=== PATIENT | male | born 1950 | race Caucasian/White ===

== ENCOUNTER → 2018-04-25 11:06 | Outpatient (CLI) | payer MEDICARE, SELFPAY ==
--- NOTE | 2018-04-25 11:06 | DT_ITS ---
This patient was seen during an EMR downtime April 18, 2018 - April 25, 2018. This patient may have a combination of paper and electronic documentation or all paper documentation. All documentation is viewable within the e-chart portion of [email or web address] for each patient visit.
[2018-04-25 12:22] LABS: PSA,Total- Diagnostic 2.23 ng/mL (0.0-4.0)
== END ==
PROVIDERS: Visit Provider Nurse Practitioner Adult Health
DX: R97.20 Elevated prostate specific antigen [PSA] (principal)
CPT/HCPCS: 36415; 84153

== ENCOUNTER → 2018-11-11 08:35 | Outpatient (CLI) | payer MEDICARE, SELFPAY ==
[2018-11-11 07:59] VITALS: BMI 35.6
[2018-11-11 09:50] LABS: Hemoglobin A1c 7.3 % (4.2-6.3)
[2018-11-11 10:11] LABS: Cholesterol 141 mg/dL (200); High Density Lipoprotein 60 mg/dL; Microalbumin:Creatinine Ratio 14.9 mg/g CRE (<30 mg/g CRE); PSA,Total- Diagnostic 0.71 ng/mL (0.0-4.0); Triglycerides 58 mg/dL; Very Low Density Lipoprotein 12 mg/dL (5-40)
== END ==
PROVIDERS: Family Provider Internal Medicine; PCP Internal Medicine; Referring Provider Nurse Practitioner Adult Health; Visit Provider Nurse Practitioner Adult Health
DX: E11.9 Type 2 diabetes mellitus without complications (principal); R97.20 Elevated prostate specific antigen [PSA]
CPT/HCPCS: 80061; 82043; 82570; 83036; 84153

== ENCOUNTER → 2019-03-02 09:29 | Outpatient (CLI) | payer MEDICARE, SELFPAY ==
[2019-03-02 09:01] VITALS: BMI 35.6
[2019-03-02 12:30] LABS: Hemoglobin A1c 6.8 % (4.2-6.3)
== END ==
PROVIDERS: Family Provider Internal Medicine; PCP Internal Medicine; Visit Provider Nurse Practitioner Family
DX: E11.9 Type 2 diabetes mellitus without complications (principal)
CPT/HCPCS: 36415; 83036

== ENCOUNTER → 2019-06-01 09:58 | Outpatient (CLI) | payer MEDICARE, SELFPAY ==
[2019-06-01 09:20] VITALS: BMI 35.6
--- NOTE | 2019-06-01 10:01 | EKG12_ITS ---
Test Reason : PALPITATIONS Blood Pressure : / mmHG Vent. Rate : 075 BPM Atrial Rate : 075 BPM P-R Int : 196 ms QRS Dur : 156 ms QT Int : 414 ms P-R-T Axes : -09 -52 005 degrees QTc Int : 462 ms Sinus rhythm with occasional Premature ventricular complexes Right bundle branch block Left anterior fascicular block Bifascicular block Abnormal ECG Confirmed by BOBBI SAUL, GERMAINE ([id number]), industrial editor MADYSON SANDS ([id number]) on 06/02/2019 1:39:48 PM Referred By: Junior Dominguez Confirmed By:JONNATHAN MARTINES MD
== END ==
PROVIDERS: Family Provider Internal Medicine; PCP Internal Medicine; Referring Provider Nurse Practitioner Family; Visit Provider Nurse Practitioner Family
DX: I49.9 Cardiac arrhythmia, unspecified (principal)
CPT/HCPCS: 93005

== ENCOUNTER → 2019-11-29 08:34 | Outpatient (CLI) | payer MEDICARE, SELFPAY ==
[2019-11-29 08:12] VITALS: BMI 37.3
[2019-11-29 12:16] LABS: Hematocrit 38.6 % (40-54); Hemoglobin 13.3 g/dL (13.0-16.5); Mean Corp Hgb Conc 34.5 g/dL (32-36); Mean Corpuscular Hgb 30.6 pg (27.0-32.0); Mean Corpuscular Volume 88.9 fL (80-94); Mean Platelet Vol. 9.3 fl (6.2-12.0); Platelet Count 233 K/mm3 (150-450); RBC Distribution Width CV 12.7 % (11.6-14.6); RBC Distribution Width SD 41.4 fl (35.1-43.9); Red Blood Count 4.34 M/mm3 (4.6-6.2); White Blood Count 6.7 K/mm3 (4.4-11.0)
[2019-11-29 12:36] LABS: ALB/GLOB Ratio 0.9 RATIO (0.9-2.4); AST(SGOT) 49 U/L (15-37); Alanine Aminotransfer ALT/SGPT 54 U/L (16-61); Albumin, Serum 3.6 g/dL (3.2-5.0); Alkaline Phosphatase 79 U/L (45-117); Anion Gap 7 (5-15); BUN 17 mg/dL (7-18); BUN/Creat Ratio 13.4 RATIO (10-20); Calcium,Total 9.4 mg/dL (8.5-10.1); Chloride 102 mmol/L (98-107); Cholesterol 177 mg/dL (200); Creatinine, Serum 1.27 mg/dL (0.70-1.30); EST Glomerular Filtration Rate 60 mL/min (>60); Est Glom Filt Rate - Afr Amer 72 mL/min (>60); Globulin 3.8 g/dL (2.2-4.2); Glucose 164 mg/dL (74-106); High Density Lipoprotein 51 mg/dL; PSA,Total - Annual Screen 0.34 ng/mL (0.00-4.00); Potassium 3.8 mmol/L (3.5-5.1); Protein, Total 7.4 g/dL (6.4-8.2); Sodium Level 136 mmol/L (136-145); Thyroid Stim Hormone (TSH) 4.29 uIU/mL (0.358-3.74); Triglycerides 106 mg/dL; Very Low Density Lipoprotein 21 mg/dL (5-40)
[2019-11-29 13:18] LABS: Microalbumin,Random Urine 6.5 mg/L (NO RANGE EST.)
[2019-11-29 16:42] LABS: T4 Free Direct 1.01 ng/dL (0.76-1.46)
== END ==
PROVIDERS: Family Provider Internal Medicine; PCP Internal Medicine; Visit Provider Nurse Practitioner Family
DX: E11.9 Type 2 diabetes mellitus without complications (principal); I10 Essential (primary) hypertension; Z12.5 Encounter for screening for malignant neoplasm of prostate; R79.89 Other specified abnormal findings of blood chemistry
CPT/HCPCS: 36415; 80053; 80061; 82043; 82570; 84153; 84439; 84443; 85027; G0103

== ENCOUNTER → 2020-06-06 09:23 | Outpatient (CLI) | payer MEDICARE, SELFPAY ==
[2020-06-06 08:48] VITALS: BMI 35.5
[2020-06-06 13:11] LABS: T4 Free Direct 1.04 ng/dL (0.76-1.46); Thyroid Stim Hormone (TSH) 3.64 uIU/mL (0.358-3.74)
[2020-06-06 14:36] LABS: Absolute Neutrophil Count 4.9 X10^3/uL (2.0-7.7); Basophil# 0.02 X10^3/uL; Basophil% 0.3 % (0-1); Eosinophil# 0.09 X10^3/uL; Eosinophils% 1.3 % (0-5); Hematocrit 38.7 % (40-54); Hemoglobin 13.1 g/dL (13.0-16.5); Lymphocyte % 21.2 % (19-41); Mean Corp Hgb Conc 33.9 g/dL (32-36); Mean Corpuscular Hgb 31.8 pg (27.0-32.0); Mean Corpuscular Volume 93.9 fL (80-94); Mean Platelet Vol. 9.4 fl (6.2-12.0); Monocyte# 0.51 X10^3/uL; Monocyte% 7.2 % (0-10); NRBC Flagged by Analyzer 0 % (0-5); Neutrophil % 69.3 % (47-70); Platelet Count 246 K/mm3 (150-450); RBC Distribution Width CV 12.8 % (11.6-14.6); RBC Distribution Width SD 43.9 fl (35.1-43.9); Red Blood Count 4.12 M/mm3 (4.6-6.2); White Blood Count 7.1 K/mm3 (4.4-11.0)
== END ==
PROVIDERS: Internal Medicine Hematology & Oncology; PCP Internal Medicine; Referring Provider Nurse Practitioner Family; Visit Provider Nurse Practitioner Family
DX: E03.9 Hypothyroidism, unspecified (principal); C83.07 Small cell B-cell lymphoma, spleen; E11.9 Type 2 diabetes mellitus without complications
CPT/HCPCS: 36415; 84439; 84443; 85025

== ENCOUNTER → 2020-10-03 07:05 | Outpatient (CLI) | payer MEDICARE, SELFPAY ==
[2020-10-03 07:23] LABS: Basophil# 0.05 X10^3/uL; Basophil% 0.7 % (0-1); Eosinophil# 0.18 X10^3/uL; Eosinophils% 2.6 % (0-5); Hematocrit 37.3 % (40-54); Hemoglobin 12.3 g/dL (13.0-16.5); Lymphocyte % 28.8 % (19-41); Mean Platelet Vol. 8.8 fl (6.2-12.0); Monocyte# 0.68 X10^3/uL; Monocyte% 9.8 % (0-10); NRBC Flagged by Analyzer 0 % (0-5); Neutrophil % 57.7 % (47-70); Platelet Count 321 K/mm3 (150-450); RBC Distribution Width CV 13.2 % (11.6-14.6); RBC Distribution Width SD 44.2 fl (35.1-43.9); Red Blood Count 3.97 M/mm3 (4.6-6.2); White Blood Count 6.9 K/mm3 (4.4-11.0)
[2020-10-03 07:50] LABS: ALB/GLOB Ratio 0.7 RATIO (0.9-2.4); AST(SGOT) 26 U/L (15-37); Alanine Aminotransfer ALT/SGPT 29 U/L (16-61); Albumin, Serum 3.2 g/dL (3.2-5.0); Alkaline Phosphatase 101 U/L (45-117); Anion Gap 4 (5-15); BUN 16 mg/dL (7-18); BUN/Creat Ratio 13.9 RATIO (10-20); Calcium,Total 9.3 mg/dL (8.5-10.1); Chloride 107 mmol/L (98-107); Cholesterol 130 mg/dL (200); Creatinine, Serum 1.15 mg/dL (0.70-1.30); EST Glomerular Filtration Rate 67 mL/min (>60); Est Glom Filt Rate - Afr Amer 81 mL/min (>60); Globulin 4.4 g/dL (2.2-4.2); Glucose 112 mg/dL (74-106); High Density Lipoprotein 45 mg/dL; Potassium 3.8 mmol/L (3.5-5.1); Protein, Total 7.6 g/dL (6.4-8.2); Sodium Level 140 mmol/L (136-145); Triglycerides 135 mg/dL; Very Low Density Lipoprotein 27 mg/dL (5-40)
[2020-10-03 07:53] LABS: Microalbumin,Random Urine 7.9 mg/L (NO RANGE EST.); Microalbumin:Creatinine Ratio 5.1 mg/g CRE (<30 mg/g CRE)
[2020-10-03 07:57] LABS: Hemoglobin A1c 7.1 % (3.8-5.6)
== END ==
PROVIDERS: PCP Internal Medicine; Referring Provider Nurse Practitioner Family; Visit Provider Nurse Practitioner Family
DX: E11.9 Type 2 diabetes mellitus without complications (principal); I10 Essential (primary) hypertension; J18.9 Pneumonia, unspecified organism
CPT/HCPCS: 36415; 80053; 80061; 82043; 82570; 83036; 85025

== ENCOUNTER → 2020-12-05 10:26 | Outpatient (CLI) | payer MEDICARE, SELFPAY ==
[2020-12-05 09:19] VITALS: BMI 34.9
[2020-12-05 12:30] LABS: Absolute Lymphocyte Count 2.27 X10^3/uL (0.83-4.51); Absolute Neutrophil Count 5.5 X10^3/uL (2.0-7.7); Basophil# 0.04 X10^3/uL; Basophil% 0.5 % (0-1); Eosinophil# 0.21 X10^3/uL; Eosinophils% 2.4 % (0-5); Hematocrit 40.4 % (40-54); Hemoglobin 13.8 g/dL (13.0-16.5); Lymphocyte # 2.27 X10^3/ul (4.0); Lymphocyte % 25.9 % (19-41); Mean Corp Hgb Conc 34.2 g/dL (32-36); Mean Corpuscular Hgb 30.5 pg (27.0-32.0); Mean Corpuscular Volume 89.2 fL (80-94); Mean Platelet Vol. 9.3 fl (6.2-12.0); NRBC Flagged by Analyzer 0 % (0-5); Neutrophil % 62.9 % (47-70); Platelet Count 254 K/mm3 (150-450); RBC Distribution Width CV 12.4 % (11.6-14.6); RBC Distribution Width SD 40.7 fl (35.1-43.9); Red Blood Count 4.53 M/mm3 (4.6-6.2); White Blood Count 8.8 K/mm3 (4.4-11.0)
[2020-12-05 12:50] LABS: ALB/GLOB Ratio 0.9 RATIO (0.9-2.4); AST(SGOT) 30 U/L (15-37); Alanine Aminotransfer ALT/SGPT 38 U/L (16-61); Albumin, Serum 3.7 g/dL (3.2-5.0); Alkaline Phosphatase 80 U/L (45-117); Anion Gap 8 (5-15); BUN 12 mg/dL (7-18); BUN/Creat Ratio 10.2 RATIO (10-20); Calcium,Total 9.3 mg/dL (8.5-10.1); Chloride 102 mmol/L (98-107); Creatinine, Serum 1.18 mg/dL (0.70-1.30); EST Glomerular Filtration Rate 65 mL/min (>60); Est Glom Filt Rate - Afr Amer 78 mL/min (>60); Globulin 3.9 g/dL (2.2-4.2); Glucose 116 mg/dL (74-106); Potassium 3.3 mmol/L (3.5-5.1); Protein, Total 7.6 g/dL (6.4-8.2); Sodium Level 138 mmol/L (136-145)
== END ==
PROVIDERS: PCP Internal Medicine; Referring Provider Nurse Practitioner Family; Visit Provider Nurse Practitioner Family
DX: L03.90 Cellulitis, unspecified (principal); E11.9 Type 2 diabetes mellitus without complications
CPT/HCPCS: 36415; 80053; 85025

== ENCOUNTER → 2020-12-27 06:38 | Outpatient (CLI) | payer MEDICARE, SELFPAY ==
[2020-12-05 09:19] VITALS: BMI 34.9
--- NOTE | 2020-12-27 13:54 | STRESSREP_ITS ---
Stress Test Report Date: 12/27/2020 Procedure: Pharmacologic stress nuclear imaging study Indications: Abnormal EKG, tachycardia Consent: Per the patient Procedure: The patient underwent pharmacologic (Regadenoson) evaluation with a peak heart rate of 89 beats per minute (59%predicted maximal heart rate) and a peak blood pressure of 130/82 mmHg. The baseline ECG demonstrated normal sinus rhythm, right bundle branch block. EKG during lexiscan infusion revealed no significant ischemic changes. EKG post infusion revealed no significant ischemic changes [There were no cardiac dysrhythmias pretest, during pharmacologic infusion, or recovery]. [There was no complaint of chest discomfort during pharmacologic infusion or recovery]. The examination was discontinued secondary to completion of protocol. Impression: 1. Lexiscan stress test test is negative for Lexiscan infusion induced EKG changes of ischemia. 2. Lexiscan stress test test is negative for Lexiscan infusion induced chest pain. 3. Results of the nuclear portion of the test is as below Myocardial perfusion imaging study: Technique: The patient was injected with 13.9 millicuries of technetium 99m Cardiolite and subsequently rest SPECT Cardiolite nuclear imaging was obtained in the horizontal long, vertical long, and short axis views. The patient underwent pharmacologic evaluation. Please see above for details. The patient was injected with 44.1 millicuries of technetium 99m Cardiolite and subsequently stress SPECT Cardiolite nuclear imaging was obtained in the horizontal long, vertical long, and short axis views. A gated Cardiolite study at peak stress was obtained. Interpretation: Rest and stress SPECT Cardiolite nuclear imaging status post realignment, normalization, and attenuation correction demonstrate no large fixed or reversible defect suggestive of large areas of ischemia or infarction. Gated images reveal no significant regional wall motion abnormalities. The reported LVEF is 65%. Impression: 1. There is no evidence of significant ischemia or infarction. 2. Estimated ejection fraction is 65%. This note was generated with [employer] software. It may contain incorrect words, spelling, and punctuation that were not noted in checking the note before signing.
== END ==
PROVIDERS: PCP Internal Medicine; Referring Provider Nurse Practitioner Family; Visit Provider Nurse Practitioner Family
DX: R94.31 Abnormal electrocardiogram [ECG] [EKG] (principal); I10 Essential (primary) hypertension; R00.0 Tachycardia, unspecified; E11.9 Type 2 diabetes mellitus without complications; R07.9 Chest pain, unspecified
CPT/HCPCS: 78452; 93017; A9500; A4216; J2785

== ENCOUNTER → 2021-07-10 10:09 | Outpatient (CLI) | payer MEDICARE, SELFPAY ==
[2021-07-10 12:32] LABS: Hematocrit 38.3 % (40-54); Hemoglobin 13.2 g/dL (13.0-16.5); Mean Corp Hgb Conc 34.5 g/dL (32-36); Mean Corpuscular Hgb 32.6 pg (27.0-32.0); Mean Corpuscular Volume 94.6 fL (80-94); Mean Platelet Vol. 9.4 fl (6.2-12.0); Platelet Count 240 K/mm3 (150-450); RBC Distribution Width CV 12.4 % (11.6-14.6); RBC Distribution Width SD 43.1 fl (35.1-43.9); Red Blood Count 4.05 M/mm3 (4.6-6.2); White Blood Count 8.5 K/mm3 (4.4-11.0)
[2021-07-10 12:48] LABS: Anion Gap 8 (5-15); BUN 13 mg/dL (7-18); BUN/Creat Ratio 11.5 RATIO (10-20); Calcium,Total 9.4 mg/dL (8.5-10.1); Chloride 103 mmol/L (98-107); Cholesterol 145 mg/dL (200); Creatinine, Serum 1.13 mg/dL (0.70-1.30); EST Glomerular Filtration Rate 68 mL/min (>60); Est Glom Filt Rate - Afr Amer 82 mL/min (>60); Glucose 101 mg/dL (74-106); High Density Lipoprotein 43 mg/dL; Potassium 3.5 mmol/L (3.5-5.1); Sodium Level 139 mmol/L (136-145); Thyroid Stim Hormone (TSH) 4.63 uIU/mL (0.358-3.74); Triglycerides 142 mg/dL; Very Low Density Lipoprotein 28 mg/dL (5-40)
[2021-07-10 12:50] LABS: Microalbumin,Random Urine 6.3 mg/L (NO RANGE EST.); Microalbumin:Creatinine Ratio 4.4 mg/g CRE (<30 mg/g CRE)
[2021-07-11 11:25] LABS: T4 Free Direct 0.89 ng/dL (0.76-1.46)
== END ==
PROVIDERS: PCP Internal Medicine; Referring Provider Nurse Practitioner Family; Visit Provider Nurse Practitioner Family
DX: E11.9 Type 2 diabetes mellitus without complications (principal); I10 Essential (primary) hypertension; C83.07 Small cell B-cell lymphoma, spleen
CPT/HCPCS: 36415; 80048; 80061; 82043; 82570; 84439; 84443; 85027

== ENCOUNTER 2022-01-28 16:38 | Outpatient (CLI) | payer MEDICARE, SELFPAY ==
--- NOTE | 2022-01-28 16:40 | RAD_ITS ---
STUDY: X-RAY CHEST REASON FOR EXAM: Male, 71 years old. cough TECHNIQUE: PA and lateral views of the chest. COMPARISON: None. FINDINGS: Lungs are expanded. Right lung is clear. There is a superimposed lingular infiltrate without effusion. There is no demonstrated pleural abnormality. Normal size heart. Normal mediastinum and yeimi. Normal visualized pulmonary arteries. There is atherosclerotic calcification of the aortic arch with tortuosity. There are diffuse degenerative changes of the visualized thoracic spine. There is degenerative osteoarthritis of the bilateral shoulders. There is no demonstrated abnormality of the visualized soft tissue structures of the upper abdomen. RAD/Chest PA and Lateral IMPRESSION: Lingular infiltrate without effusion. Electronically Signed: Reji Scruggs MD at 17:45 EDT ,
== END 2022-01-28 23:59 | disposition home or self-care (01) ==
LOC: MTRAD 16:40
PROVIDERS: PCP Internal Medicine; Referring Provider Nurse Practitioner Family; Visit Provider Nurse Practitioner Family
DX: R05.9 Cough, unspecified (principal)
CPT/HCPCS: 71046

== ENCOUNTER → 2022-03-10 | Outpatient (CLI) | payer MEDICARE, SELFPAY ==
[2022-03-10 16:38] LABS: Absolute Lymphocyte Count 83.23 X10^3/uL (0.83-4.51); Absolute Neutrophil Count 8.4 X10^3/uL (2.0-7.7); Basophil# 0.13 X10^3/uL; Basophil% 0.1 % (0-1); Eosinophil# 0.68 X10^3/uL; Eosinophils% 0.3 % (0-5); Hematocrit 29.8 % (40-54); Hemoglobin 9.1 g/dL (13.0-16.5); Lymphocyte # 83.23 X10^3/ul (0.83-4.51); Lymphocyte % 32.3 % (19-41); Mean Corp Hgb Conc 30.5 g/dL (32-36); Mean Corpuscular Hgb 30.1 pg (27.0-32.0); Mean Corpuscular Volume 98.7 fL (80-94); Mean Platelet Vol. 8.9 fl (6.2-12.0); Monocyte# 162.59 X10^3/uL; Monocyte% 63.2 % (0-10); NRBC Flagged by Analyzer 0 % (0-5); Neutrophil # 8.36 X10^3/uL (2.7-7.7); Neutrophil % 3.2 % (47-70); POSITIVE COUNT YES; POSITIVE DIFFERENTIAL YES; POSITIVE MORPHOLOGY YES; Platelet Count 101 K/mm3 (150-450); RBC Distribution Width CV 16.3 % (11.6-14.6); RBC Distribution Width SD 57.5 fl (35.1-43.9); Red Blood Count 3.02 M/mm3 (4.6-6.2); White Blood Count 257.3 K/mm3 (4.4-11.0)
[2022-03-10 16:51] LABS: Differential Indicated SCAN CRITERIA MET
[2022-03-10 17:12] LABS: ALB/GLOB Ratio 0.8 RATIO (0.9-2.4); AST(SGOT) 58 U/L (15-37); Alanine Aminotransfer ALT/SGPT 26 U/L (16-61); Albumin, Serum 3.2 g/dL (3.2-5.0); Alkaline Phosphatase 154 U/L (45-117); Anion Gap 8 (5-15); BUN 15 mg/dL (7-18); BUN/Creat Ratio 14.2 RATIO (10-20); Calcium,Total 8.7 mg/dL (8.5-10.1); Chloride 104 mmol/L (98-107); Cholesterol 196 mg/dL (200); Creatinine, Serum 1.06 mg/dL (0.70-1.30); EST Glomerular Filtration Rate 73 mL/min (>60); Est Glom Filt Rate - Afr Amer 88 mL/min (>60); Glucose 83 mg/dL (74-106); High Density Lipoprotein 24 mg/dL; PSA,Total - Annual Screen 0.26 ng/mL (0.00-4.00); Potassium 3.9 mmol/L (3.5-5.1); Protein, Total 7.2 g/dL (6.4-8.2); Sodium Level 137 mmol/L (136-145); Thyroid Stim Hormone (TSH) 3.81 uIU/mL (0.358-3.74); Triglycerides 259 mg/dL; Very Low Density Lipoprotein 52 mg/dL (5-40)
[2022-03-10 17:17] LABS: Atypical Lymphocyte 2+ %
[2022-03-10 17:18] LABS: Smudge Cells 1+
[2022-03-15 21:25] LABS: Pathologist Review Reviewed
== END | disposition home or self-care (01) ==
LOC: BIMLAB 14:56
PROVIDERS: PCP Internal Medicine; Referring Provider Nurse Practitioner Family; Visit Provider Nurse Practitioner Family
DX: C83.07 Small cell B-cell lymphoma, spleen (principal); E11.9 Type 2 diabetes mellitus without complications; I10 Essential (primary) hypertension; Z12.5 Encounter for screening for malignant neoplasm of prostate
CPT/HCPCS: 36415; 80053; 80061; 84153; 84443; 85025; G0103

== ENCOUNTER 2022-04-17 09:03 | Outpatient (CLI) | payer MEDICARE, SELFPAY ==
[2022-04-17] VITALS (7 sets, daily range): BP systolic 94–118; BP diastolic 53–69; PULSE 98–107; RESP 16–20; TEMP 35.8–37.2; O2SAT 94–100; BMI 34.9
[2022-04-17] MEDS: 0.9% NaCl Peripheral Flush Adult/Peds IV (10:12)
[2022-04-17] MEDS: Furosemide 20 MG/2 ML VIAL IV (12:53)
== END 2022-04-17 23:59 | disposition home or self-care (01) ==
LOC: MEDOUTP 09:03
PROVIDERS: PCP Internal Medicine; Referring Provider Internal Medicine Hematology & Oncology; Visit Provider Internal Medicine Hematology & Oncology
DX: C85.99 Non-Hodgkin lymphoma, unspecified, extranodal and solid organ sites (principal); D63.8 Anemia in other chronic diseases classified elsewhere
CPT/HCPCS: 36430; 86850; 86900; 86901; 86920; 86922; J7030; P9016; A4216; J1940

== ENCOUNTER 2022-04-17 19:52 | Inpatient (IN) | payer MEDICARE, SELFPAY ==
[2022-04-17] VITALS (8 sets, daily range): BP systolic 95–109; BP diastolic 56–70; PULSE 88–108; RESP 20–30; TEMP 36.6–37.7; O2SAT 91–99; BMI 35.6; BMI 35.0
--- NOTE | 2022-04-17 20:06 | EKG12_ITS ---
Test Reason : SOB Blood Pressure : / mmHG Vent. Rate : 104 BPM Atrial Rate : 104 BPM P-R Int : 200 ms QRS Dur : 144 ms QT Int : 364 ms P-R-T Axes : 150 -36 -27 degrees QTc Int : 478 ms Unusual P axis, possible ectopic atrial tachycardia with Premature atrial complexes Left axis deviation Right bundle branch block Abnormal ECG Confirmed by SOCORRO SAUL, TE ([id number]), features editor MELINDA COREAS ([id number]) on 04/20/2022 1:05:50 PM Referred By: Confirmed By:TE QUINTANILLA MD
--- NOTE | 2022-04-17 20:13 | EDS_ITS ---
HPI History of Present Illness Chief Complaint: Shortness of Breath Detail of Chief Complaint: Shortness of breath with cough and fever Informant: patient and family Onset/Context/Timing Onset: Days Context: sudden Timing: Continuous Quality: Positive for Dyspnea on exertion; Negative for Orthopnea and PND Current Severity: Mild Maximum Severity: Moderate Worsened by: Exertion Relieved by: Nothing Associated Symptoms cough, fever, chills and sweats; Negative for rhinorrhea, post nasal drip, ear pain, sore throat or other Chest Pain: Positive for None Narrative Narrative: Patient is a 71-year-old male with diagnosis of lymphoma who was recently discharged from [facility]. His local oncologist is Dr. Manny Alvarado. He presents because of shortness of breath, rapid heartbeat, fever. He was discharged from [facility] on oxygen. He is hard of hearing. He denies headache. He denies change in vision. He denies ear pain or drainage. He denies productive cough. The cough is nonproductive. He denies chest discomfort. He complains of weakness and lightheadedness. His systolic pressure is normally 1 15-1 20 per daughter. There is no history of PE or DVT. There is no history of vomiting or diarrhea. There is no history of dysuria, frequency, urgency or hematuria. Daughter is concerned he has a ulcer over the sacral area. Patient does not have a port. Per patient and daughter there is no allergies to antibiotics. PE Risk Factors: Positive for Cancer and Recent immobilization; Negative for OCP + Smoking + > 35, Prior DVT or PE, Recent surgery and Recent travel Prior similar symptoms: No Recent Illness/Hospitalization: Yes PFSH [facility] Medical History Arthritis Cough Diabetes GERD (gastroesophageal reflux disease) Hearing loss Hypertension Lymphoma, marginal zone, spleen Stomach ulcer Home Medications cinnamon bark 500 mg capsule 500 mg PO BID cap 08/12/18 [History Last Taken Unknown] colby (Zingiber officinalis) 550 mg capsule 550 mg PO BID cap 08/12/18 [History Last Taken Unknown] turmeric root extract 500 mg capsule 500 mg PO BID 08/12/18 [History Last Taken Unknown] curaliam PO BID 12/05/20 [History Last Taken Unknown] metformin 1,000 mg tablet 1,000 mg PO BID #180 tab 04/10/21 [Rx Last Taken Unknown] blood sugar diagnostic #50 ea 03/10/22 [Rx Last Taken Unknown] blood-glucose meter #1 ea 03/10/22 [Rx Last Taken Unknown] lancets 28 gauge #50 ea 03/10/22 [Rx Last Taken Unknown] simvastatin 10 mg tablet 10 mg PO QHS #90 tab 03/10/22 [Rx Last Taken Unknown] allopurinol 100 mg PO DAILY 04/17/22 [History Last Taken Unknown] furosemide 40 mg PO BID 04/17/22 [History Last Taken Unknown] glipizide 2.5 mg PO BID 04/17/22 [History Last Taken Unknown] lansoprazole 30 mg PO DAILY PRN 04/17/22 [History Last Taken Unknown] potassium chloride 20 meq PO BID 04/17/22 [History Last Taken Unknown] wheelchair #1 ea 04/17/22 [Rx Last Taken Unknown] Allergy/AdvReac Type Severity Reaction Status Date / Time No Known Allergies Allergy Unverified 03/10/22 14:32 Family History Father Arthritis Myocardial infarction, Onset Age: 72 Heart disease Hypertension CVA (cerebral vascular accident) Mother Arthritis Diabetes Hypertension Heart disease Surgical History History of orthopedic surgery Social History (Updated 04/17/22 @ 20:[address] Kamar Vargas MD) household members: none Smoking Status: Former smoker Tobacco: How many years used: 20 Smokeless tobacco user: chewing tobacco how long ago did patient quit smokin alcohol intake: never substance use type: does not use what type of physical activity do you participate in: none ROS ROS ED Constitutional Constitutional ED: Reports chills, fever(s) and sweats Eyes Eyes: Denies blurry vision, change in vision or diplopia ENT ENT ED: Denies ear pain, rhinorrhea or sore throat Cardiovascular Cardiovascular: Reports racing heartbeat; Denies chest pain, orthopnea, palpitations or paroxysmal nocturnal dyspnea Respiratory/Chest Respiratory/Chest: Reports cough, dyspnea and dyspnea on exertion; Denies orthopnea, paroxysmal nocturnal dyspnea or sputum Gastrointestinal Gastrointestinal: Reports nausea; Denies abdominal pain, constipation, diarrhea, melena or vomiting Genitourinary Genitourinary ED: Denies dysuria, hematuria or urinary frequency Musculoskeletal Musculoskeletal: Denies arthralgias, myalgias or neck pain Integumentary Reports other Details: Daughter is concerned for sacral sore. ; Denies abscess, Abrasions or rash Neurologic Neurologic: Reports headache(s) and weakness; Denies paresthesias Endocrine Endocrinology: Denies polydipsia, polyphagia or polyuria Hematologic/Lymphatic Hematologic/Lymphatic: Denies easy bleeding or easy bruising Allergic/Immunologic Allergic/Immunologic ED: Denies urticaria EXAM Physical Exam Const Vital Signs: 04/17/22 19:53 04/17/22 20:01 04/17/22 20:04 Temperature 99.9 F H 99.9 F H Temperature Source Oral Oral Pulse Rate 108 H 108 H Respiratory Rate 30 H 27 H Respiratory Effort Normal Non-Labored Respiratory Depth Normal Respiratory Pattern Tachypnea Blood Pressure 109/69 95/60 Blood Pressure Mean 82 71 Pulse Ox 91 92 Oxygen Delivery Method Nasal Cannula Nasal Cannula Nasal Cannula Oxygen Flow Rate (L/min) 3 3 3 04/17/22 20:14 04/17/22 20:15 04/17/22 21:08 Temperature 98.9 F 98.3 F Temperature Source Oral Oral Pulse Rate 104 H 95 Respiratory Rate 29 H 24 H Respiratory Effort Respiratory Depth Respiratory Pattern Blood Pressure 102/63 103/56 L Blood Pressure Mean 76 71 Pulse Ox 92 95 Oxygen Delivery Method Nasal Cannula Venturi Mask Nasal Cannula Oxygen Flow Rate (L/min) 3 2 3 04/17/22 22:10 Temperature 97.9 F Temperature Source Oral Pulse Rate 93 Respiratory Rate 26 H Respiratory Effort Respiratory Depth Respiratory Pattern Blood Pressure 100/68 Blood Pressure Mean 78 Pulse Ox 97 Oxygen Delivery Method Nasal Cannula Oxygen Flow Rate (L/min) 3 Positive well nourished, well developed and obese General Appearance ED: well developed, pallor and other Patient appears tachypneic. He is pale. Daughter states he received blood today. ; Negative for NAD Nutritional Appearance: obese HEENT Reports TM's clear and dry mucous membranes HEENT Narrative: Nares patent. Posterior pharynx out erythema or exudate. atraumatic Tympanic Membrane ED: Yes TM's clear Mouth ED: Yes dry mucous membranes Mouth: dry mucous membranes Eyes PERRL and EOMs intact bilaterally General Eye ED: Yes pale conjunctiva; Negative for scleral icterus Neck no lymphadenopathy, supple, no meningeal signs and no JVD Resp No normal respiratory effort and No clear to auscultation bilaterally Auscultation: rales bilateral lower Cardio regular rhythm, S1 normal heart sound, S2 normal heart sound and no murmurs Rate: tachycardic GI non-tender, non-distended and no masses GI Narrative: Bruising noted where he received his insulin injections while in the hospital Auscultation: normoactive bowel sounds Palpation: soft Back/Spine no CVA tenderness and normal to inspection Extremity normal to inspection General Extremety ED: Negative for edema or tenderness General Extremity: Negative for edema Neuro oriented x3, CN's II-XII intact bilaterally and no sensory deficits noted [place] Coma Scale: document GCS findings Spontaneous Obeys Commands Oriented 15 Sensorium / Orientation: Negative for alert Motor Exam: general weakness Psych mental status grossly normal Thought Process: normal thought process Skin no wounds General Skin Exam: pallor; Negative for jaundice Lesions: no lesions Rashes: no rashes MDM MDM MDM Narrative Medical decision making narrative: With fever, tachypnea and tachycardia and hypotension and sepsis work-up was undertaken. Doubt pulmonary embolus. Since patient has rales bilaterally he was started on Rocephin and azithromycin for presumed respiratory infection. Since he does not have a port he did not receive dose of vancomycin. CBC was obtained to assess white count as well as H&H. Comprehensive metabolic panel to assess for any endorgan dysfunction and his renal function. Since he is hypotensive 1 L of normal saline was ordered. His systolic is greater than 90 and his MAP is greater than 65. Patient's blood pressure did respond to the liter of normal saline. Blood pressure is trending downward. Since there is concerned this may represent viral pneumonia and specifically COVID second bolus was for 500 cc only. Radiology interpretation reveals that this may represent transfusion related symptoms. Patient symptoms started prior to the transfusion and had a documented temperature at home for the past 4 days. Patient did have an elevated temperature after the transfusion. This could represent a transfusion reaction. However, in light of fever for the past 4 days will treat empirically with antibiotics. Lab Data Attestation: I reviewed the patient's lab results. Lab results narrative: White count is elevated; however, patient has history of lymphoma. This is markedly improved from prior. Macrocytic anemia noted. PT/INR and PTT are ? markable. Comprehensive metabolic panel remarkable for mild acute renal insufficiency with a GFR of 54. Glucose is elevated 149. CO2 and anion gap are normal. Calcium is low however normal when corrected for hypoalbuminemia. Labs: Laboratory Results - last 24 hr 04/17/22 04/17/22 04/17/22 19:50 19:50 19:50 WBC 26.1 H RBC 2.94 L Hgb 9.0 L Hct 28.5 L MCV 96.9 H MCH 30.6 MCHC 31.6 L RDW Std Deviation 65.4 H RDW Coeff of Liliana 18.9 H Plt Count 113 L MPV 9.6 Immature Gran % (Auto) 2.500 H Neut % (Auto) 28.6 L Lymph % (Auto) 28.6 Nobles % (Auto) 39.7 H Eos % (Auto) 0.3 Baso % (Auto) 0.3 Absolute Neuts (auto) 7.5 Absolute Lymphs (auto) 7.46 H Nucleated RBC % 0.2 Differential Comment SEE COMMENTS Diff Path Review May foll Atypical Lymphocytes 1+ Platelet Estimate SLT DEC RBC Morphology N CHROM Anisocytosis 1+ Macrocytosis 1+ PT 14.2 INR 1.1 APTT 37.9 H Sodium 136 Potassium 3.7 Chloride 101 Carbon Dioxide 27.0 Anion Gap 8 BUN 29 H Creatinine 1.38 H Estim Creat Clear Calc 45.24 Est GFR (MDRD) Af Amer 65 Est GFR (MDRD) Non-Af 54 L BUN/Creatinine Ratio 21.0 H Glucose 149 H Lactic Acid Calcium 8.4 L Total Bilirubin 1.00 AST 77 H ALT 48 Alkaline Phosphatase 156 H Total Protein 6.0 L Albumin 2.5 L Globulin 3.5 Albumin/Globulin Ratio 0.7 L 04/17/22 04/17/22 19:50 20:58 WBC RBC Hgb Hct MCV MCH MCHC RDW Std Deviation RDW Coeff of Liliana Plt Count MPV Immature Gran % (Auto) Neut % (Auto) Lymph % (Auto) Nobles % (Auto) Eos % (Auto) Baso % (Auto) Absolute Neuts (auto) Absolute Lymphs (auto) Nucleated RBC % Differential Comment Diff Path Review Atypical Lymphocytes Platelet Estimate RBC Morphology Anisocytosis Macrocytosis PT INR APTT Sodium Potassium Chloride Carbon Dioxide Anion Gap BUN Creatinine Estim Creat Clear Calc Est GFR (MDRD) Af Amer Est GFR (MDRD) Non-Af BUN/Creatinine Ratio Glucose Lactic Acid Cancelled 1.4 Calcium Total Bilirubin AST ALT Alkaline Phosphatase Total Protein Albumin Globulin Albumin/Globulin Ratio Radiography Chest X-Ray - ED: 1 View and Read by ED Physician (View portable chest x-ray reveals bilateral interstitial infiltrates. Based on patient's history this is consistent with pneumonia. Cardiac silhouette is unremarkable. Cardiac size is slightly enlarged. There is no abnormality osseous structures. There is no perihilar lymphadenopathy noted. Th) Diagnostic Testing: Clinical Impression(s) from Imaging Studies Chest X-Ray 04/17/22 20:15 IMPRESSION: Findings consistent with infection versus pulmonary edema including noncardiogenic pulmonary edema which may be transfusion related. Electronically Signed: Christophe Vargas MD at 20:31 EDT , EKG Initial EKG: Attestation: I personally reviewed and interpreted this EKG as follows: Interpretation: Sinus Tachycardia (Ventricular rate is 104. NH interval is 200 ms. Cures duration 144 ms. QRS morphology consistent with right bundle branch block. QT duration 3 and 64 ms. [place] to the left. No acute ischemic changes noted) Critical Care Time Critical Care Time: Yes Critical care time (excluding procedures): 30-74 minutes (33 minutes), Including time spent: (History, physical, documentation, review of prior records. Interpretation laboratory results and initiation of therapy for bilateral interstitial pneumonia), Discussing w/Patient &/or Family/[employer] Team Member, Discussing w/Consultants and Arranging Admission or Transfer Discharge Plan Dx/Rx/DC Orders Clinical Impression: Bilateral interstitial pneumonia, Lymphoma, marginal zone, spleen, Diabetes, Hypertension, Acute hypotension, Acute and chronic respiratory failure with hypoxia, Sinus tachycardia Disposition Disposition: Acute Care [facility]
--- NOTE | 2022-04-17 20:15 | RAD_ITS ---
INDICATION: Dyspnea, bilateral rales, fever EXAMINATION/TECHNIQUE: X-RAY - portable upright AP chest x-ray COMPARISON: 01/28/2022 FINDINGS: LINES/DEVICES: None. LUNGS: Vascular congestion with hazy bilateral airspace opacities. No consolidations or definite pleural effusions. MEDIASTINUM AND CARDIOVASCULAR STRUCTURES: Cardiac silhouette not enlarged. Central airways and mediastinal contour are unremarkable. BONES AND SOFT TISSUES: No acute abnormalities. RAD/Chest 1 View (Portable) IMPRESSION: Findings consistent with infection versus pulmonary edema including noncardiogenic pulmonary edema which may be transfusion related. Electronically Signed: Christophe Vargas MD at 20:31 EDT ,
[2022-04-17] MEDS: 0.9% Normal Saline 1,000 ML 999 ML IV (20:28)
[2022-04-17 21:05] LABS: Absolute Lymphocyte Count 7.46 X10^3/uL (0.83-4.51); Absolute Neutrophil Count 7.5 X10^3/uL (2.0-7.7); Basophil# 0.07 X10^3/uL; Basophil% 0.3 % (0-1); Eosinophil# 0.07 X10^3/uL; Eosinophils% 0.3 % (0-5); Hematocrit 28.5 % (40-54); Lymphocyte # 7.46 X10^3/ul (0.83-4.51); Lymphocyte % 28.6 % (19-41); Mean Corp Hgb Conc 31.6 g/dL (32-36); Mean Corpuscular Hgb 30.6 pg (27.0-32.0); Mean Corpuscular Volume 96.9 fL (80-94); Mean Platelet Vol. 9.6 fl (6.2-12.0); Monocyte# 10.35 X10^3/uL; Monocyte% 39.7 % (0-10); NRBC Flagged by Analyzer 0.2 % (0-5); Neutrophil # 7.47 X10^3/uL (2.7-7.7); Neutrophil % 28.6 % (47-70); POSITIVE DIFFERENTIAL YES; POSITIVE MORPHOLOGY YES; Platelet Count 113 K/mm3 (150-450); RBC Distribution Width CV 18.9 % (11.6-14.6); RBC Distribution Width SD 65.4 fl (35.1-43.9); Red Blood Count 2.94 M/mm3 (4.6-6.2); White Blood Count 26.1 K/mm3 (4.4-11.0)
[2022-04-17 21:10] LABS: International Normalized Ratio 1.1; Prothrombin Time (Protime)PT. 14.2 SECONDS (11.7-14.9)
[2022-04-17 21:11] LABS: Partial Thromboplast Time 37.9 Seconds (24.1-36.2)
[2022-04-17 21:39] LABS: ALB/GLOB Ratio 0.7 RATIO (0.9-2.4); AST(SGOT) 77 U/L (15-37); Alanine Aminotransfer ALT/SGPT 48 U/L (16-61); Albumin, Serum 2.5 g/dL (3.2-5.0); Alkaline Phosphatase 156 U/L (45-117); Anion Gap 8 (5-15); BUN 29 mg/dL (7-18); Calcium,Total 8.4 mg/dL (8.5-10.1); Chloride 101 mmol/L (98-107); Creatinine, Serum 1.38 mg/dL (0.70-1.30); EST Glomerular Filtration Rate 54 mL/min (>60); Est Glom Filt Rate - Afr Amer 65 mL/min (>60); Estimated Creatinine Clearance 45.24 ml/min; Globulin 3.5 g/dL (2.2-4.2); Glucose 149 mg/dL (74-106); Potassium 3.7 mmol/L (3.5-5.1); Sodium Level 136 mmol/L (136-145)
[2022-04-17 21:41] LABS: Differential Indicated SCAN CRITERIA MET
[2022-04-17 21:43] LABS: Atypical Lymphocyte 1+ %; Differential Comment SEE COMMENTS
[2022-04-17 21:44] LABS: Anisocytosis 1+; Platelet Estimate SLT DEC (ADEQ); Red Cell Morphology N CHROM NORMAL (NORM C&C)
[2022-04-17 21:45] LABS: Lactic Acid 1.4 mmol/L (0.4-1.9)
[2022-04-17 21:45] LABS: Macrocytosis 1+
--- NOTE | 2022-04-17 22:21 | HP.PCM.HOS_ITS ---
HPI - General General Date of Admission: 04/17/22 Date of Service: 04/17/22 Chief Complaint: Weakness, Febrile, s/p 04/17/22 Bld transfusion HPI Narrative The patient is a 71 y/o M w/ PMHx: Former cigarette tobacco->chew tobacco, CKD stage II, OA, Obesity, Diabetes mellitus type II, GERD w/ Hx gastric ulcer, Splenic marginal zone Lymphoma following w/ Dr. Alvarado who presents to the [facility] ED on 04/17/22 with history of nonproductive cough, recurrent fevers with T 104 after transfusion on day of presentation and acute transiently worsened dyspnea with hypoxia down to 83% on RA which took nearly 1 hour to recover following PRBC transfusion on day of presentation with associated diaphoresis, chills, lightheadedness and significant weakness with recent discharge from [facility] 4 days prior to current presentation with a 2-week admission noted to have been initially treated with chemotherapy however he was noted to be hypotensive and aggressively hydrated with unfortunately resulting overload with pleural effusions and CHF exacerbation with serial intermittent fevers with negative blood culture, negative urine culture, negative sputum culture, CT of the chest with nodular densities treated with prolonged antibiotic therapies despite this ongoing fevers with infectious disease involvement as well eventually discharged on 2 L nasal cannula still noted to be intermittently febrile with high suspicion that it was related specifically to his cancer diagnosis. Patient of note did receive an IV lasix administration with his PRBC transfusion. Patient presentation nearly completely resolved following resolution of fevers per discussion with family and patient to his prior baseline. Work-up in the ED included T97.8 With T-max in the ED 99.9, heart rate 100, BP initially 96/53, respiratory rate 18, 100% on 3 L nasal cannula with most recent vital signs with blood pressure 100/68, respiratory rate 26 with reported increased work of breathing and accessory muscle usage and at home 83% on the 2L NC, 97% on 3 L nasal cannula, CBC with WC 26.1, hemoglobin 9, platelet 113 with left shift, coags with PTT 37.9 otherwise not marked appearing, CMP with BUN/creat 29/1.38, glucose 149, lactic acid 1.4, T bili 1, AST/LT 77/40, alk phos 156, chest x-ray with findings consistent with infection versus pulmonary edema including noncardiogenic pulmonary edema possibly related to transfusion, rapid COVID antigen negative, blood culture x2 pending per ED, given patient rales bilaterally patient initiated in the ED on Rocephin and azithromycin for presumed respiratory infection, EKG with sinus tachycardia with right bundle branch block with no acute evidence of ischemia. Patient was additionally administered 1 L normal saline secondary to hypotension. [facility] Medical History (Updated 04/17/22 @ 22:[address] Kamar Vargas MD) Arthritis Cough Diabetes GERD (gastroesophageal reflux disease) Hearing loss Hypertension Lymphoma, marginal zone, spleen Stomach ulcer Home Medications cinnamon bark 500 mg capsule 500 mg PO BID cap 08/12/18 [History Last Taken 04/17/22] colby (Zingiber officinalis) 550 mg capsule 550 mg PO BID cap 08/12/18 [History Last Taken 04/17/22] turmeric root extract 500 mg capsule 500 mg PO BID 08/12/18 [History Last Taken 04/17/22] curaliam PO BID 12/05/20 [History Last Taken 04/17/22] blood sugar diagnostic #50 ea 03/10/22 [Rx Last Taken Unknown] blood-glucose meter #1 ea 03/10/22 [Rx Last Taken Unknown] lancets 28 gauge #50 ea 03/10/22 [Rx Last Taken Unknown] allopurinol 100 mg PO DAILY 04/17/22 [History Last Taken 04/17/22] furosemide 40 mg PO BID 04/17/22 [History Last Taken 04/17/22] glipizide 2.5 mg PO BID 04/17/22 [History Last Taken 04/17/22] lansoprazole 30 mg PO DAILY PRN 04/17/22 [History Last Taken 04/17/22] metformin 1,000 mg PO BID 04/17/22 [History Last Taken 04/17/22] potassium chloride 20 meq PO BID 04/17/22 [History Last Taken 04/17/22] simvastatin 10 mg PO QHS 04/17/22 [History Last Taken 04/16/22] wheelchair #1 ea 04/17/22 [Rx Last Taken Unknown] Allergy/AdvReac Type Severity Reaction Status Date / Time No Known Allergies Allergy Unverified 03/10/22 14:32 Family History Father Arthritis Myocardial infarction, Onset Age: 72 Heart disease Hypertension CVA (cerebral vascular accident) Mother Arthritis Diabetes Hypertension Heart disease Surgical History (Updated 04/17/22 @ 23:[address] Khadra Daley MD) History of orthopedic surgery Hx of cataract extraction Social History (Updated 04/17/22 @ 23:[address] Khadra Daley MD) household members: none Smoking Status: Former smoker Tobacco: How many years used: 20 Smokeless tobacco user: chewing tobacco how long ago did patient quit smoking: Quit cigarette tobacco 1981, still using chew tobacco. alcohol intake: never substance use type: does not use what type of physical activity do you participate in: none ROS ROS Narrative Admission Review of Systems: CONSTITUTIONAL: No weight loss, + fever, chills, weakness or fatigue. HEENT: Eyes: No visual loss, blurred vision, double vision or yellow sclerae. Ears, Nose, Throat: No hearing loss, sneezing, congestion, runny nose or sore throat. SKIN: No rash or itching, lesions, wounds. CARDIOVASCULAR: No chest pain, chest pressure or chest discomfort, palpitations, edema, orthopnea, syncopal events. RESPIRATORY: + Shortness of breath, cough without marked sputum, No wheezing, hemoptysis. GASTROINTESTINAL: No anorexia, nausea, vomiting or diarrhea, abdominal pain, melena, BRBPR. GENITOURINARY: No dysuria, frequency, urgency or retention. NEUROLOGICAL: + LH, dizziness. No headache, syncope, paralysis, ataxia, numbness or tingling in the extremities, focal weakness, change in bowel or bladder control, seizure. MUSCULOSKELETAL: + muscle, back pain, joint pain or stiffness. HEMATOLOGIC: + anemia, bleeding or bruising. LYMPHATICS: No enlarged nodes. No history of splenectomy. PSYCHIATRIC: No history of depression or anxiety. ENDOCRINOLOGIC: No reports of sweating, cold or heat intolerance. No polyuria or polydipsia. ALLERGIES: No history of asthma, hives, eczema or rhinitis. Vital Signs Vital Signs Vital Signs: 04/17/22 19:53 04/17/22 20:01 04/17/22 20:04 Temperature 99.9 F H 99.9 F H Temperature Source Oral Oral Pulse Rate 108 H 108 H Respiratory Rate 30 H 27 H Respiratory Effort Normal Non-Labored Respiratory Depth Normal Respiratory Pattern Tachypnea Blood Pressure 109/69 95/60 Blood Pressure Mean 82 71 Pulse Ox 91 92 Oxygen Delivery Method Nasal Cannula Nasal Cannula Nasal Cannula Oxygen Flow Rate (L/min) 3 3 3 04/17/22 20:14 04/17/22 20:15 04/17/22 21:08 Temperature 98.9 F 98.3 F Temperature Source Oral Oral Pulse Rate 104 H 95 Respiratory Rate 29 H 24 H Respiratory Effort Respiratory Depth Respiratory Pattern Blood Pressure 102/63 103/56 L Blood Pressure Mean 76 71 Pulse Ox 92 95 Oxygen Delivery Method Nasal Cannula Venturi Mask Nasal Cannula Oxygen Flow Rate (L/min) 3 2 3 04/17/22 22:10 Temperature 97.9 F Temperature Source Oral Pulse Rate 93 Respiratory Rate 26 H Respiratory Effort Respiratory Depth Respiratory Pattern Blood Pressure 100/68 Blood Pressure Mean 78 Pulse Ox 97 Oxygen Delivery Method Nasal Cannula Oxygen Flow Rate (L/min) 3 Weight Weight: 227 lb 12.8 oz Body Mass Index (BMI) 35.6 Physical Exam Narrative Physical Examination: General: Awake, alert, oriented x 3 and cooperative, seated upright in the ED bed, mildly hard of hearing, respiratory distress is significantly improved since initial ED evaluation. Skin: Normal color, normal turgor, no icterus, no cyanosis except very staged ecchymoses including to the abdomen. HEENT: AT/NC, EOMI, PERRLA, mildly dry MM, no carotid bruits or JVD noted. Lungs: Diminished, greater bases, mildly increased work of breathing accessory muscle usage but significantly improved since prior, respiratory distress resolving, no rales, ronchi or wheezing. Heart: Tachycardic with regular rhythm; no gallop, rub audible. Abdomen: Soft, obese, NTTP, ND, distant normal BS, no obvious evidence of HSM; however, habitus makes evaluation difficult. Extremities: No cyanosis, no clubbing, bilateral ankle to distal estevez nonpitting edema. Neurological: Patient awake, alert, oriented as noted, cognitive function improv ing, now appears baseline intact as had been confused with onset of fevers per family report following transfusion; pupils equally reactive to light and accommodation, cranial nerves II-XII grossly normal, moving all 4 extremities, no focal deficits, strength severely global decreased. Psychiatric: Affect appears fatigued otherwise currently improved, respiratory distress has lessened, patient no longer confused has had been transiently encephalopathic while febrile, no acute evidence of depressive or anxiety feelings. Results Lab / Micro Data Result Diagrams: 04/17/22 19:50 04/17/22 19:50 Labs: Laboratory Results - last 24 hr 04/17/22 19:50: WBC 26.1 H, RBC 2.94 L, Hgb 9.0 L, Hct 28.5 L, MCV 96.9 H, MCH 30.6, MCHC 31.6 L, RDW Std Deviation 65.4 H, RDW Coeff of Liliana 18.9 H, Plt Count 113 L, MPV 9.6, Immature Gran % (Auto) 2.500 H, Neut % (Auto) 28.6 L, Lymph % (Auto) 28.6, Lamar % (Auto) 39.7 H, Eos % (Auto) 0.3, Baso % (Auto) 0.3, Absolute Neuts (auto) 7.5, Absolute Lymphs (auto) 7.46 H, Nucleated RBC % 0.2, Differential Comment SEE COMMENTS, Diff Path Review May foll, Atypical Lymphocytes 1+, Platelet Estimate SLT DEC, RBC Morphology N CHROM, Anisocytosis 1+, Macrocytosis 1+ 04/17/22 19:50: PT 14.2, INR 1.1, APTT 37.9 H 04/17/22 19:50: Sodium 136, Potassium 3.7, Chloride 101, Carbon Dioxide 27.0, Anion Gap 8, BUN 29 H, Creatinine 1.38 H, Estim Creat Clear Calc 45.24, Est GFR (MDRD) Af Amer 65, Est GFR (MDRD) Non-Af 54 L, BUN/Creatinine Ratio 21.0 H, Glucose 149 H, Calcium 8.4 L, Total Bilirubin 1.00, AST 77 H, ALT 48, Alkaline Phosphatase 156 H, Total Protein 6.0 L, Albumin 2.5 L, Globulin 3.5, Albumin/Globulin Ratio 0.7 L 04/17/22 19:50: Lactic Acid Cancelled 04/17/22 20:58: Lactic Acid 1.4 Micro: Microbiology 04/17/22 20:30 Nasal Secretion SARS-CoV-2 & FLU Antigen (Rapid) - Final Radiology Impression Chest X-Ray 04/17/22 20:15 IMPRESSION: Findings consistent with infection versus pulmonary edema including noncardiogenic pulmonary edema which may be transfusion related. Electronically Signed: Christophe Vargas MD at 20:31 EDT , Assessment & Plan Assessment/Plan (1) Bilateral interstitial pneumonia: (2) Acute hypotension: (3) Acute and chronic respiratory failure with hypoxia: PLAN: The patient is a 71 y/o M w/ PMHx: Former cigarette tobacco->chew tobacco, CKD stage II, OA, Obesity, Diabetes mellitus type II, GERD w/ Hx gastric ulcer, Splenic marginal zone Lymphoma following w/ Dr. Alvarado who presents to the [facility] ED on 04/17/22 with history of nonproductive cough, recurrent fevers with T 104 after transfusion on day of presentation and acute transiently worsened dyspnea with hypoxia down to 83% on RA which took nearly 1 hour to recover following PRBC transfusion on day of presentation with associated diaphoresis, chills, lightheadedness and significant weakness with recent discharge from [facility] 4 days prior to current presentation with a 2-week admission. #1. Acute Encephalopathy (Toxic) secondary to Acute Hypoxic Respiratory Failure on Chronic secondary to Possible BL Pneumonia, Possible GP/GN Organisms versus possible concurrent OR alternately Interstitial Infiltrates from Transfusion Reaction (TACO): Will admit to PCU, held on IV lasix given more concern for PNA than TACO, given NS bolus in the ED secondary to hypotension with improvement but if needed my diuresis, maintain on oxygen with wean as tolerated to room air, PRN albuterol, maintained on IV Zosyn and Vancomycin with MRSA screen and de-escalate if appropriate, HOB, IS parameters w/ pending sputum cultures, r espiratory viral culture and urine antigens. Most recent CXR reviewed on patient my chart from and it noted interval improvement of prior overload, thus suspect new findings. Bld cx x 2 obtained in the ED. Procalcitonin requested. BNP requested. If remains until Wednesday may consider Infectious disease consult given recent presentation with prolonged hospitalization, significant ID evaluations with presentation suspected primarily secondary to CA. May need to consider repeat CT chest imaging. PT/OT/CM consultations for discharge planning. #2. Chronic Systolic CHF: From discussion with family very prone to overload, currently upon presentation hypotension, some concern as noted for possible TACO following recent transfusion although patient also has recent cough, O2 requirements and fevers even prior to transfusion, will maintain on statin, not on care or BABAR inhibitor/ARB, will temporarily hold patient oral home Lasix given hypotension but resume once clinically able or if appears to be more fluid overloaded may necessitate IV diuresis regardless. #3. Splenic marginal zone Lymphoma: Patient following w/ Dr. Alvarado, recent 03/10/22 PCP evaluation with baseline labs with WBC elevation to [address] Alvarado with early follow-up with [facility] as had not been seen since 11/2019 as he had been in remission. Will consult oncology especially with recent prolonged admission at [facility] with recurrent fevers following a lengthy infectious disease evaluation suspect primarily secondary to underlying cancer. Mag, Phos requested. #4. Diabetes mellitus type II: Hold oral home regimen, ADA diet, accu checks w/ ISS. #5. CKD stage II: Admission BUN/creatinine 29/1.38, baseline creatinine 1.0-1.1 primarily, will continue to trend. #6. Thrombocytopenia, chronic: Secondary to likely cancer and ongoing treatments, admission platelets 113, prior 101, stable, trend #7. Chronic macrocytic anemia: Admission hemoglobin 9, transfusion on day of presentation as noted, most recent hemoglobin prior to this 03/10/2022 9.1, stable, continue to trend. If patient does require any repeat transfusions given discussion with family would definitely require IV diuresis concurrently. #8. Obesity: Weight loss and lifestyle changes encouraged. #9. GERD w/ Hx gastric ulcer: Will maintain on home PPI. #10. Former cigarette tobacco, current chew tobacco: Encourage chew tobacco cessation. #11. DVT prophylaxis: SCDs, Lovenox. #12. CODE status: Patient REINA is his daughter and living will is currently in place. Discussed CODE status at length including difference between FULL code, DNR-CCA and DNR-CC status. Following discussions about the differences in these status, requested DNR-CCA, no intubation status. Advanced Care Planning Face to Face Time: 16 minutes. Charges/Coding Visit Charges Inpatient E&M: 50287 Init Hosp L3 Procedures Hospitalists Procedures: 83296 Advncd Care Plan 30 Min
[2022-04-18] VITALS (24 sets, daily range): BP systolic 97–146; BP diastolic 60–90; PULSE 84–125; RESP 12–30; TEMP 36.7–37.7; O2SAT 94–100
[2022-04-18 00:41] LABS: Bedside Glucose 145 mg/dL (74-106)
[2022-04-18 01:18] LABS: BNP,B-Type NATRIURETIC PEPTIDE 684.5 pg/mL (0-100)
[2022-04-18 01:21] LABS: Magnesium 1.8 mg/dL (1.6-2.6)
[2022-04-18 01:29] LABS: Procalcitonin 0.72 ng/mL (0.00-0.09)
[2022-04-18 02:16] LABS: Mucous, Urine 0 SEEN /hpf (<or=2+); Red Blood Cells-Urine 0 SEEN /hpf (0-5); White Blood Cells 0 SEEN /hpf (0-5)
--- NOTE | 2022-04-18 02:25 | PCM.RX.CS ---
Consult Pharmacy has been consulted to manage selected antiobiotic: Vancomycin Type of Consult: New start Suspected Infection: Pneumonia Labs: Sodium 136 mmol/L (136-145) 04/17/22 19:50 Potassium 3.7 mmol/L (3.5-5.1) 04/17/22 19:50 Chloride 101 mmol/L (98-107) 04/17/22 19:50 Carbon Dioxide 27.0 mmol/L (21.0-32.0) 04/17/22 19:50 Anion Gap 8 (5-15) 04/17/22 19:50 BUN 29 mg/dL (7-18) H 04/17/22 19:50 Creatinine 1.38 mg/dL (0.70-1.30) H 04/17/22 19:50 Est GFR (MDRD) Af Amer 65 mL/min (>60) 04/17/22 19:50 Est GFR (MDRD) Non-Af 54 mL/min (>60) L 04/17/22 19:50 BUN/Creatinine Ratio 21.0 RATIO (10-20) H 04/17/22 19:50 Glucose 149 mg/dL (74-106) H 04/17/22 19:50 Microbiology: Microbiology 04/17/22 20:30 Nasal Secretion SARS-CoV-2 & FLU Antigen (Rapid) - Final Goal Trough: 15-20 mcg/mL Pharmacy Plan for Drug Dosing: NEW START IV VANCOMYCIN Consulting Physician: Dr. Daley Indication: PNA Goal Trough: 15-20 SrCr: 1.38 CrCl: 54.9mls/min (based off of an adjusted body weight of 80kg) Comments: pt received a 2000mg (25mg/kg) loading dose on 04/18/22 at 0031 Vancomcyin Dose: based on pts weight and renal function, recommend an initial dose of 1000mg q12h starting 04/18/22 at 1300. Trough before the 4th total dose Pending Level: 04/19/22 at 1230 Pharmacy Service will continue to monitor and adjust dosing as required. Follow-Up Labs: Trough Vancomycin - 04/19/22 at 1230
[2022-04-18 02:41] LABS: Color, Urine Yellow (Yellow); Glucose, Dipstick Normal (Normal); Ketone-Dipstick Negative (Negative); Leukocyte Esterase-Dipstick Negative /ul (Negative); Nitrite-Dipstick Negative (Negative); Occult Blood-Urine Negative /ul (Negative); Protein-Dipstick Negative (Negative); Specific Gravity, Urine 1.015 (1.002-1.030); Urine Bilirubin Dipstick Negative (Negative); Urine Clarity Clear (Clear); Urine Urobilinogen Normal (Normal)
[2022-04-18 02:50] LABS: Bacteria 1+ /hpf (None Seen); Squamous Epithelial Cells - UA 0-5 SEEN /hpf (0-5)
[2022-04-18 04:50] LABS: M R Staph aureus DNA By PCR Negative (Negative); Probe Check PASS; Specimen Processing Control PASS
--- NOTE | 2022-04-18 05:46 | NURSING ---
Pt woke up w/ chills and SOB, upon entering room pt 02 was 82% on 2L NC. Pt labored breathing & LS wheezy throughout. 02 bumped to 7L high flow 02 came up to 99% BP 146/88, HR 125, afebrile 98.6F. This RN called RT for breathing tx, notified
[2022-04-18] MEDS: Albuterol 2.5 MG/3 ML VIAL.NEB. INHALATION (05:54)
--- NOTE | 2022-04-18 06:08 | CPS ---
per RN pt woke up SOB, RN placed on HFNC at 7Lpm. pt given PRN Albuterol with no relief, pt in resp distress, placed on BiPAP, pt states he feels better, will continue to monitor
--- NOTE | 2022-04-18 06:22 | NURSING ---
Pt unable to maintain 02 sat, RT switched pt to bipap /, continuous pulse placed. Pt relaxing at this time. in the room to assess pt.
--- NOTE | 2022-04-18 06:38 | PCM.HOSP.N ---
Hospitalist Note Patient awoke per nursing report with sudden onset dyspnea and hypoxia. Reported wheezing therefore respiratory therapy was contacted per nursing staff and aerosol administered. Patient was temporarily placed on BiPAP. Patient evaluated following transition to BiPAP. Patient notes feeling improved. Patient with occasional end expiratory wheeze to posterior lung garcia but otherwise appears similar to his initial presentation with no significant respiratory distress currently noted. We will continue BiPAP and transition off likely shortly.
[2022-04-18 06:45] LABS: Bedside Glucose 148 mg/dL (74-106)
[2022-04-18 07:14] LABS: Absolute Lymphocyte Count 11.96 X10^3/uL (0.83-4.51); Absolute Neutrophil Count 9.9 X10^3/uL (2.0-7.7); Basophil# 0.09 X10^3/uL; Basophil% 0.3 % (0-1); Eosinophil# 0.13 X10^3/uL; Eosinophils% 0.4 % (0-5); Hematocrit 32.6 % (40-54); Hemoglobin 10.2 g/dL (13.0-16.5); Lymphocyte # 11.96 X10^3/ul (0.83-4.51); Mean Corp Hgb Conc 31.3 g/dL (32-36); Mean Corpuscular Hgb 31.1 pg (27.0-32.0); Mean Corpuscular Volume 99.4 fL (80-94); Mean Platelet Vol. 9.6 fl (6.2-12.0); Monocyte# 9.62 X10^3/uL; Monocyte% 29.8 % (0-10); NRBC Flagged by Analyzer 0.1 % (0-5); Neutrophil # 9.85 X10^3/uL (2.7-7.7); Neutrophil % 30.5 % (47-70); POSITIVE COUNT YES; POSITIVE DIFFERENTIAL YES; POSITIVE MORPHOLOGY YES; Platelet Count 107 K/mm3 (150-450); RBC Distribution Width CV 19.4 % (11.6-14.6); RBC Distribution Width SD 68.9 fl (35.1-43.9); Red Blood Count 3.28 M/mm3 (4.6-6.2)
[2022-04-18 07:15] LABS: Differential Indicated SCAN CRITERIA MET
[2022-04-18 07:17] LABS: White Blood Count 32.3 K/mm3 (4.4-11.0)
[2022-04-18 07:24] LABS: ALB/GLOB Ratio 0.7 RATIO (0.9-2.4); AST(SGOT) 73 U/L (15-37); Alanine Aminotransfer ALT/SGPT 48 U/L (16-61); Albumin, Serum 2.8 g/dL (3.2-5.0); Alkaline Phosphatase 164 U/L (45-117); Anion Gap 8 (5-15); BUN 26 mg/dL (7-18); BUN/Creat Ratio 22.4 RATIO (10-20); Calcium,Total 8.4 mg/dL (8.5-10.1); Chloride 101 mmol/L (98-107); Creatinine, Serum 1.16 mg/dL (0.70-1.30); EST Glomerular Filtration Rate 66 mL/min (>60); Est Glom Filt Rate - Afr Amer 79 mL/min (>60); Estimated Creatinine Clearance 53.82 ml/min; Globulin 3.9 g/dL (2.2-4.2); Glucose 151 mg/dL (74-106); Potassium 3.7 mmol/L (3.5-5.1); Protein, Total 6.7 g/dL (6.4-8.2); Sodium Level 136 mmol/L (136-145)
[2022-04-18 07:48] LABS: Atypical Lymphocyte 2+ %; Reactive Lymphocyte 2+
--- NOTE | 2022-04-18 08:57 | CON.PCM.ON_ITS ---
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 -Radiographic evidence of chronic interstitial lung disease with groundglass opacities that had been stable during his hospitalization recently. -Pulmonary hypertension with right heart failure. -Fever several hours following red blood cell transfusion yesterday. -Differential rather broad but possibilities include transfusion related acute lung injury, volume overload, decompensated right heart failure, opportunistic and/or viral infection. Plan: -Continue broad-spectrum antibiotics. -Careful diuresis. -Repeat echocardiogram. -Repeat CT scan of chest. -Consult pulmonary medicine for potential bronchoscopy if no other obvious etiology for the decompensated hypoxemia. -Consider ID consult. HPI Consult Data Date of Service:: 04/18/22 PCP / Referring Provider: Dr. Roe Causey MD Attending: Dr. Kennedi Mccloud MD Chief Complaint Chief Complaint: Splenic marginal zone lymphoma History of Present Illness History of Present Illness: HPI: The patient is a 71-year-old male with past medical history significant for hypertension, DM2 and dyslipidemia. 03/25/18 Urgent Care for urinary tract infection. WBC 32.1, ALC 21.7, Hgb 12.7, plts 158. 04/04/18 Hematology/oncology consult 04/04/18 Monoclonal protein analysis: IgG 1240, IgA 414, IgM 43, kappa 1030, lambda 726. No serum or urine M protein. 04/04/18 Peripheral blood complete blood count, differential, morphology & flow cytometry: WBC 40.64, (N21, L75, M4), Hgb 13.4, plts 167. Most of the lymphocytes are small to intermediate in size with moderate agranular cytoplasm, round nuclei with moderately condensed chromatin and inconspicuous nucleoli. Flow cytometric analysis of the peripheral blood reveals that 74% of total events have the CD45 and side scatter properties of lymphocytes. ?The lymphocytes are composed of a mixture of T-cells (10%; CD4:CD8 ratio = 2.3), NK cells (5%) and B-cells (85%). The B-cells display an abnormal immunophenotype, and express CD19, CD20, CD45, CD79b, FMC7 and monotypic kappa surface immunoglobin light chain. The B-cells are negative for CD5, CD10, CD123, and other tested markers. The findings are diagnostic of involvement by a B-cell lymphoproliferative disorder. The immunophenotype is not specific. The differential diagnosis includes, but is not limited to, marginal zone lymphoma (favored) and lymphoplasmacytic lymphoma. 04/07/18 CT chest, abdomen & pelvis: No adenopathy. Subcentimeter lung nodules and a few areas of groundglass density in the lungs. Splenomegaly with craniocaudal dimension 15 cm. Small left renal cyst. 05/04/18 Bone marrow, aspirate smears, core biopsy & clot section: CD5- negative small B-cell lymphoproliferative disorder (~60% of cellularity). Normocellular marrow (50%) with trilineage hematopoiesis. Decreased storage iron. The immunophenotype is not specific, however given the lack of a monotypic plasma cell population, lymphoplasmacytic lymphoma is unlikely. The morphologic and immunophenotypic features could be consistent with a marginal zone lymphoma; given the patient's splenomegaly, examination of the spleen may provide a more definitive diagnosis. Lymphocytosis composed of small to intermediate sized lymphocytes with oval or slightly irregular nuclear contours, moderate agranular cytoplasm and condensed chromatin. Immunohistochemical stains were performed to assess the lymphocytes. CD20 shows B-cells account for approximately 60% of cellularity. CD3 highlights scattered small T-cells. The B- cells are negative for LEF1 and cyclin?D1. CD138 shows less than 5% plasma cells, which are polytypic by kappa and lambda immunoglobulin light chain staining. Chromosomal analysis: 42-46,X,-Y,-1,t(1;3)(p10;p10),-2,+3,add(3)(p13)x2,-5,-6,-9,add(9)(q34) ,-13,-15,add(17)(p11.2),-19,add(21)(q22),add(22)(q13),+2-5mar[cp11]/46,XY[9] 06/14/18 WBC 30.6, Hgb 10.5, plts 91 06/14/18-08/02/18 Rituximab weekly x8 09/26/18 WBC 10.1 (N73, L18, M7, E1), Hgb 12.4, plts 201 09/29/18-11/24/19 Rituximab every other month x8 11/24/19 WBC 7.5 (N70, L19, M9, E1), Hgb 13.4, plts 213. 10/10/20 WBC 10.3 (N72, L17, M8, B1), Hgb 10.9, plts 306 07/10/21 WBC 8.5, Hgb 13.2, plts 240 February 2022 PCP c/o fatigue & malaise 03/11/22-03/14/22 Hospitalized at [facility] on Lymphoma Myeloma Service 03/11/22 WBC 250.3, (N2, L1, NHL 97), Hgb 8.3, plts 90, reticulocyte 4.6%, albumin 3.8, bilirubin 0., alkaline phosphatase 163, AST 53, ALT 18, creatinine 1.36, uric acid 10.0, LDH 964, PT 10.4, APTT 31.7, fibrinogen 395, d Dimer 1530; HIV 1/2, HCAb, HBsAg, HBsAb, HBcAb - negative. 03/11/22 Electrocardiogram: Sinus tachycardia, complete right bundle branch block & left anterior fasciular block. 03/12/22 CT chest: Mild mediastinal & hilar adenopathy. Diffuse bronchial wall with interlobular septal thickening, groundglass opacities & centrilobular groundglass nodules. 03/12/22 CT abdomen/pelvis: Few shotty para-aortic retroperitoneal lymph nodes. Splenomegaly with craniocaudal length of 18 cm. 03/13/22 Bone marrow aspirate smear & core biopsy with clot section: hypercellular marrow involved by CD19+, CD20+ (bright), kappa+, CD5- low-grade small B-cell lymphoma (involving 70% of the marrow cellularity) consistent with splenic marginal zone lymphoma. 03/13/22 Bone marrow chromosomal analysis: 43-46,XY,-1[10],misha(1; 3)(p10;p10)[10],-2[13],+3[13],add(3)(p13)x2[13],-5[13],-6[13],-9[11],add(9)(q34) [12],-15[13],add(17)(p11.2) [13],add(21)(q22)[13],-22[11],add(22)(q13)[13],+2-7mar[cp13]/46,XY[7]. The changes are similar to those noted in a previous study from April 2018 and provide cytogenetic evidence for persistent disease. 03/13/22 Bone marrow FISH for aggressive B-cell lymphoma: MYC, BCL2 and/or BCL6 rearrangements are not identified. 03/13/22 Echocardiogram: The left ventricle is normal in size. Left ventricular systolic function is normal. EF = 57 ? 5% (2D biplane) Grade I left ventricular diastolic dysfunction. The right ventricle is dilated. Right ventricular systolic function is low normal. Unclear etiology/mechanism. Tricuspid aortic valve. There is moderate aortic valve stenosis caused by calcified valve. AV area is 1.01 cm? (0.46 cm?/m?) by continuity, VTI. The peak gradient is 24 mmHg, the mean gradient is 14 mmHg and the dimensionless valve index is 0.29. Mild . Estimated right ventricular systolic pressure is 56 mmHg consistent with moderate pulmonary hypertension. Estimated right atrial pressure is 8 mmHg based on IVC assessment. 03/14/22 WBC 201.4, (N11, L8, M2, B1, NHL 78), Hgb 7.7, plats 75, albmuin 3.3, biliruin 0.9, alk phos 137, AST 72, ALT 19, creatinine 1.11, 03/14/22 Discharged on levofloxacin 500 mg daily x7. 03/18/22 WBC 262.9, (N4, L1, M1, NHL94), Hgb 8.6, plts 82, albumin 3.7, bilirubin 0.7, alk phos 174, AST56, AL16, creatinine 1.03, LDH 972, uric acid 7.2 Admitted 03/26 through 04/10 main campus for initiation chemotherapy and monitoring/treatment for tumor lysis. Complicated by: Pneumonia 04/07/2022 Unknown ? ? 04/02/2022: CT Chest: IMPRESSION: 1. New dependent moderate size bilateral pleural effusions with partial atelectasis of bilateral lower lobes. 2. Waxing and waning nodular opacities in both lungs, possibly infectious or inflammatory in nature. On oxygen and Zosyn, Zosyn d/luis armando 04/06 but spiked fever and started again in the evening 04/06 BC pending 04/07: CT Chest grossly unchanged ? Pulmonary HTN (HCC) 04/01/2022 Unknown ? ? - Moderate pulmonary HTN seen on last echo from 03/13/2022 - Etiology unclear at this time as patient without chronic lung disease, left- sided heart disease, or thromboembolic disease - Evidence of right heart dilation and systolic dysfunction on most recent echo which could explain the elevated troponin and NTproBNP here - Repeat echo from 03/27, again showed RV dilation, and estimated RVSP of 51 mmHg, unchanged from 03/13 Echo On 4L NC Was seen by ID. Impression was low grade fevers not due to infection. Received 2 unit RBC transfusion yesterday as outpatient. Lasix 20 mg IV between units. Was brought to the ED last evening by squad for increasing dyspnea and low-grade fever. Chest x-ray suggested possible bilateral infiltrative process. Patient was started on broad-spectrum antibiotics and admitted. Advanced Directives Power of Wrapper And Preserver: Yes Living Will: No PFSH Medical History (Updated 04/17/22 @ 22:[address] Kamar Vargas MD) Arthritis Cough Diabetes GERD (gastroesophageal reflux disease) Hearing loss Hypertension Lymphoma, marginal zone, spleen Stomach ulcer Home Medications cinnamon bark 500 mg capsule 500 mg PO BID cap 08/12/18 [History Last Taken 04/17/22] colby (Zingiber officinalis) 550 mg capsule 550 mg PO BID cap 08/12/18 [History Last Taken 04/17/22] turmeric root extract 500 mg capsule 500 mg PO BID 08/12/18 [History Last Taken 04/17/22] curaliam PO BID 12/05/20 [History Last Taken 04/17/22] blood sugar diagnostic #50 ea 03/10/22 [Rx Last Taken Unknown] blood-glucose meter #1 ea 03/10/22 [Rx Last Taken Unknown] lancets 28 gauge #50 ea 03/10/22 [Rx Last Taken Unknown] allopurinol 100 mg PO DAILY 04/17/22 [History Last Taken 04/17/22] furosemide 40 mg PO BID 04/17/22 [History Last Taken 04/17/22] glipizide 2.5 mg PO BID 04/17/22 [History Last Taken 04/17/22] lansoprazole 30 mg PO DAILY PRN 04/17/22 [History Last Taken 04/17/22] metformin 1,000 mg PO BID 04/17/22 [History Last Taken 04/17/22] potassium chloride 20 meq PO BID 04/17/22 [History Last Taken 04/17/22] simvastatin 10 mg PO QHS 04/17/22 [History Last Taken 04/16/22] wheelchair #1 ea 04/17/22 [Rx Last Taken Unknown] Allergy/AdvReac Type Severity Reaction Status Date / Time No Known Allergies Allergy Unverified 03/10/22 14:32 Family History Father Arthritis Myocardial infarction, Onset Age: 72 Heart disease Hypertension CVA (cerebral vascular accident) Mother Arthritis Diabetes Hypertension Heart disease Surgical History (Updated 04/17/22 @ 23:[address] Khadra Daley MD) History of orthopedic surgery Hx of cataract extraction Social History (Updated 04/17/22 @ 23:[address] Khadra Daley MD) household members: none Smoking Status: Former smoker Tobacco: How many years used: 20 Smokeless tobacco user: chewing tobacco how long ago did patient quit smoking: Quit cigarette tobacco 1981, still using chew tobacco. alcohol intake: never substance use type: does not use what type of physical activity do you participate in: none Vital Signs Temperature 99.1 F 04/18/22 08:29 Temperature Source Temporal 04/18/22 08:29 Pulse Rate 114 H 04/18/22 08:29 Respiratory Rate 28 H 04/18/22 08:29 Respiratory Effort Non-Labored 04/18/22 08:31 Respiratory Depth Shallow 04/18/22 08:31 Respiratory Pattern Tachypnea 04/18/22 08:31 Blood Pressure 107/90 H 04/18/22 08:29 Blood Pressure Mean 95 04/18/22 08:29 Blood Pressure Source Monitor 04/18/22 08:29 Blood Pressure Position Semi-Fowlers 04/18/22 08:29 Blood Pressure Location Left Arm 04/18/22 08:29 Pulse Ox 100 04/18/22 08:29 Oxygen Delivery Method Bi-pap 04/18/22 08:31 Oxygen Flow Rate (L/min) 35 04/18/22 07:08 Fraction of Inspired Oxygen (FIO2) 35 04/18/22 08:31 Laboratory Results - last 24 hr 04/17/22 02:00: Urine Color Yellow, Urine Clarity Clear, Urine pH 5.0, Ur Specific [place] 1.015, Urine Protein Negative, Urine Glucose (UA) Normal, Urine Ketones Negative, Urine Occult Blood Negative, Urine Nitrite Negative, Urine Bilirubin Negative, Urine Urobilinogen Normal, Ur Leukocyte Esterase Negative, Urine RBC 0 SEEN, Urine WBC 0 SEEN, Ur Squamous Epith Cells 0-5 SEEN, Urine Bacteria 1+, Urine Mucus 0 SEEN 04/17/22 19:50: WBC 26.1 H, RBC 2.94 L, Hgb 9.0 L, Hct 28.5 L, MCV 96.9 H, MCH 30.6, MCHC 31.6 L, RDW Std Deviation 65.4 H, RDW Coeff of Liliana 18.9 H, Plt Count 113 L, MPV 9.6, Immature Gran % (Auto) 2.500 H, Neut % (Auto) 28.6 L, Lymph % (Auto) 28.6, Burt % (Auto) 39.7 H, Eos % (Auto) 0.3, Baso % (Auto) 0.3, Absolute Neuts (auto) 7.5, Absolute Lymphs (auto) 7.46 H, Nucleated RBC % 0.2, Differential Comment SEE COMMENTS, Diff Path Review May foll, Atypical Lymphocytes 1+, Platelet Estimate SLT DEC, RBC Morphology N CHROM, Anisocytosis 1+, Macrocytosis 1+ 04/17/22 19:50: PT 14.2, INR 1.1, APTT 37.9 H 04/17/22 19:50: Sodium 136, Potassium 3.7, Chloride 101, Carbon Dioxide 27.0, Anion Gap 8, BUN 29 H, Creatinine 1.38 H, Estim Creat Clear Calc 45.24, Est GFR (MDRD) Af Amer 65, Est GFR (MDRD) Non-Af 54 L, BUN/Creatinine Ratio 21.0 H, Glucose 149 H, Calcium 8.4 L, Total Bilirubin 1.00, AST 77 H, ALT 48, Alkaline Phosphatase 156 H, Total Protein 6.0 L, Albumin 2.5 L, Globulin 3.5, Albumin/Globulin Ratio 0.7 L 04/17/22 19:50: Lactic Acid Cancelled 04/17/22 19:50: Magnesium 1.8 04/17/22 19:50: B-Natriuretic Peptide 684.5 H 04/17/22 20:58: Lactic Acid 1.4 04/17/22 23:39: Procalcitonin 0.72 H 04/18/22 00:17: POC Glucose 145 H 04/18/22 00:20: MRSA (PCR) Negative 04/18/22 06:26: POC Glucose 148 H 04/18/22 06:33: WBC 32.3 H*, RBC 3.28 L, Hgb 10.2 L, Hct 32.6 L, MCV 99.4 H, MCH 31.1, MCHC 31.3 L, RDW Std Deviation 68.9 H, RDW Coeff of Liliana 19.4 H, Plt Count 107 L, MPV 9.6, Immature Gran % (Auto) 2.000 H, Neut % (Auto) 30.5 L, Lymph % (Auto) 37.0, Burt % (Auto) 29.8 H, Eos % (Auto) 0.4, Baso % (Auto) 0.3, Absolute Neuts (auto) 9.9 H, Absolute Lymphs (auto) 11.96 H, Nucleated RBC % 0.1, Diff Path Review March, Atypical Lymphocytes 2+, Reactive Lymphocytes 2+ 04/18/22 06:33: Sodium 136, Potassium 3.7, Chloride 101, Carbon Dioxide 27.0, Anion Gap 8, BUN 26 H, Creatinine 1.16, Estim Creat Clear Calc 53.82, Est GFR (MDRD) Af Amer 79, Est GFR (MDRD) Non-Af 66, BUN/Creatinine Ratio 22.4 H, Glucose 151 H, Calcium 8.4 L, Total Bilirubin 0.80, AST 73 H, ALT 48, Alkaline Phosphatase 164 H, Total Protein 6.7, Albumin 2.8 L, Globulin 3.9, Albumin/Globulin Ratio 0.7 L Microbiology 04/18/22 00:12 Mucosa - Nose Respiratory Panel (PCR) - Final 04/17/22 02:00 Urine, Clean Catch Legionella Antigen - Final 04/17/22 02:00 Urine, Clean Catch Streptococcus pneumoniae Antigen (M - Final 04/17/22 20:30 Nasal Secretion SARS-CoV-2 & FLU Antigen (Rapid) - Final Diagnostic Data Chest X-Ray 04/17/22 20:15 IMPRESSION: Findings consistent with infection versus pulmonary edema including noncardiogenic pulmonary edema which may be transfusion related. Electronically Signed: Christophe Vargas MD at 20:31 EDT ,
[2022-04-18] MEDS: Enoxaparin 40 MG/0.4 ML Syringe SC (09:48)
[2022-04-18] MEDS: Pantoprazole Sodium 40 MG Tablet PO (09:48)
[2022-04-18] MEDS: Allopurinol 100 MG Tablet PO (09:48)
--- NOTE | 2022-04-18 10:28 | CT_ITS ---
STUDY: CTA CHEST REASON FOR EXAM: Male, 71 years old. Shortness of breath. INTERSITIAL LUNG DISEASE RADIATION DOSAGE (If Supplied By Facility): CTDIvol = ( 13.84 ) mGy, DLP = ( 567.90 ) mGycm TECHNIQUE: The examination was performed with the intravenous administration of IV 75mL [id number]-370. Post-processing of the angiographic images was performed, with multiplanar reformation and 3D reconstruction. Individualized dose optimization techniques were used for this CT. COMPARISON: None. FINDINGS: There are bilateral pleural effusions associated with dependent consolidation within the lower lobes. There are groundglass opacities throughout the lungs. Normal enhancement of the main pulmonary artery and right and left pulmonary arteries. Normal enhancement of the bilateral peripheral pulmonary arteries. There is no demonstrated pulmonary embolism. There is atherosclerotic calcification of the aortic arch. There is no demonstrated aortic dissection. There are calcifications of the coronary arteries. Normal mediastinum. Normal hilar regions. Normal visualized trachea and bronchi. Normal chest wall structures. There are degenerative changes of thoracic spine. The limited images of the upper abdomen demonstrate splenomegaly. CT/CTA Chest W/WO Contrast IMPRESSION: No demonstrated pulmonary embolism or arterial dissection. Bilateral pleural effusions associated with dependent consolidation within the lower lobes. Bilateral groundglass opacities, a nonspecific finding may be secondary to edema and or an infectious process. Atherosclerosis. Splenomegaly. Electronically Signed: Justa Bunn MD at 11:37 EDT ,
--- NOTE | 2022-04-18 10:28 | ECHOCS_ITS ---
Reason For Study: Rt Heart Failure Procedure This was a 2D Doppler, Color Flow transthoracic echocardiogram. Contrast injection was performed. Exam performed portable in patient room. Left Ventricle Normal LV size. The estimated ejection fraction is 50 %. [place] : Hypokinetic. Mid-Anterior : Mildly hypokinetic. Right Ventricle Normal RV size. Normal systolic function. Atria Normal left atrium. Normal right atrium. Mitral Valve There is mild to moderate mitral annular calcification. Mild (1+) eccentric mitral valve insufficiency. Tricuspid Valve Normal tricuspid valve. Mild to moderate (1-2+) tricuspid valve insufficiency. Pulmonary artery systolic pressure is 54 mmHg. Aortic Valve Trisinus/trileaflet aortic valve. Moderate focal aortic valve calcification. Peak aortic valve gradient 30 mmHg. Mean aortic valve gradient 17 mmHg. Mild aortic stenosis. Pulmonic Valve Normal pulmonic valve. Great Vessels Normal aortic root. The pulmonary artery is normal size. Normal inferior vena cava. Pericardium/Pleural No pericardial effusion. Medication Diluted definity 4ml given slow IV push to enhance endocardial definition. MMode/2D Measurements & Calculations LVIDd: 5.3 cm IVSd: 1.0 cm LVOT diam: 2.1 cm LVIDs: 3.7 cm LVPWd: 0.81 cm RVDd: 4.7 cm FS: 29.3 % LVOT area: 3.3 cm2 Ao root diam: 2.8 cm LAV(MOD-bp): 58.1 ml LA A4 area: 21.7 cm2 LAV(MOD-bp) Indexed: 27.2 ml/m2 LAV(MOD-sp2): 40.7 ml LAV(MOD-sp4): 66.0 ml LA dimension(2D): 3.9 cm RA A4 area: 12.5 cm2 Doppler Measurements & Calculations MV E max praveen: 118.1 cm/sec Lat Peak E' Praveen: 9.4 cm/sec Med Peak E' Praveen: 6.5 cm/sec MV A max praveen: 96.1 cm/sec E/E' lat: 12.5 E/E' med: 18.3 MV E/A: 1.2 Ao V2 max: 274.8 cm/sec LV V1 max: 97.3 cm/sec SV(LVOT): 60.6 ml Ao max P.2 mmHg LV V1 max P.8 mmHg Ao V2 mean: 195.7 cm/sec LV V1 mean P.2 mmHg Ao mean P.8 mmHg LV V1 mean: 71.0 cm/sec Ao V2 VTI: 47.1 cm LV V1 VTI: 18.1 cm MAUREEN(I,D): 1.3 cm2 MAUREEN(V,D): 1.2 cm2 PA V2 max: 119.9 cm/sec TR max praveen: 349.4 cm/sec TR max P.8 mmHg ECHO/Echo Complete W/ Contrast Interpretation Summary Normal LV size. The estimated ejection fraction is 50 %. [place] : Hypokinetic. Peak aortic valve gradient 30 mmHg. Mean aortic valve gradient 17 mmHg. Mild aortic stenosis. Pulmonary artery systolic pressure is 54 mmHg. Contrast injection was performed. Ordering Physician: Kennedi Mccloud Referring Physician: Roe Causey Performed By: Arabella Cortez RDCS, RVT
--- NOTE | 2022-04-18 11:48 | PN.HOSP_ITS ---
Subjective Subjective Patient seen and examined. He was on BIPAP. He had no active complaints. He felt likel his breathing had improved a bit, though he remained on BIPAP. He denied any chest pain, palpitations, dizziness, nausea vomiting. Review of systems otherwise negative. I spoke to his driller and broacher today who told me that patient had been found to have elevated right ventricular systolic pressure. Previous echo done and there was concern for right heart failure. Per echo done on 03/13/2022, EF was 57% with stage I diastolic dysfunction and dilated right ventricle with right ventricular systolic pressure of 56 mmHg. Objective Data Objective Data Vital Signs: Vital Signs Temp Pulse Resp BP Pulse Ox 98.1 F 101 H 24 H 105/63 97 04/18/22 11:30 04/18/22 11:30 04/18/22 11:30 04/18/22 11:30 04/18/22 11:30 Oxygen Flow Rate (L/min) 6 Oxygen Delivery Method High Flow Weight: 223 lb 12.307 oz Body Mass Index (BMI) 35.0 Intake & Output: Intake and Output for Last 24 Hours 04/16/22 04/17/22 04/18/22 23:59 23:59 23:59 Intake Total 1305 / 1305 590 / 590 Output Total 0 / 0 300 / 300 Balance 1305 / 1305 290 / 290 Medical Nutrition Assessment Dietitian: Malnutrition Criteria Met Start: 04/18/22 11:41 Freq: Status: Active Protocol: Document 04/18/22 11:42 CLARISSA (Rec: 04/18/22 11:43 [facility] [id number]) Nutrition Malnutrition Evidence of Malnutrition Exists Yes Malnutrition (severe): Acute Illness/Injury Evidenced By Suboptimal Energy Intake ( Severe),Weight Loss (Severe) Clinical Problem Acute Disease or Injury Related Malnutrition Etiology related to recent chemo tx and pt with poor po intake making it difficult to consume adequate nutrition to meet est nutritional needs Signs/Symptoms as evidenced by <50% po intake and 3.2% wt loss x past 2 wks when pt had chemo tx. Status Active Problem Recommendation Dietitian Recommendations/Changes Will liberalize diet to Consistent CHO d/t signs and symptoms of malnutrition Will order 120 ml glucerna shake 4x/day w/ medpass for increased nutrition if consumed. Lab / Micro Data Result Diagrams: 04/18/22 06:33 04/18/22 06:33 Labs: Laboratory Results - last 24 hr 04/17/22 02:00: Urine Color Yellow, Urine Clarity Clear, Urine pH 5.0, Ur Specific [place] 1.015, Urine Protein Negative, Urine Glucose (UA) Normal, Urine Ketones Negative, Urine Occult Blood Negative, Urine Nitrite Negative, Urine Bilirubin Negative, Urine Urobilinogen Normal, Ur Leukocyte Esterase Negative, Urine RBC 0 SEEN, Urine WBC 0 SEEN, Ur Squamous Epith Cells 0-5 SEEN, Urine Bacteria 1+, Urine Mucus 0 SEEN 04/17/22 19:50: WBC 26.1 H, RBC 2.94 L, Hgb 9.0 L, Hct 28.5 L, MCV 96.9 H, MCH 30.6, MCHC 31.6 L, RDW Std Deviation 65.4 H, RDW Coeff of Liliana 18.9 H, Plt Count 113 L, MPV 9.6, Immature Gran % (Auto) 2.500 H, Neut % (Auto) 28.6 L, Lymph % (Auto) 28.6, [place] % (Auto) 39.7 H, Eos % (Auto) 0.3, Baso % (Auto) 0.3, Absolute Neuts (auto) 7.5, Absolute Lymphs (auto) 7.46 H, Nucleated RBC % 0.2, Differential Comment SEE COMMENTS, Diff Path Review May foll, Atypical Lym phocytes 1+, Platelet Estimate SLT DEC, RBC Morphology N CHROM, Anisocytosis 1+, Macrocytosis 1+ 04/17/22 19:50: PT 14.2, INR 1.1, APTT 37.9 H 04/17/22 19:50: Sodium 136, Potassium 3.7, Chloride 101, Carbon Dioxide 27.0, Anion Gap 8, BUN 29 H, Creatinine 1.38 H, Estim Creat Clear Calc 45.24, Est GFR (MDRD) Af Amer 65, Est GFR (MDRD) Non-Af 54 L, BUN/Creatinine Ratio 21.0 H, Glucose 149 H, Calcium 8.4 L, Total Bilirubin 1.00, AST 77 H, ALT 48, Alkaline Phosphatase 156 H, Total Protein 6.0 L, Albumin 2.5 L, Globulin 3.5, Albumin/Globulin Ratio 0.7 L 04/17/22 19:50: Lactic Acid Cancelled 04/17/22 19:50: Magnesium 1.8 04/17/22 19:50: B-Natriuretic Peptide 684.5 H 04/17/22 20:58: Lactic Acid 1.4 04/17/22 23:39: Procalcitonin 0.72 H 04/18/22 00:17: POC Glucose 145 H 04/18/22 00:20: MRSA (PCR) Negative 04/18/22 06:26: POC Glucose 148 H 04/18/22 06:33: WBC 32.3 H*, RBC 3.28 L, Hgb 10.2 L, Hct 32.6 L, MCV 99.4 H, MCH 31.1, MCHC 31.3 L, RDW Std Deviation 68.9 H, RDW Coeff of Liliana 19.4 H, Plt Count 107 L, MPV 9.6, Immature Gran % (Auto) 2.000 H, Neut % (Auto) 30.5 L, Lymph % (Auto) 37.0, [place] % (Auto) 29.8 H, Eos % (Auto) 0.4, Baso % (Auto) 0.3, Absolute Neuts (auto) 9.9 H, Absolute Lymphs (auto) 11.96 H, Nucleated RBC % 0.1, Diff Path Review May foll, Atypical Lymphocytes 2+, Reactive Lymphocytes 2+ 04/18/22 06:33: Sodium 136, Potassium 3.7, Chloride 101, Carbon Dioxide 27.0, Anion Gap 8, BUN 26 H, Creatinine 1.16, Estim Creat Clear Calc 53.82, Est GFR (MDRD) Af Amer 79, Est GFR (MDRD) Non-Af 66, BUN/Creatinine Ratio 22.4 H, Glucose 151 H, Calcium 8.4 L, Total Bilirubin 0.80, AST 73 H, ALT 48, Alkaline Phosphatase 164 H, Total Protein 6.7, Albumin 2.8 L, Globulin 3.9, Albumin/Globulin Ratio 0.7 L Micro: Microbiology 04/18/22 00:12 Mucosa - Nose Respiratory Panel (PCR) - Final 04/17/22 02:00 Urine, Clean Catch Legionella Antigen - Final 04/17/22 02:00 Urine, Clean Catch Streptococcus pneumoniae Antigen (M - Final 04/17/22 20:30 Nasal Secretion SARS-CoV-2 & FLU Antigen (Rapid) - Final Radiography Diagnostic Testing: Radiology Impression Chest X-Ray 04/17/22 20:15 IMPRESSION: Findings consistent with infection versus pulmonary edema including noncardiogenic pulmonary edema which may be transfusion related. Electronically Signed: Christophe Vargas MD at 20:31 EDT , Chest CTA 04/18/22 10:28 IMPRESSION: No demonstrated pulmonary embolism or arterial dissection. Bilateral pleural effusions associated with dependent consolidation within the lower lobes. Bilateral groundglass opacities, a nonspecific finding may be secondary to edema and or an infectious process. Atherosclerosis. Splenomegaly. Electronically Signed: Justa Bunn MD at 11:37 EDT , Physical Exam Const alert and oriented x3 Orientation / Consciousness: lethargic Exam Limitations: no limitations HEENT head/scalp atraumatic and moist oral mucous membranes Head and Scalp: normocephalic Eyes PERRL, EOMs intact bilaterally and conjunctivae normal Neck no lymphadenopathy Resp Resp Narrative: mildly diminished breath sounds bibasally, few bilateral c rackles. On BIPAP GI normal to inspection, nondistended, normoactive bowel sounds, soft to palpation, non-tender and non-distended Extremity normal to inspection, full ROM and no clubbing, cyanosis or edema Peripheral Pulses: Yes pulses 2+ throughout Skin no rashes or lesions noted Neuro oriented x3 and moves all extremities Sensorium / Orientation: awake and alert Psych affect normal Assessment & Plan Assessment/Plan (1) Bilateral interstitial pneumonia: (2) Acute and chronic respiratory failure with hypoxia: PLAN: #Acute on chronic hypoxic respiratory failure * due to bilateral pneumonia. * CXR showed findings consistent with infection vs pulmonary edema * per his oncologst, there was concern for right heart failure based on 2D echo fro February 2022 which showed RVSp of 56mmhg. * will order repeat [address] chest * will start on IV lasix 40mg bid * consult pulmonology * continue IV zosyn * sputum and blood cultures pending * on BIPAP. Titrate oxygen to maintain sats >90% * wean off BIPAP as tolerated * of note, he did have fever after he was transfused with 2 units of PRBCs. There is a question of this was due to infection or a tranfusion related infection * #Splenic lymphoma * oncology on board * was recently admitted at [facility] * follow up with oncology on outpatient basis * #CHronid HFpEF * EF from 2D echo in February 2022 was 57%, with grade 1 left ventricular diastolic dysfunction and dilated RV, with moderate aortic stenosis * in light of imaging findings of pulmonary edema, will place on IV furosemide 40mg bid * monitor intake and output * fluid restriction to 1500cc daily * #Type 2 diabetes mellitus: Oral meds on hold. Insulin sliding scale. Accu- Cheks ACH S. #GERD with history of gastric ulcer: On PPI #Thrombocytopenia * Platelets are 107. * This likely related to lymphoma. * Currently on Lovenox. * Will monitor platelets and if it drops some more, will DC Lovenox. #DVT prophylaxis: Lovenox CODE STATUS: DNR CCA no intubation * Charges/Coding Visit Charges Inpatient E&M: 26870 Subs Hosp L3
[2022-04-18 11:50] LABS: Bedside Glucose 160 mg/dL (74-106)
[2022-04-18] MEDS: Insulin Lispro 100 UNIT/ML INSULN.PEN SC ×3 (12:03→20:54)
--- NOTE | 2022-04-18 12:10 | CASEMGMT ---
SANGEETHA FAM assessment: Face to Face with patient for initial transition planning/care coordination assessment. SANGEETHA FAM introduced self and role at [facility], pt voices understanding and consents to assessment. Pt is sitting up in bed in no distress on 6L nc. Pt is A/Ox4 and answers all questions appropriately. Pt's daughters are at bedside during assessment. Care providers, pharmacy, and demographics verified. Presentation: Pt has had generalized weakness, febrile-had blood transfusion today-low BP in squad Admitting dx: Hypoxia, Bilat pna PCP: Marium/Alberto Specialists: taina Alvarado Pharmacy: [facility] Insurance: [facility] A/B Prescription Benefit: Self pay-uses GoodRx Living Will/HPOA: Pt has LW/HPOA and is aware they are not on file at [facility]. Pt's daughter is HPOA. LNOK: Tabatha Padilla, daughter; Joyce Daly, daughter Living Arrangements: Pt lives with daughterAnabell, in 1 story home with 4 steps in and states no concerns at home. Pt is independent with ADL's. Transportation: Pt's daughters drive and states no transportation concerns. DME/HHC: Pt has the following DME: WW, grab bars, bench in shower, and 2-3L home oxygen thru [employer]. CM to follow for increased home oxygen need. Pt states no hx SNF and is [facility], MAT order placed. Pt/daughters state no concerns with pt going home at time of discharge. Pt is retired. Pt does not smoke cigarettes or drink ETOH but does chew tobacco. Pt voices no further concerns/needs. CM to follow for any further discharge planning/needs. Advised pt to ask for CM if any further questions/concerns/needs arise, voices understanding. Pt Goal: Home Plan: [place] SANGEETHA FAM
[2022-04-18] MEDS: Furosemide 40 MG/4 ML Vial IV ×2 (13:27→17:02)
[2022-04-18] MEDS: 0.9% Saline Lock 10 ML Syringe IV ×2 (13:28→20:55)
[2022-04-18 16:26] LABS: Bedside Glucose 233 mg/dL (74-106)
[2022-04-18] MEDS: Acetaminophen 325 MG Tablet 650 MG PO (18:21)
[2022-04-18] MEDS: Atorvastatin Calcium 10 MG Tablet 5 MG PO (20:57)
[2022-04-18 21:41] LABS: Bedside Glucose 264 mg/dL (74-106)
[2022-04-19] VITALS (18 sets, daily range): BP systolic 100–115; BP diastolic 57–70; PULSE 69–108; RESP 12–28; TEMP 36.6–38.7; O2SAT 92–99
[2022-04-19] MEDS: 0.9% Saline Lock 10 ML Syringe IV ×3 (06:06→18:26)
[2022-04-19 06:41] LABS: Bedside Glucose 131 mg/dL (74-106)
--- NOTE | 2022-04-19 06:42 | EX.PCM.CONCC ---
Assessment & Plan Assessment/Plan (1) Acute and chronic respiratory failure with hypoxia: PLAN: RECOMMENDATIONS: 1. Continue to wean supplemental oxygen to maintain saturations at or above 90%. 2. Continue diuresis as tolerated by hemodynamics and renal function. 3. Encourage incentive spirometer use and mobilize patient as tolerated. 4. Continue empiric antimicrobials. IMPRESSIONS: 1. Acute on chronic hypoxemic respiratory failure The patient initially presented to the hospital with dyspnea and low-grade fever following transfusion of blood products on an outpatient basis. The patient has a history of aggressive B-cell lymphoma and was recently started on chemotherapy. Chest imaging did demonstrate bilateral groundglass opacities and pleural effusions. The patient has a known history of pulmonary hypertension based upon recent echocardiogram. Therefore, it is certainly possible that the patient's presenting symptoms could have been either transfusion related acute lung injury or transfusion associated circulatory overload. Alternatively, an acute pulmonary infectious process is also a possibility. The patient has been managed with diuretic therapy and appears to be improving from a respiratory perspective. In this particular setting, given his response to diuretics, it seems more likely that the patient may have experienced TACO as opposed to TRALI. I would plan to continue to diurese him as tolerated by hemodynamics and renal function. Continue empiric antimicrobials, pending finalized culture results. 2. Heart failure with preserved ejection fraction/pulmonary hypertension Plan to continue diuresis as tolerated by hemodynamics and renal function. It is unclear to me what type of secondary work-up for his pulmonary hypertension has been completed already on an outpatient basis. 3. Lymphoma/diabetes mellitus/GERD/hyperlipidemia Complicates care, management, recovery and prognosis. Continue home medications as indicated. This note was generated with [employer] dictation software. It may contain incorrect words, spelling, and punctuation that were not noted in checking the note before signing. HPI Consult Data Date of Consult: 04/19/22 HPI Narrative Reason for Consultation: Acute respiratory failure, pulmonary hypertension HPI Narrative: The patient is a 71-year-old male, with a history as outlined below, who presented to the emergency department on April 17 after he developed fevers and shortness of breath approximately 1 hour after receiving a transfusion of packed red blood cells. The patient was recently admitted to [facility] March 26 for initiation of chemotherapy and monitoring for tumor lysis syndrome in the setting of a diagnosis of aggressive B-cell lymphoma. Outside echocardiogram from February 2019 demonstrated normal LV size and function with an ejection fraction of 57% and grade 1 diastolic dysfunction. The RV was noted to be dilated with normal RV systolic function. Moderate aortic valve stenosis was noted along with a right ventricular systolic pressure of 56 mmHg. The day of his presentation to the hospital, the patient received 2 units of packed red blood cells with Lasix in between the units. He subsequently went on to develop dyspnea and a low-grade fever. On presentation to the emergency department, the patient was noted to be afebrile and hemodynamically stable. Laboratory evaluation revealed a white blood cell count of 26,000. Platelet count was low at 113,000. Chemistry profile was notable for a creatinine of 1.38. BNP was elevated at 684. Urinalysis was unremarkable. MRSA screen was negative. Rapid COVID and flu were negative. Respiratory viral panel was negative. CTA chest demonstrated diffuse bilateral groundglass along with bilateral pleural effusions. A repeat echocardiogram was completed on April 18 and demonstrated an ejection fraction of 50% with a pulmonary artery systolic pressure estimated to be 54 mmHg. The patient was initially started on empiric antimicrobial therapy. The patient was evaluated by his oncology team over concerns for potential TRALI vs TACO vs acute pulmonary infectious process. The patient has been managed with IV diuretic therapy. He is currently maintaining appropriate oxygen saturations on 4 L/min via nasal cannula. The patient has had a few low-grade fevers documented over the last several days but is currently afebrile. He denies any resting shortness of breath. He does report a chronic nonproductive cough. He apparently utilizes 2 L/min of supplemental oxygen at his baseline. [facility] Medical History (Updated 04/17/22 @ 22:[address] Kamar Vargas MD) Arthritis Cough Diabetes GERD (gastroesophageal reflux disease) Hearing loss Hypertension Lymphoma, marginal zone, spleen Stomach ulcer Home Medications cinnamon bark 500 mg capsule 500 mg PO BID cap 08/12/18 [History Last Taken 04/17/22] colby (Zingiber officinalis) 550 mg capsule 550 mg PO BID cap 08/12/18 [History Last Taken 04/17/22] turmeric root extract 500 mg capsule 500 mg PO BID 08/12/18 [History Last Taken 04/17/22] curaliam PO BID 12/05/20 [History Last Taken 04/17/22] blood sugar diagnostic #50 ea 03/10/22 [Rx Last Taken Unknown] blood-glucose meter #1 ea 03/10/22 [Rx Last Taken Unknown] lancets 28 gauge #50 ea 03/10/22 [Rx Last Taken Unknown] allopurinol 100 mg PO DAILY 04/17/22 [History Last Taken 04/17/22] furosemide 40 mg PO BID 04/17/22 [History Last Taken 04/17/22] glipizide 2.5 mg PO BID 04/17/22 [History Last Taken 04/17/22] lansoprazole 30 mg PO DAILY PRN 04/17/22 [History Last Taken 04/17/22] metformin 1,000 mg PO BID 04/17/22 [History Last Taken 04/17/22] potassium chloride 20 meq PO BID 04/17/22 [History Last Taken 04/17/22] simvastatin 10 mg PO QHS 04/17/22 [History Last Taken 04/16/22] wheelchair #1 ea 04/17/22 [Rx Last Taken Unknown] Allergy/AdvReac Type Severity Reaction Status Date / Time No Known Allergies Allergy Unverified 03/10/22 14:32 Family History Father Arthritis Myocardial infarction, Onset Age: 72 Heart disease Hypertension CVA (cerebral vascular accident) Mother Arthritis Diabetes Hypertension Heart disease Surgical History (Updated 04/17/22 @ 23:[address] Khadra Daley MD) History of orthopedic surgery Hx of cataract extraction Social History (Updated 04/17/22 @ 23:[address] Khadra Dlaey MD) household members: none Smoking Status: Former smoker Tobacco: How many years used: 20 Smokeless tobacco user: chewing tobacco how long ago did patient quit smoking: Quit cigarette tobacco 1981, still using chew tobacco. alcohol intake: never substance use type: does not use what type of physical activity do you participate in: none ROS Constitutional Constitutional: Reports chills, fatigue and fever(s) Eyes Eyes: Denies blurry vision or change in vision ENT HEENT: Denies dizziness, dysphagia, epistaxis or headache(s) Cardiovascular Cardiovascular: Reports dyspnea Respiratory/Chest Respiratory/Chest: Reports cough and dyspnea Gastrointestinal Gastrointestinal: Denies abdominal pain, diarrhea, nausea or vomiting Genitourinary Genitourinary: Denies difficulty urinating Musculoskeletal Musculoskeletal: Denies arthralgias, back pain or joint pain Integumentary Integumentary: Denies lesions, rash or skin ulcer Neurologic Neurologic: Denies abnormal gait or abnormal speech Psychiatric Psychiatric: Denies anxiety or depression Endocrine Endocrinology: Reports fatigue Hematologic/Lymphatic Hematologic/Lymphatic: Denies easy bleeding or easy bruising Physical Exam Const alert and no apparent distress General Appearance: cooperative HEENT normocephalic, head/scalp atraumatic and moist oral mucous membranes Eyes PERRL, EOMs intact bilaterally and conjunctivae normal Neck supple General: trachea midline Chest inspection of chest normal Resp Auscultation: rales and diminished lung sounds Cardio regular rate and regular rhythm GI normal to inspection, nondistended, normoactive bowel sounds Extremity General Extremity: edema; Negative for clubbing Skin no rashes or lesions noted Neuro CN's II-XII intact bilaterally and no focal motor deficits Psych Mood & Affect: flat affect Medical Records Data Medical Nutrition Assessment Dietitian: Malnutrition Criteria Met Start: 04/18/22 11:41 Freq: Status: Active Protocol: Document 04/18/22 11:42 [facility] (Rec: 04/18/22 11:43 [facility] [id number]) Nutrition Malnutrition Evidence of Malnutrition Exists Yes Malnutrition (severe): Acute Illness/Injury Evidenced By Suboptimal Energy Intake ( Severe),Weight Loss (Severe) Clinical Problem Acute Disease or Injury Related Malnutrition Etiology related to recent chemo tx and pt with poor po intake making it difficult to consume adequate nutrition to meet est nutritional needs Signs/Symptoms as evidenced by <50% po intake and 3.2% wt loss x past 2 wks when pt had chemo tx. Status Active Problem Recommendation Dietitian Recommendations/Changes Will liberalize diet to Consistent CHO d/t signs and symptoms of malnutrition Will order 120 ml glucerna shake 4x/day w/ medpass for increased nutrition if consumed. Lab / Micro Data Result Diagrams: 04/19/22 06:00 04/18/22 06:33 Labs: Laboratory Results - last 24 hr 04/18/22 06:26: POC Glucose 148 H 04/18/22 06:33: WBC 32.3 H*, RBC 3.28 L, Hgb 10.2 L, Hct 32.6 L, MCV 99.4 H, MCH 31.1, MCHC 31.3 L, RDW Std Deviation 68.9 H, RDW Coeff of Liliana 19.4 H, Plt Count 107 L, MPV 9.6, Immature Gran % (Auto) 2.000 H, Neut % (Auto) 30.5 L, Lymph % (Auto) 37.0, [place] % (Auto) 29.8 H, Eos % (Auto) 0.4, Baso % (Auto) 0.3, Absolute Neuts (auto) 9.9 H, Absolute Lymphs (auto) 11.96 H, Nucleated RBC % 0.1, Diff Path Review May foll, Atypical Lymphocytes 2+, Reactive Lymphocytes 2+ 04/18/22 06:33: Sodium 136, Potassium 3.7, Chloride 101, Carbon Dioxide 27.0, Anion Gap 8, BUN 26 H, Creatinine 1.16, Estim Creat Clear Calc 53.82, Est GFR (MDRD) Af Amer 79, Est GFR (MDRD) Non-Af 66, BUN/Creatinine Ratio 22.4 H, Glucose 151 H, Calcium 8.4 L, Total Bilirubin 0.80, AST 73 H, ALT 48, Alkaline Phosphatase 164 H, Total Protein 6.7, Albumin 2.8 L, Globulin 3.9, Albumin/Globulin Ratio 0.7 L 04/18/22 11:47: POC Glucose 160 H 04/18/22 16:19: POC Glucose 233 H 04/18/22 20:53: POC Glucose 264 H 04/19/22 06:35: POC Glucose 131 H Micro: Microbiology 04/18/22 00:12 Mucosa - Nose Respiratory Panel (PCR) - Final Radiology Impression Chest CTA 04/18/22 10:28 IMPRESSION: No demonstrated pulmonary embolism or arterial dissection. Bilateral pleural effusions associated with dependent consolidation within the lower lobes. Bilateral groundglass opacities, a nonspecific finding may be secondary to edema and or an infectious process. Atherosclerosis. Splenomegaly. Electronically Signed: Justa Bunn MD at 11:37 EDT , Echocardiogram 04/18/22 10:28 Interpretation Summary Normal LV size. The estimated ejection fraction is 50 %. [place] : Hypokinetic. Peak aortic valve gradient 30 mmHg. Mean aortic valve gradient 17 mmHg. Mild aortic stenosis. Pulmonary artery systolic pressure is 54 mmHg. Contrast injection was performed. Ordering Physician: Kennedi Mccloud Referring Physician: Roe Causey Performed By: Arabella Cortez, LARA, RVT Charges/Coding Visit Charges Inpatient E&M: 13717 Init Hosp L3
[2022-04-19 07:05] LABS: Absolute Lymphocyte Count 6.65 X10^3/uL (0.83-4.51); Absolute Neutrophil Count 4.5 X10^3/uL (2.0-7.7); Basophil# 0.06 X10^3/uL; Basophil% 0.3 % (0-1); Eosinophil# 0.26 X10^3/uL; Eosinophils% 1.2 % (0-5); Hematocrit 26.3 % (40-54); Hemoglobin 8.2 g/dL (13.0-16.5); Lymphocyte # 6.65 X10^3/ul (0.83-4.51); Lymphocyte % 30.9 % (19-41); Mean Corp Hgb Conc 31.2 g/dL (32-36); Mean Corpuscular Hgb 30.6 pg (27.0-32.0); Mean Corpuscular Volume 98.1 fL (80-94); Mean Platelet Vol. 9.8 fl (6.2-12.0); Monocyte# 9.81 X10^3/uL; Monocyte% 45.6 % (0-10); NRBC Flagged by Analyzer 0 % (0-5); Neutrophil # 4.53 X10^3/uL (2.7-7.7); Neutrophil % 21.1 % (47-70); POSITIVE DIFFERENTIAL YES; POSITIVE MORPHOLOGY YES; Platelet Count 100 K/mm3 (150-450); RBC Distribution Width CV 18.5 % (11.6-14.6); RBC Distribution Width SD 65.7 fl (35.1-43.9); Red Blood Count 2.68 M/mm3 (4.6-6.2); White Blood Count 21.5 K/mm3 (4.4-11.0)
[2022-04-19 07:18] LABS: Differential Indicated SCAN CRITERIA MET
[2022-04-19 07:54] LABS: Anion Gap 9 (5-15); BUN 25 mg/dL (7-18); BUN/Creat Ratio 20.7 RATIO (10-20); Chloride 100 mmol/L (98-107); Creatinine, Serum 1.21 mg/dL (0.70-1.30); EST Glomerular Filtration Rate 63 mL/min (>60); Est Glom Filt Rate - Afr Amer 76 mL/min (>60); Estimated Creatinine Clearance 51.59 ml/min; Glucose 133 mg/dL (74-106); Potassium 3.1 mmol/L (3.5-5.1); Sodium Level 137 mmol/L (136-145)
[2022-04-19] MEDS: Allopurinol 100 MG Tablet PO (07:59)
[2022-04-19] MEDS: Pantoprazole Sodium 40 MG Tablet PO (09:37)
[2022-04-19] MEDS: Furosemide 40 MG/4 ML Vial IV ×2 (09:37→18:26)
--- NOTE | 2022-04-19 09:44 | ONC.PN.INPT ---
Subjective Subjective Satting 96% on 4 L per nasal cannula this morning. He feels his breathing is much more comfortable. He has not had any episodes of chest pain or pressure. In chair this morning. Vital Signs Temperature 98 F 04/19/22 09:30 Temperature Source Temporal 04/19/22 09:30 Pulse Rate 98 04/19/22 09:30 Pulse Strength Normal (2+) 04/19/22 08:41 Respiratory Rate 20 H 04/19/22 09:30 Respiratory Effort Non-Labored 04/19/22 08:00 Respiratory Depth Normal 04/19/22 08:00 Respiratory Pattern Normal 04/19/22 08:00 Blood Pressure 100/62 04/19/22 09:30 Blood Pressure Mean 74 04/19/22 09:30 Blood Pressure Source Monitor 04/19/22 09:30 Blood Pressure Position Sitting 04/19/22 09:30 Blood Pressure Location Left Arm 04/19/22 09:30 Pulse Ox 96 04/19/22 09:30 Oxygen Delivery Method Nasal Cannula 04/19/22 08:00 Oxygen Flow Rate (L/min) 4 04/19/22 09:30 Fraction of Inspired Oxygen (FIO2) 40 04/19/22 03:34 Laboratory Results - last 24 hr 04/18/22 11:47: POC Glucose 160 H 04/18/22 16:19: POC Glucose 233 H 04/18/22 20:53: POC Glucose 264 H 04/19/22 06:00: WBC 21.5 H, RBC 2.68 L, Hgb 8.2 L, Hct 26.3 L, MCV 98.1 H, MCH 30.6, MCHC 31.2 L, RDW Std Deviation 65.7 H, RDW Coeff of Liliana 18.5 H, Plt Count 100 L, MPV 9.8, Immature Gran % (Auto) 0.900, Neut % (Auto) 21.1 L, Lymph % (Auto) 30.9, [place] % (Auto) 45.6 H, Eos % (Auto) 1.2, Baso % (Auto) 0.3, Absolute Neuts (auto) 4.5, Absolute Lymphs (auto) 6.65 H, Nucleated RBC % 0, Diff Path Review March04/19/22 06:00: Sodium 137, Potassium 3.1 L, Chloride 100, Carbon Dioxide 28.0, Anion Gap 9, BUN 25 H, Creatinine 1.21, Estim Creat Clear Calc 51.59, Est GFR (MDRD) Af Amer 76, Est GFR (MDRD) Non-Af 63, BUN/Creatinine Ratio 20.7 H, Glucose 133 H, Calcium 8.0 L 04/19/22 06:35: POC Glucose 131 H Diagnostic Data Chest X-Ray 04/17/22 20:15 IMPRESSION: Findings consistent with infection versus pulmonary edema including noncardiogenic pulmonary edema which may be transfusion related. Electronically Signed: Christophe Vargas MD at 20:31 EDT , Chest CTA 04/18/22 10:28 IMPRESSION: No demonstrated pulmonary embolism or arterial dissection. Bilateral pleural effusions associated with dependent consolidation within the lower lobes. Bilateral groundglass opacities, a nonspecific finding may be secondary to edema and or an infectious process. Atherosclerosis. Splenomegaly. Electronically Signed: Justa Bunn MD at 11:37 EDT , Echocardiogram 04/18/22 10:28 Interpretation Summary Normal LV size. The estimated ejection fraction is 50 %. [place] : Hypokinetic. Peak aortic valve gradient 30 mmHg. Mean aortic valve gradient 17 mmHg. Mild aortic stenosis. Pulmonary artery systolic pressure is 54 mmHg. Contrast injection was performed. Ordering Physician: Kennedi Mccloud Referring Physician: Roe Causey Performed By: Arabella Cortez, RDCS, RVT Assessment & Plan Assessment/Plan (1) Acute and chronic respiratory failure with hypoxia: (2) Lymphoma, marginal zone, spleen: (3) Bilateral interstitial pneumonia: PLAN: Impression: -Acute on chronic hypoxemic respiratory failure. -Radiographic evidence of chronic interstitial lung disease with groundglass opacities that had been stable during his hospitalization recently. -CTA results noted. -Pulmonary hypertension with right heart failure. Repeat echocardiogram consistent with previous--moderate pulmonary HTN. -No further fever. -Oxygenation improving nicely with diuresis. Plan: -Continue broad-spectrum antibiotics. -Continued diuresis. -PT to assess for SNF placement. Had been falling a lot at home after discharge from main campus. -Will resume chemotherapy when more fit to do so.
[2022-04-19] MEDS: Enoxaparin 40 MG/0.4 ML Syringe SC (09:47)
[2022-04-19] MEDS: Albuterol 2.5 MG/3 ML VIAL.NEB. INHALATION (10:45)
--- NOTE | 2022-04-19 10:57 | PN.HOSP_ITS ---
Subjective Subjective Patient seen and examined. He has no active complaints and feels much better. He is on 4L of oxygen now. He denies any chest pain, palpitations, dizziness, nausea or vomiting. Review of systems is otherwise negative. Objective Data Objective Data Vital Signs: Vital Signs Temp Pulse Resp BP Pulse Ox 98 F 98 20 H 100/62 96 04/19/22 09:30 04/19/22 09:30 04/19/22 09:30 04/19/22 09:30 04/19/22 09:30 Oxygen Flow Rate (L/min) 4 Oxygen Delivery Method Nasal Cannula Weight: 225 lb 1.471 oz Body Mass Index (BMI) 35.0 Intake & Output: Intake and Output for Last 24 Hours 04/17/22 04/18/22 04/19/22 23:59 23:59 23:59 Intake Total 1305 / 1305 1280 / 1280 340 / 340 Output Total 0 / 0 0 / 2049 400 / 400 Balance 1305 / 1305 -770 / -770 -60 / -60 Medical Nutrition Assessment Dietitian: Malnutrition Criteria Met Start: 04/18/22 11:41 Freq: Status: Active Protocol: Document 04/18/22 11:42 CLARISSA (Rec: 04/18/22 11:43 SLA [id number]) Nutrition Malnutrition Evidence of Malnutrition Exists Yes Malnutrition (severe): Acute Illness/Injury Evidenced By Suboptimal Energy Intake ( Severe),Weight Loss (Severe) Clinical Problem Acute Disease or Injury Related Malnutrition Etiology related to recent chemo tx and pt with poor po intake making it difficult to consume adequate nutrition to meet est nutritional needs Signs/Symptoms as evidenced by <50% po intake and 3.2% wt loss x past 2 wks when pt had chemo tx. Status Active Problem Recommendation Dietitian Recommendations/Changes Will liberalize diet to Consistent CHO d/t signs and symptoms of malnutrition Will order 120 ml glucerna shake 4x/day w/ medpass for increased nutrition if consumed. Lab / Micro Data Result Diagrams: 04/19/22 06:00 04/19/22 06:00 Labs: Laboratory Results - last 24 hr 04/18/22 11:47: POC Glucose 160 H 04/18/22 16:19: POC Glucose 233 H 04/18/22 20:53: POC Glucose 264 H 04/19/22 06:00: WBC 21.5 H, RBC 2.68 L, Hgb 8.2 L, Hct 26.3 L, MCV 98.1 H, MCH 30.6, MCHC 31.2 L, RDW Std Deviation 65.7 H, RDW Coeff of Liliana 18.5 H, Plt Count 100 L, MPV 9.8, Immature Gran % (Auto) 0.900, Neut % (Auto) 21.1 L, Lymph % (Auto) 30.9, [place] % (Auto) 45.6 H, Eos % (Auto) 1.2, Baso % (Auto) 0.3, Absolute Neuts (auto) 4.5, Absolute Lymphs (auto) 6.65 H, Nucleated RBC % 0, Diff Path Review March04/19/22 06:00: Sodium 137, Potassium 3.1 L, Chloride 100, Carbon Dioxide 28.0, Anion Gap 9, BUN 25 H, Creatinine 1.21, Estim Creat Clear Calc 51.59, Est GFR (MDRD) Af Amer 76, Est GFR (MDRD) Non-Af 63, BUN/Creatinine Ratio 20.7 H, Glu cose 133 H, Calcium 8.0 L 04/19/22 06:35: POC Glucose 131 H Micro: Microbiology 04/18/22 02:00 Urine, Clean Catch Urine Culture - Final Mixed Gram Positive Organisms 04/18/22 00:12 Mucosa - Nose Respiratory Panel (PCR) - Final 04/17/22 02:00 Urine, Clean Catch Legionella Antigen - Final 04/17/22 02:00 Urine, Clean Catch Streptococcus pneumoniae Antigen (M - Final 04/17/22 20:30 Nasal Secretion SARS-CoV-2 & FLU Antigen (Rapid) - Final Radiography Diagnostic Testing: Radiology Impression Chest CTA 04/18/22 10:28 IMPRESSION: No demonstrated pulmonary embolism or arterial dissection. Bilateral pleural effusions associated with dependent consolidation within the lower lobes. Bilateral groundglass opacities, a nonspecific finding may be secondary to edema and or an infectious process. Atherosclerosis. Splenomegaly. Electronically Signed: Justa Bunn MD at 11:37 EDT , Echocardiogram 04/18/22 10:28 Interpretation Summary Normal LV size. The estimated ejection fraction is 50 %. [place] : Hypokinetic. Peak aortic valve gradient 30 mmHg. Mean aortic valve gradient 17 mmHg. Mild aortic stenosis. Pulmonary artery systolic pressure is 54 mmHg. Contrast injection was performed. Ordering Physician: Kennedi Mccloud Referring Physician: Roe Causey Performed By: Arabella Cortez, LARA, RVT Physical Exam Const alert and oriented x3 Orientation / Consciousness: lethargic Exam Limitations: no limitations HEENT head/scalp atraumatic and moist oral mucous membranes Head and Scalp: normocephalic Eyes PERRL, EOMs intact bilaterally and conjunctivae normal Neck no lymphadenopathy Resp Resp Narrative: mildly diminished breath sounds bibasally, few bilateral crackles. On 2L of oxygen Cardio regular rate, regular rhythm, S1 normal heart sound, S2 normal heart sound and no murmurs GI normal to inspection, nondistended, normoactive bowel sounds, soft to palpation, non-tender and non-distended Extremity normal to inspection, full ROM and no clubbing, cyanosis or edema Peripheral Pulses: Yes pulses 2+ throughout Skin no rashes or lesions noted Neuro oriented x3 and moves all extremities Sensorium / Orientation: awake and alert Psych affect normal Assessment & Plan Assessment/Plan (1) Bilateral interstitial pneumonia: (2) Acute and chronic respiratory failure with hypoxia: PLAN: #Acute on chronic hypoxic respiratory failure * due to bilateral pneumonia and probable transfusion associated circulatory overload * CXR showed findings consistent with infection vs pulmonary edema * improving. * per his oncologst, there was concern for right heart failure based on 2D echo fro February 2022 which showed RVSp of 56mmhg. * on iV lasix 40mg bid; shortness of breath improved after lasix was startted. * pulmonology on board * on IV zosyn. * sputum cultures pending * CTA chest showed no evidence of PE, and showed bilateral groundglass opac ities. * #Splenic lymphoma * oncology on board * was recently admitted at [facility] * follow up with oncology on outpatient basis * #CHronic HFpEF * EF from 2D echo in February 2022 was 57%, with grade 1 left ventricular diastolic dysfunction and dilated RV, with moderate aortic stenosis * 2D echo during this admission showed EF of 50%, wtith hypokinetic apex, mild aortic stenosis and pulmonary artery systolic pressure of 54mmHg * on IV lasix 40mg bid due to Transfusion related circulatory overload * monitor intake and output * fluid restriction to 1500cc daily * #Type 2 diabetes mellitus: Oral meds on hold. Insulin sliding scale. Accu- Cheks ACH S. #GERD with history of gastric ulcer: On PPI #Thrombocytopenia * Platelets are 100 * This likely related to lymphoma. * Currently on Lovenox. * Will monitor platelets and if it drops some more, will DC Lovenox. #DVT prophylaxis: Lovenox CODE STATUS: DNR CCA no intubation * Charges/Coding Visit Charges Inpatient E&M: 85383 Subs Hosp L2
[2022-04-19] MEDS: Insulin Lispro 100 UNIT/ML INSULN.PEN SC ×3 (11:28→21:27)
[2022-04-19 11:36] LABS: Bedside Glucose 301 mg/dL (74-106)
[2022-04-19] MEDS: Glucerna Shake 120 ML LIQUID PO ×2 (13:40→21:34)
[2022-04-19] MEDS: Acetaminophen 325 MG Tablet 650 MG PO ×2 (15:33→21:32)
[2022-04-19 17:00] LABS: Bedside Glucose 233 mg/dL (74-106)
[2022-04-19] MEDS: Atorvastatin Calcium 10 MG Tablet 5 MG PO (21:24)
[2022-04-19 22:10] LABS: Bedside Glucose 260 mg/dL (74-106)
[2022-04-20] VITALS (15 sets, daily range): BP systolic 98–134; BP diastolic 54–88; PULSE 84–112; RESP 18–22; TEMP 36.7–39.1; O2SAT 90–98
--- NOTE | 2022-04-20 00:04 | NURSING ---
Zosyn was administered at this time d/t previous bag was still infusing at 2100 tonight. Previous nurse stated the clamp was left on when bag was started and it was noticed at 1700. After discussion with pharmacy stated to give after midnight to get dose back on schedule.
[2022-04-20 06:11] LABS: Absolute Lymphocyte Count 6.86 X10^3/uL (0.83-4.51); Absolute Neutrophil Count 4.2 X10^3/uL (2.0-7.7); Basophil# 0.05 X10^3/uL; Basophil% 0.2 % (0-1); Eosinophils% 1.2 % (0-5); Hematocrit 27.1 % (40-54); Hemoglobin 8.3 g/dL (13.0-16.5); Lymphocyte # 6.86 X10^3/ul (0.83-4.51); Lymphocyte % 28.4 % (19-41); Mean Corp Hgb Conc 30.6 g/dL (32-36); Mean Corpuscular Hgb 30.3 pg (27.0-32.0); Mean Corpuscular Volume 98.9 fL (80-94); Mean Platelet Vol. 9.7 fl (6.2-12.0); Monocyte# 12.56 X10^3/uL; NRBC Flagged by Analyzer 0.1 % (0-5); Neutrophil # 4.16 X10^3/uL (2.7-7.7); Neutrophil % 17.3 % (47-70); POSITIVE DIFFERENTIAL YES; POSITIVE MORPHOLOGY YES; Platelet Count 102 K/mm3 (150-450); RBC Distribution Width CV 18.1 % (11.6-14.6); RBC Distribution Width SD 64.8 fl (35.1-43.9); Red Blood Count 2.74 M/mm3 (4.6-6.2); White Blood Count 24.2 K/mm3 (4.4-11.0)
[2022-04-20 06:15] LABS: Differential Indicated SCAN CRITERIA MET
--- NOTE | 2022-04-20 06:27 | PCM.PN.INT ---
Assessment & Plan Assessment/Plan (1) Acute and chronic respiratory failure with hypoxia: PLAN: RECOMMENDATIONS: 1. Continue to wean supplemental oxygen to maintain saturations at or above 90%. 2. Continue diuresis as tolerated by hemodynamics and renal function. 3. Encourage incentive spirometer use and mobilize patient as tolerated. 4. Continue empiric antimicrobials. 5. Potassium repletion as ordered. IMPRESSIONS: 1. Acute on chronic hypoxemic respiratory failure The patient initially presented to the hospital with dyspnea and low-grade fever following transfusion of blood products on an outpatient basis. The patient has a history of aggressive B-cell lymphoma and was recently started on chemotherapy. Chest imaging did demonstrate bilateral groundglass opacities and pleural effusions. The patient has a known history of pulmonary hypertension based upon recent echocardiogram. Therefore, it is certainly possible that the patient's presenting symptoms could have been either transfusion related acute lung injury or transfusion associated circulatory overload. Alternatively, an acute pulmonary infectious process is also a possibility. The patient has been managed with diuretic therapy and appears to be improving from a respiratory perspective. In this particular setting, given his response to diuretics, it seems more likely that the patient may have experienced TACO as opposed to TRALI. I would plan to continue to diurese him as tolerated by hemodynamics and renal function. Continue empiric antimicrobials, pending finalized culture results. 2. Heart failure with preserved ejection fraction/pulmonary hypertension Plan to continue diuresis as tolerated by hemodynamics and renal function. It is unclear to me what type of secondary work-up for his pulmonary hypertension has been completed already on an outpatient basis. 3. Hypokalemia Electrolyte repletion as ordered. Recheck levels in the morning. 4. Lymphoma/diabetes mellitus/GERD/hyperlipidemia Complicates care, management, recovery and prognosis. Continue home medications as indicated. This note was generated with [employer] dictation software. It may contain incorrect words, spelling, and punctuation that were not noted in checking the note before signing. Subjective Subjective The patient was seen and examined at the bedside this morning. Events from the last 24 hours have been reviewed. The patient did have an isolated fever documented overnight at 101.7 ?F. As of this morning, the patient is afebrile. He is currently maintaining appropriate oxygen saturations on 3 L/min via nasal cannula. The patient remains on appropriate empiric antimicrobials along with scheduled diuretics. White count is stable at 24,000. Shortness of breath is improving. Potassium is low at 3.0. Creatinine remains within normal limits. Objective Data Objective Data The patient's most recent lab work, culture data and imaging studies have all been personally reviewed. Surface echocardiogram demonstrated normal LV size and function with an ejection fraction of 50%. Pulmonary artery systolic pressure was estimated to be 54 mmHg. Mild aortic stenosis was noted. Infectious work-up has been unrevealing to date. Vital Signs: Vital Signs Temp Pulse Resp BP Pulse Ox 98.1 F 84 18 101/54 L 94 04/20/22 03:44 04/20/22 03:44 04/20/22 03:44 04/20/22 03:44 04/20/22 03:44 Oxygen Flow Rate (L/min) 3 Oxygen Delivery Method Nasal Cannula Weight: 102.4 kg Body Mass Index (BMI) 35.0 Intake & Output: Intake and Output for Last 24 Hours 04/18/22 04/19/22 04/20/22 23:59 23:59 23:59 Intake Total 1280 / 1280 1530 / 1830 350 / 350 Output Total 2049 / 2049 1700 / 2050 350 / 350 Balance -770 / -770 -170 / -220 0 / 0 Medical Nutrition Assessment Dietitian: Malnutrition Criteria Met Start: 04/18/22 11:41 Freq: Status: Active Protocol: Document 04/18/22 11:42 CLARISSA (Rec: 04/18/22 11:43 CLARISSA [id number]) Nutrition Malnutrition Evidence of Malnutrition Exists Yes Malnutrition (severe): Acute Illness/Injury Evidenced By Suboptimal Energy Intake ( Severe),Weight Loss (Severe) Clinical Problem Acute Disease or Injury Related Malnutrition Etiology related to recent chemo tx and pt with poor po intake making it difficult to consume adequate nutrition to meet est nutritional needs Signs/Symptoms as evidenced by <50% po intake and 3.2% wt loss x past 2 wks when pt had chemo tx. Status Active Problem Recommendation Dietitian Recommendations/Changes Will liberalize diet to Consistent CHO d/t signs and symptoms of malnutrition Will order 120 ml glucerna shake 4x/day w/ medpass for increased nutrition if consumed. Lab / Micro Data Attestation: I reviewed the patient's lab results. Result Diagrams: 04/20/22 05:31 04/20/22 05:31 Labs: Laboratory Results - last 24 hr 04/19/22 06:00: WBC 21.5 H, RBC 2.68 L, Hgb 8.2 L, Hct 26.3 L, MCV 98.1 H, MCH 30.6, MCHC 31.2 L, RDW Std Deviation 65.7 H, RDW Coeff of Liliana 18.5 H, Plt Count 100 L, MPV 9.8, Immature Gran % (Auto) 0.900, Neut % (Auto) 21.1 L, Lymph % (Auto) 30.9, [place] % (Auto) 45.6 H, Eos % (Auto) 1.2, Baso % (Auto) 0.3, Absolute Neuts (auto) 4.5, Absolute Lymphs (auto) 6.65 H, Nucleated RBC % 0, Diff Path Review March04/19/22 06:00: Sodium 137, Potassium 3.1 L, Chloride 100, Carbon Dioxide 28.0, Anion Gap 9, BUN 25 H, Creatinine 1.21, Estim Creat Clear Calc 51.59, Est GFR (MDRD) Af Amer 76, Est GFR (MDRD) Non-Af 63, BUN/Creatinine Ratio 20.7 H, Glucose 133 H, Calcium 8.0 L 04/19/22 06:35: POC Glucose 131 H 04/19/22 11:24: POC Glucose 301 H 04/19/22 16:43: POC Glucose 233 H 04/19/22 21:26: POC Glucose 260 H 04/20/22 05:31: WBC 24.2 H, RBC 2.74 L, Hgb 8.3 L, Hct 27.1 L, MCV 98.9 H, MCH 30.3, MCHC 30.6 L, RDW Std Deviation 64.8 H, RDW Coeff of Liliana 18.1 H, Plt Count 102 L, MPV 9.7, Immature Gran % (Auto) 0.900, Neut % (Auto) 17.3 L, Lymph % (Auto) 28.4, [place] % (Auto) 52.0 H, Eos % (Auto) 1.2, Baso % (Auto) 0.2, Absolute Neuts (auto) 4.2, Absolute Lymphs (auto) 6.86 H, Nucleated RBC % 0.1 Micro: Microbiology 04/18/22 02:00 Urine, Clean Catch Urine Culture - Final Mixed Gram Positive Organisms 04/18/22 00:12 Mucosa - Nose Respiratory Panel (PCR) - Final 04/17/22 02:00 Urine, Clean Catch Legionella Antigen - Final 04/17/22 02:00 Urine, Clean Catch Streptococcus pneumoniae Antigen (M - Final 04/17/22 20:30 Nasal Secretion SARS-CoV-2 & FLU Antigen (Rapid) - Final Physical Exam Const alert and no apparent distress General Appearance: cooperative HEENT normocephalic, head/scalp atraumatic and moist oral mucous membranes Eyes PERRL, EOMs intact bilaterally and conjunctivae normal Neck supple General: trachea midline Chest inspection of chest normal Resp Auscultation: rales and diminished lung sounds Cardio regular rate and regular rhythm GI normal to inspection, nondistended, normoactive bowel sounds Extremity General Extremity: edema; Negative for clubbing Skin no rashes or lesions noted Neuro CN's II-XII intact bilaterally and no focal motor deficits Psych Mood & Affect: flat affect Charges/Coding Visit Charges Inpatient E&M: 61961 Subs Hosp L2
[2022-04-20] MEDS: Insulin Lispro 100 UNIT/ML INSULN.PEN SC ×4 (06:33→21:40)
[2022-04-20 06:46] LABS: Anion Gap 8 (5-15); BUN 25 mg/dL (7-18); BUN/Creat Ratio 19.2 RATIO (10-20); Chloride 100 mmol/L (98-107); EST Glomerular Filtration Rate 58 mL/min (>60); Est Glom Filt Rate - Afr Amer 70 mL/min (>60); Estimated Creatinine Clearance 48.02 ml/min; Glucose 169 mg/dL (74-106); Sodium Level 137 mmol/L (136-145)
[2022-04-20 07:05] LABS: Bedside Glucose 188 mg/dL (74-106)
[2022-04-20 07:09] LABS: Anisocytosis 2+; Atypical Lymphocyte 1+ %; Macrocytosis 1+
[2022-04-20 07:10] LABS: Reactive Lymphocyte 2+
[2022-04-20] MEDS: Glucerna Shake 120 ML LIQUID PO ×4 (08:22→21:40)
[2022-04-20] MEDS: Furosemide 40 MG/4 ML Vial IV ×2 (08:22→17:27)
[2022-04-20] MEDS: Pantoprazole Sodium 40 MG Tablet PO (08:22)
[2022-04-20] MEDS: Enoxaparin 40 MG/0.4 ML Syringe SC (08:22)
[2022-04-20] MEDS: Allopurinol 100 MG Tablet PO (08:22)
[2022-04-20] MEDS: Potassium Chloride Oral Tablet 20 MEQ 40 MEQ PO ×2 (08:22→16:37)
--- NOTE | 2022-04-20 09:22 | PN.HOSP_ITS ---
Subjective Subjective Short of breath and hypoxic with exertion. Objective Data Objective Data Vital Signs: Vital Signs Temp Pulse Resp BP Pulse Ox 37.3 C H 96 20 H 120/72 95 04/20/22 09:20 04/20/22 09:20 04/20/22 09:20 04/20/22 09:20 04/20/22 09:20 Oxygen Flow Rate (L/min) 3 Oxygen Delivery Method Nasal Cannula Weight: 102.4 kg Body Mass Index (BMI) 35.0 Intake & Output: Intake and Output for Last 24 Hours 04/18/22 04/19/22 04/20/22 23:59 23:59 23:59 Intake Total 1280 / 1280 1530 / 1830 470 / 470 Output Total 2049 / 2049 170 / 2049 800 / 800 Balance -770 / -770 -170 / -220 -330 / -330 Medical Nutrition Assessment Dietitian: Malnutrition Criteria Met Start: 04/18/22 11:41 Freq: Status: Active Protocol: Document 04/18/22 11:42 CLARISSA (Rec: 04/18/22 11:43 [facility] [id number]) Nutrition Malnutrition Evidence of Malnutrition Exists Yes Malnutrition (severe): Acute Illness/Injury Evidenced By Suboptimal Energy Intake ( Severe),Weight Loss (Severe) Clinical Problem Acute Disease or Injury Related Malnutrition Etiology related to recent chemo tx and pt with poor po intake making it difficult to consume adequate nutrition to meet est nutritional needs Signs/Symptoms as evidenced by <50% po intake and 3.2% wt loss x past 2 wks when pt had chemo tx. Status Active Problem Recommendation Dietitian Recommendations/Changes Will liberalize diet to Consistent CHO d/t signs and symptoms of malnutrition Will order 120 ml glucerna shake 4x/day w/ medpass for increased nutrition if consumed. Lab / Micro Data Result Diagrams: 04/20/22 05:31 04/20/22 05:31 Labs: Laboratory Results - last 24 hr 04/19/22 11:24: POC Glucose 301 H 04/19/22 16:43: POC Glucose 233 H 04/19/22 21:26: POC Glucose 260 H 04/20/22 05:31: WBC 24.2 H, RBC 2.74 L, Hgb 8.3 L, Hct 27.1 L, MCV 98.9 H, MCH 30.3, MCHC 30.6 L, RDW Std Deviation 64.8 H, RDW Coeff of Liliana 18.1 H, Plt Count 102 L, MPV 9.7, Immature Gran % (Auto) 0.900, Neut % (Auto) 17.3 L, Lymph % (Auto) 28.4, [place] % (Auto) 52.0 H, Eos % (Auto) 1.2, Baso % (Auto) 0.2, Absolute Neuts (auto) 4.2, Absolute Lymphs (auto) 6.86 H, Nucleated RBC % 0.1, Diff Path Review May , Atypical Lymphocytes 1+, Reactive Lymphocytes 2+, Anisocytosis 2+, Macrocytosis 1+ 04/20/22 05:31: Sodium 137, Potassium 3.0 L, Chloride 100, Carbon Dioxide 29.0, Anion Gap 8, BUN 25 H, Creatinine 1.30, Estim Creat Clear Calc 48.02, Est GFR (MDRD) Af Amer 70, Est GFR (MDRD) Non-Af 58 L, BUN/Creatinine Ratio 19.2, Glucose 169 H, Calcium 8.0 L 04/20/22 06:32: POC Glucose 188 H Micro: Microbiology 04/17/22 19:55 Blood Culture (Wb) - Anticubital Left Blood Culture - Preliminary No growth in 48 hours. 04/17/22 19:50 Blood Culture (Wb) - Anticubital Right Blood Culture - Preliminary No growth in 48 hours. 04/18/22 02:00 Urine, Clean Catch Urine Culture - Final Mixed Gram Positive Organisms 04/18/22 00:12 Mucosa - Nose Respiratory Panel (PCR) - Final 04/17/22 02:00 Urine, Clean Catch Legionella Antigen - Final 04/17/22 02:00 Urine, Clean Catch Streptococcus pneumoniae Antigen (M - Final 04/17/22 20:30 Nasal Secretion SARS-CoV-2 & FLU Antigen (Rapid) - Final Physical Exam Const alert and no apparent distress Resp normal respiratory effort, no retractions, no use of accessory muscles and clear to auscultation bilaterally Cardio regular rate, regular rhythm, S1 normal heart sound and S2 normal heart sound GI normal to inspection, nondistended, normoactive bowel sounds, soft to palpation, non-tender and non-distended Extremity normal to inspection Assessment & Plan Assessment/Plan (1) Bilateral interstitial pneumonia: (2) Acute and chronic respiratory failure with hypoxia: PLAN: 1. Acute on chronic hypoxic respiratory failure * 2/2 CHF complicated by TACO, doubt TRALI, doubt pneumonia. Given the pleural effusions, I doubt the transfusion is solely responsible, but vaishnavi tipped the patient over the edge in pt with HFpEF and PH. * CXR showed findings consistent with infection vs pulmonary edema * improving. * on iV lasix 40mg bid; shortness of breath improved after lasix was startted. * pulmonology on board * on IV zosyn. * sputum cultures pending * CTA chest showed no evidence of PE, and showed bilateral groundglass opacities. Bilateral pleural effusions 2. Splenic lymphoma * oncology on board * was recently admitted at [facility] * follow up with oncology on outpatient basis 3. Acute on CHronic HFpEF * EF from 2D echo in February 2022 was 57%, with grade 1 left ventricular diastolic dysfunction and dilated RV, with moderate aortic stenosis * 2D echo during this admission showed EF of 50%, wtith hypokinetic apex, mild aortic stenosis and pulmonary artery systolic pressure of 54mmHg * on IV lasix 40mg bid due to Transfusion related circulatory overload * monitor intake and output * fluid restriction to 1500cc daily 4. Type 2 diabetes mellitus: Oral meds on hold. Insulin sliding scale. Accu- Cheks ACH S. 5. GERD with history of gastric ulcer: On PPI 6. Thrombocytopenia * Platelets are 100 * This likely related to lymphoma. * Currently on Lovenox. * Will monitor platelets and if it drops some more, will DC Lovenox. 7.DVT prophylaxis: Lovenox CODE STATUS: DNR CCA no intubation DW his family member at bedside. Charges/Coding Visit Charges Inpatient E&M: 81052 Subs Hosp L2
[2022-04-20 11:41] LABS: Bedside Glucose 344 mg/dL (74-106)
[2022-04-20] MEDS: Acetaminophen 325 MG Tablet 650 MG PO ×3 (12:42→22:58)
[2022-04-20 13:26] LABS: Pathologist Review Reviewed
[2022-04-20 13:26] LABS: Pathologist Review Reviewed
[2022-04-20 13:27] LABS: Pathologist Review Reviewed
--- NOTE | 2022-04-20 14:16 | CHAPLAIN ---
Type of Pastoral Visit _x__ Initial Visit ___ Follow-up Visit ___ On-call Visit ___ General Patient Visit ___ Spiritual Assessment ___ Family Conference ___ Bereavement ___ Rapid Response ___ Code Blue ___ Other (describe below) Pastoral Care Referral From _x__ Patient ___ Family ___ Nurse ___ Physician ___ Linen Attendant ___ Tobacco Blender ___ Other (describe below) Sacrament/Intervention _x__ Active listening ___ Anointing ___ Yarsanism ___ Bereavement ___ Communion ___ Erum exploration ___ ___ Life review _x__ Prayer ___ Reconciliation ___ Sacrament of Sick _x__ Supportive presence ___ Wedding ___ Other (describe below) Pastoral Comments patient is napping but awakes easily to his name; pt describes what has happened; pt wonders out loud about how long it has taken to get improvement; pt has daughters that support him; prayer and presnce welcomed
[2022-04-20 16:45] LABS: Bedside Glucose 286 mg/dL (74-106)
[2022-04-20] MEDS: Atorvastatin Calcium 10 MG Tablet 5 MG PO (21:41)
[2022-04-20] MEDS: 0.9% Saline Lock 10 ML Syringe IV (21:43)
[2022-04-21] VITALS (10 sets, daily range): BP systolic 109–140; BP diastolic 66–74; PULSE 87–108; RESP 18–20; TEMP 36.4–39.6; O2SAT 93–98
[2022-04-21 01:51] LABS: Bedside Glucose 313 mg/dL (74-106)
[2022-04-21] MEDS: Acetaminophen 325 MG Tablet 650 MG PO ×2 (03:24→13:19)
[2022-04-21] MEDS: Insulin Lispro 100 UNIT/ML INSULN.PEN SC ×2 (06:12→11:11)
[2022-04-21] MEDS: 0.9% Saline Lock 10 ML Syringe IV ×2 (06:12→08:47)
[2022-04-21 06:21] LABS: Bedside Glucose 162 mg/dL (74-106)
[2022-04-21 07:07] LABS: Anion Gap 6 (5-15); BUN 21 mg/dL (7-18); BUN/Creat Ratio 17.1 RATIO (10-20); Calcium,Total 8.1 mg/dL (8.5-10.1); Chloride 101 mmol/L (98-107); Creatinine, Serum 1.23 mg/dL (0.70-1.30); EST Glomerular Filtration Rate 61 mL/min (>60); Est Glom Filt Rate - Afr Amer 74 mL/min (>60); Estimated Creatinine Clearance 50.75 ml/min; Glucose 180 mg/dL (74-106); Potassium 3.3 mmol/L (3.5-5.1); Sodium Level 137 mmol/L (136-145)
--- NOTE | 2022-04-21 07:42 | PN.HOSP_ITS ---
Subjective Subjective Breathing better today. Objective Data Objective Data Vital Signs: Vital Signs Temp Pulse Resp BP Pulse Ox 37.3 C H 87 20 H 121/69 H 97 04/21/22 03:26 04/21/22 07:03 04/21/22 03:26 04/21/22 03:26 04/21/22 03:26 Oxygen Flow Rate (L/min) 3 Oxygen Delivery Method Nasal Cannula Weight: 103.5 kg Body Mass Index (BMI) 35.0 Intake & Output: Intake and Output for Last 24 Hours 04/19/22 04/20/22 04/21/22 23:59 23:59 23:59 Intake Total 1530 / 1830 1530 / 1530 50 / 50 Output Total 1700 / 2050 1850 / 2250 600 / 600 Balance -170 / -220 -320 / -720 -550 / -550 Medical Nutrition Assessment Dietitian: Malnutrition Criteria Met Start: 04/18/22 11:41 Freq: Status: Active Protocol: Document 04/18/22 11:42 CLARISSA (Rec: 04/18/22 11:43 SLA [id number]) Nutrition Malnutrition Evidence of Malnutrition Exists Yes Malnutrition (severe): Acute Illness/Injury Evidenced By Suboptimal Energy Intake ( Severe),Weight Loss (Severe) Clinical Problem Acute Disease or Injury Related Malnutrition Etiology related to recent chemo tx and pt with poor po intake making it difficult to consume adequate nutrition to meet est nutritional needs Signs/Symptoms as evidenced by <50% po intake and 3.2% wt loss x past 2 wks when pt had chemo tx. Status Active Problem Recommendation Dietitian Recommendations/Changes Will liberalize diet to Consistent CHO d/t signs and symptoms of malnutrition Will order 120 ml glucerna shake 4x/day w/ medpass for increased nutrition if consumed. Lab / Micro Data Result Diagrams: 04/21/22 05:50 04/21/22 05:50 Labs: Laboratory Results - last 24 hr 04/17/22 19:50: Diff Path Review Reviewed 04/18/22 06:33: Diff Path Review Reviewed 04/19/22 06:00: Diff Path Review Reviewed 04/20/22 11:29: POC Glucose 344 H 04/20/22 16:34: POC Glucose 286 H 04/20/22 21:39: POC Glucose 313 H 04/21/22 05:50: WBC 23.3 H, RBC 2.61 L, Hgb 8.0 L, Hct 25.9 L, MCV 99.2 H, MCH 30.7, MCHC 30.9 L, RDW Std Deviation 64.1 H, RDW Coeff of Liliana 17.7 H, Plt Count 101 L, MPV 9.7, Immature Gran % (Auto) 0.900, Neut % (Auto) 15.4 L, Lymph % (Auto) 29.1, [place] % (Auto) 53.4 H, Eos % (Auto) 1.0, Baso % (Auto) 0.2, Absolute Neuts (auto) 3.6, Absolute Lymphs (auto) 6.80 H, Nucleated RBC % 0, Differential Comment SCANNED, Diff Path Review March, Atypical Lymphocytes 3+ 04/21/22 05:50: Sodium 137, Potassium 3.3 L, Chloride 101, Carbon Dioxide 30.0, Anion Gap 6, BUN 21 H, Creatinine 1.23, Estim Creat Clear Calc 50.75, Est GFR (MDRD) Af Amer 74, Est GFR (MDRD) Non-Af 61, BUN/Creatinine Ratio 17.1, Glucose 180 H, Calcium 8.1 L 04/21/22 06:10: POC Glucose 162 H Micro: Microbiology 04/17/22 19:55 Blood Culture (Wb) - Anticubital Left Blood Culture - Preliminary No growth in 48 hours. 04/17/22 19:50 Blood Culture (Wb) - Anticubital Right Blood Culture - Preliminary No growth in 48 hours. 04/18/22 02:00 Urine, Clean Catch Urine Culture - Final Mixed Gram Positive Organisms 04/18/22 00:12 Mucosa - Nose Respiratory Panel (PCR) - Final 04/17/22 02:00 Urine, Clean Catch Legionella Antigen - Final 04/17/22 02:00 Urine, Clean Catch Streptococcus pneumoniae Antigen (M - Final 04/17/22 20:30 Nasal Secretion SARS-CoV-2 & FLU Antigen (Rapid) - Final Physical Exam Const alert and no apparent distress Cardio regular rate, regular rhythm, S1 normal heart sound and S2 normal heart sound GI normal to inspection, nondistended, normoactive bowel sounds, soft to palpation, non-tender and non-distended Extremity normal to inspection Neuro Sensorium / Orientation: awake and alert Assessment & Plan Assessment/Plan (1) Bilateral interstitial pneumonia: (2) Acute and chronic respiratory failure with hypoxia: PLAN: 1. Acute on chronic hypoxic respiratory failure * 2/2 CHF complicated by TACO, doubt TRALI, doubt pneumonia. Given the pleural effusions, I doubt the transfusion is solely responsible, but vaishnavi tipped the patient over the edge in pt with HFpEF and PH. * CXR showed findings consistent with infection vs pulmonary edema * improving. * on iV lasix 40mg bid; shortness of breath improved after lasix was startted. * pulmonology on board * DC abx * sputum cultures pending * CTA chest showed no evidence of PE, and showed bilateral groundglass opacities. Bilateral pleural effusions * now back on his baseline oxygen 2. Splenic lymphoma * oncology on board * was recently admitted at [facility] * follow up with oncology on outpatient basis 3. Acute on CHronic HFpEF * EF from 2D echo in February 2022 was 57%, with grade 1 left ventricular diastolic dysfunction and dilated RV, with moderate aortic stenosis * 2D echo during this admission showed EF of 50%, wtith hypokinetic apex, mild aortic stenosis and pulmonary artery systolic pressure of 54mmHg * on IV lasix 40mg bid due to Transfusion related circulatory overload * monitor intake and output * fluid restriction to 1500cc daily 4. Type 2 diabetes mellitus: Oral meds on hold. Insulin sliding scale. Accu- Cheks ACH S. 5. GERD with history of gastric ulcer: On PPI 6. Thrombocytopenia * Platelets are 100 * This likely related to lymphoma. * Currently on Lovenox. * Will monitor platelets and if it drops some more, will DC Lovenox. 7.DVT prophylaxis: Lovenox CODE STATUS: DNR CCA no intubation DW his family member at bedside.
[2022-04-21 08:35] LABS: Hematocrit 25.9 % (40-54); Mean Corpuscular Hgb 30.7 pg (27.0-32.0); Mean Corpuscular Volume 99.2 fL (80-94); Red Blood Count 2.61 M/mm3 (4.6-6.2); White Blood Count 23.3 K/mm3 (4.4-11.0)
[2022-04-21 08:36] LABS: Differential Indicated MANUAL DIFF; Mean Corp Hgb Conc 30.9 g/dL (32-36); Mean Platelet Vol. 9.7 fl (6.2-12.0); POSITIVE DIFFERENTIAL YES; Platelet Count 101 K/mm3 (150-450); RBC Distribution Width CV 17.7 % (11.6-14.6); RBC Distribution Width SD 64.1 fl (35.1-43.9)
[2022-04-21] MEDS: Allopurinol 100 MG Tablet PO (08:47)
[2022-04-21] MEDS: Pantoprazole Sodium 40 MG Tablet PO (08:47)
[2022-04-21] MEDS: Enoxaparin 40 MG/0.4 ML Syringe SC (08:47)
[2022-04-21] MEDS: Glucerna Shake 120 ML LIQUID PO (08:47)
[2022-04-21] MEDS: Furosemide 40 MG/4 ML Vial IV (08:47)
[2022-04-21 08:49] LABS: Lymphocyte 24 % (19-41); Metamyelocyte 4 % (0-1); Myelocyte 9 % (0-0); Neutrophil-Segmented 18 % (47-70); Total Cells Counted 100 (MANUAL DIFF)
[2022-04-21 08:50] LABS: Anisocytosis 1+; Monocyte 26 % (0-10); Other WBC Type 19 %; Ovalocyte 1+
[2022-04-21 09:10] LABS: Platelet Estimate SLT DEC (ADEQ)
[2022-04-21 09:11] LABS: Absolute Lymphocyte Count 5.59 X10^3/uL (0.83-4.51); Absolute Neutrophil Count 4.2 X10^3/uL (2.0-7.7)
--- NOTE | 2022-04-21 09:38 | CASEMGMT ---
Addendum entered by Shannon Pastor 04/21/22 11:40: Per therapy note, pt sustains 90% or greater on 2L w/ activity, so does not qualify for increased home oxygen. Zaira VIVAS CM Addendum entered by Shannon Pastor 04/21/22 11:39: D/C summary/instructions faxed to [facility]. Zaira VIVAS CM Addendum entered by Shannon Pastor 04/21/22 10:08: Call to [facility] to update on pt discharge today, voices understanding, and D/C summ/instructions to be faxed once obtained. Zaira VIVAS CM Original Note: Pt has [facility] for home oxygen and per Jeremy at [facility], pt's order is for 1L at rest and 3L w/ activity. Pt to be tested on this for discharge and Yesenia VIVAS aware. Clinicals and MAT order faxed to [facility]. Zaira VIVAS CM
--- NOTE | 2022-04-21 10:00 | PN.CC_ITS ---
Assessment & Plan Assessment/Plan (1) Acute and chronic respiratory failure with hypoxia: PLAN: RECOMMENDATIONS: 1. Continue to wean supplemental oxygen to maintain saturations at or above 90%. 2. Continue diuresis as tolerated by hemodynamics and renal function. 3. Encourage incentive spirometer use and mobilize patient as tolerated. 4. Continue empiric antimicrobials. 5. Potassium repletion as ordered. IMPRESSIONS: 1. Acute on chronic hypoxemic respiratory failure The patient initially presented to the hospital with dyspnea and low-grade fever following transfusion of blood products on an outpatient basis. The steven velazquez has a history of aggressive B-cell lymphoma and was recently started on chemotherapy. Chest imaging did demonstrate bilateral groundglass opacities and pleural effusions. The patient has a known history of pulmonary hypertension based upon recent echocardiogram. Therefore, it is certainly possible that the patient's presenting symptoms could have been either transfusion related acute lung injury or transfusion associated circulatory overload. Alternatively, an acute pulmonary infectious process is also a possibility. The patient has been managed with diuretic therapy and appears to be improving from a respiratory perspective. In this particular setting, given his response to diuretics, it seems more likely that the patient may have experienced TACO as opposed to TRALI. I would plan to continue to diurese him as tolerated by hemodynamics and renal function. Continue empiric antimicrobials, pending finalized culture results. Patient could have a thoracentesis if he fails to respond to diuretic therapy. 2. Heart failure with preserved ejection fraction/pulmonary hypertension Plan to continue diuresis as tolerated by hemodynamics and renal function. It is unclear to me what type of secondary work-up for his pulmonary hypertension has been completed already on an outpatient basis. Clinical suspicion for type II pulmonary hypertension given valvular abnormalities and pleural effusions. 3. Hypokalemia Electrolyte repletion as ordered. Recheck levels in the morning. 4. Lymphoma/diabetes mellitus/GERD/hyperlipidemia Complicates care, management, recovery and prognosis. Continue home medications as indicated. This note was generated with [employer] dictation software. It may contain incorrect words, spelling, and punctuation that were not noted in checking the note before signing. Subjective Subjective Patient did okay overnight. Patient subjectively feels slightly improved compared to previous. Patient is still requiring supplemental oxygen and did have a significant fever over the last 24 hours. Patient is not reporting any new onset pains. Patient does have an intermittent cough. Patient has had bowel movements. Patient reportedly does have supplemental oxygen at home and wears 2 L with activity and sleep. Patient estimates that he wears this between 11 and 14 hours a day. Objective Data Objective Data Vital Signs: Vital Signs Temp Pulse Resp BP Pulse Ox 37.3 C H 87 20 H 121/69 H 96 04/21/22 03:26 04/21/22 07:03 04/21/22 03:26 04/21/22 03:26 04/21/22 07:30 Oxygen Flow Rate (L/min) 3 Oxygen Delivery Method Nasal Cannula Weight: 103.5 kg Body Mass Index (BMI) 35.0 Intake & Output: Intake and Output for Last 24 Hours 04/19/22 04/20/22 04/21/22 23:59 23:59 23:59 Intake Total 1530 / 1830 1530 / 1530 50 / 50 Output Total 1700 / 2050 1850 / 2250 600 / 600 Balance -170 / -220 -320 / -720 -550 / -550 Medical Nutrition Assessment Dietitian: Malnutrition Criteria Met Start: 04/18/22 11:41 Freq: Status: Active Protocol: Document 04/18/22 11:42 CLARISSA (Rec: 04/18/22 11:43 [facility] [id number]) Nutrition Malnutrition Evidence of Malnutrition Exists Yes Malnutrition (severe): Acute Illness/Injury Evidenced By Suboptimal Energy Intake ( Severe),Weight Loss (Severe) Clinical Problem Acute Disease or Injury Related Malnutrition Etiology related to recent chemo tx and pt with poor po intake making it difficult to consume adequate nutrition to meet est nutritional needs Signs/Symptoms as evidenced by <50% po intake and 3.2% wt loss x past 2 wks when pt had chemo tx. Status Active Problem Recommendation Dietitian Recommendations/Changes Will liberalize diet to Consistent CHO d/t signs and symptoms of malnutrition Will order 120 ml glucerna shake 4x/day w/ medpass for increased nutrition if consumed. Lab / Micro Data Result Diagrams: 04/21/22 05:50 04/21/22 05:50 Labs: Laboratory Results - last 24 hr 04/17/22 19:50: Diff Path Review Reviewed 04/18/22 06:33: Diff Path Review Reviewed 04/19/22 06:00: Diff Path Review Reviewed 04/20/22 11:29: POC Glucose 344 H 04/20/22 16:34: POC Glucose 286 H 04/20/22 21:39: POC Glucose 313 H 04/21/22 05:50: WBC Cancelled, Corrected WBC Cancelled, RBC Cancelled, Hgb Cancelled, Hct Cancelled, MCV Cancelled, MCH Cancelled, MCHC Cancelled, RDW Std Deviation Cancelled, RDW Coeff of Liliana Cancelled, Plt Count Cancelled, MPV Cancelled, Immature Gran % (Auto) Cancelled, Neut % (Auto) Cancelled, Lymph % (Auto) Cancelled, [place] % (Auto) Cancelled, Eos % (Auto) Cancelled, Baso % (Auto) Cancelled, Absolute Neuts (auto) Cancelled, Absolute Lymphs (auto) Cancelled, Total Counted Cancelled, Neutrophils % (Manual) Cancelled, Band Neutrophils % Cancelled, Lymphocytes % (Manual) Cancelled, Monocytes % (Manual) Cancelled, E osinophils % (Manual) Cancelled, Basophils % (Manual) Cancelled, Metamyelocytes % Cancelled, Myelocytes % Cancelled, Promyelocytes % Cancelled, Blast Cells % Cancelled, Plasma Cell % (Manual) Cancelled, Other Cells % Cancelled, Nucleated RBC % Cancelled, Nucleated RBCs/100 WBC Cancelled, Differential Comment Cancelled, Diff Path Review Cancelled, Hypersegmented Neuts Cancelled, Atypical Lymphocytes Cancelled, Reactive Lymphocytes Cancelled, Smudge Cells Cancelled, Toxic Granulation Cancelled, Toxic Vacuolation Cancelled, Dohle Bodies Cancelled, Joe Rods Cancelled, Platelet Estimate Cancelled, Plt Morphology Comment Cancelled, RBC Morphology Cancelled, Polychromasia Cancelled, Hypochromasia Cancelled, Poikilocytosis Cancelled, Basophilic Stippling Cancelled, Anisocytosis Cancelled, Microcytosis Cancelled, Macrocytosis Cancelled, Spherocytes Cancelled, Sickle Cells Cancelled, Target Cells Cancelled, Tear Drop Cells Cancelled, Ovalocytes Cancelled, Stomatocytes Cancelled, [place] Bodies Cancelled, Malika Cells Cancelled, Bite Cells Cancelled, Crenated Cell Cancelled, Acanthocytes (Spur) Cancelled, Rouleaux Cancelled, Schistocytes Cancelled 04/21/22 05:50: Sodium 137, Potassium 3.3 L, Chloride 101, Carbon Dioxide 30.0, Anion Gap 6, BUN 21 H, Creatinine 1.23, Estim Creat Clear Calc 50.75, Est GFR (MDRD) Af Amer 74, Est GFR (MDRD) Non-Af 61, BUN/Creatinine Ratio 17.1, Glucose 180 H, Calcium 8.1 L 04/21/22 05:50: WBC 23.3 H, RBC 2.61 L, Hgb 8.0 L, Hct 25.9 L, MCV 99.2 H, MCH 30.7, MCHC 30.9 L, RDW Std Deviation 64.1 H, RDW Coeff of Liliana 17.7 H, Plt Count 101 L, MPV 9.7, Neut % (Auto) Not Reportable, Absolute Neuts (auto) 4.2, Absolute Lymphs (auto) 5.59 H, Total Counted 100, Neutrophils % (Manual) 18 L, Lymphocytes % (Manual) 24, Monocytes % (Manual) 26 H, Metamyelocytes % 4 H, Myelocytes % 9 H, Other Cells % 19, Diff Path Review May , Platelet Estimate SLT DEC, Anisocytosis 1+, Ovalocytes 1+ 04/21/22 06:10: POC Glucose 162 H Micro: Microbiology 04/17/22 19:55 Blood Culture (Wb) - Anticubital Left Blood Culture - Preliminary No growth in 48 hours. 04/17/22 19:50 Blood Culture (Wb) - Anticubital Right Blood Culture - Preliminary No growth in 48 hours. 04/18/22 02:00 Urine, Clean Catch Urine Culture - Final Mixed Gram Positive Organisms 04/18/22 00:12 Mucosa - Nose Respiratory Panel (PCR) - Final 04/17/22 02:00 Urine, Clean Catch Legionella Antigen - Final 04/17/22 02:00 Urine, Clean Catch Streptococcus pneumoniae Antigen (M - Final 04/17/22 20:30 Nasal Secretion SARS-CoV-2 & FLU Antigen (Rapid) - Final Physical Exam Const alert and no apparent distress General Appearance: cooperative HEENT normocephalic, head/scalp atraumatic and moist oral mucous membranes Eyes PERRL, EOMs intact bilaterally and conjunctivae normal Neck supple General: trachea midline Chest inspection of chest normal Resp Auscultation: rales, wheezes scattered wheezes and diminished lung sounds; Negative for rhonchi Cardio regular rate, regular rhythm, no murmurs, no rub and no gallops GI normal to inspection, nondistended, normoactive bowel sounds Extremity General Extremity: edema; Negative for clubbing Skin no rashes or lesions noted Neuro CN's II-XII intact bilaterally and no focal motor deficits Psych Mood & Affect: flat affect Charges/Coding Visit Charges Inpatient E&M: 36736 Subs Hosp L2
--- NOTE | 2022-04-21 11:30 | PCM.DC ---
Discharge Instructions Diet Discharge Diet: 6 Cup Fluid Restriction Activity Discharge Activity: Return to Normal Activity Dressing / Incision Call your doctor if you observe: Shortness of breath and Swelling in the ankles Follow Up Care Test Results: Test results from this visit will be discussed in further detail at your follow-up appointment, if applicable. Discharge Plan Admission Admit Date/Time: 04/17/22 22:43 Primary Reason for Your Visit: CHF Attending Provider: Kenton Sommers Primary Care Provider: Roe Causey Consulting Providers: Khadra Daley ; Prasad Valencia ; Rosa Leonardo ; Ricardo Rizvi ; Arsen Shea ; Manny Alvarado ; Dorian Colon ; Jose Lee ; Stefania Flores NP ; Kennedi Mccloud Discharge Orders/Prescriptions Prescriptions: Continued (DME) lancets [FreeStyle Lancets] [facility] See Rx Instructions .ROUTE .MEDSUPPLY Qty: 50 RF: 11 (DME) blood-glucose meter [FreeStyle System Kit] Kit See Rx Instructions .ROUTE .MEDSUPPLY Qty: 1 RF: 0 (DME) FreeStyle Test Strip See Rx Instructions .ROUTE .MEDSUPPLY Qty: 50 RF: 11 allopurinol 100 mg Tablet 100 mg PO DAILY RF: 0 lansoprazole 30 mg Capsule,Delayed Release(Dr/Ec) 30 mg PO DAILY PRN (Reason: gerd) RF: 0 glipizide 5 mg tablet 2.5 mg PO BID RF: 0 furosemide 40 mg Tablet 40 mg PO BID RF: 0 potassium chloride 20 mEq tablet,ER particles/crystals 20 meq PO BID RF: 0 simvastatin 10 mg tablet 10 mg PO QHS RF: 0 metformin 1,000 mg tablet 1,000 mg PO BID RF: 0 (DME) wheelchair See Rx Instructions .Route .MEDSUPPLY Qty: 1 RF: 0 Discontinued turmeric root extract 500 mg capsule 500 mg PO BID RF: 0 colby (Zingiber officinalis) 550 mg capsule 550 mg PO BID RF: 0 cinnamon bark 500 mg capsule 500 mg PO BID RF: 0 curaliam PO BID RF: 0 Referrals / Follow Up: Roe Causey MD [Primary Care Provider] - Within 2 Weeks Manny Alvarado DO [STAFF PHYSICIAN] - Within 1 Month Disposition Disposition (needs filled in before D/C Order can be placed): Home, Self Care
--- NOTE | 2022-04-21 11:34 | DS.PCM_ITS ---
Providers Date of Admission: 04/17/22 Primary Care Physician: Dr. Roe Causey MD Consultations 04/18/22 07:00 Consult: Oncology/Hematology Routine Consulting Provider: CCTej Hem/Onc Hari Reason for Consult: Admit w/ acute on chronic hypoxia, increased fever after PRBC, hypotensive EMERGENT Consult: No Notified: Yes Date Notified: 04/18/22 Time Notified: 07:49 Method of Notification: Verbal 04/18/22 13:00 Consult: Labor And Delivery Nurse / Pulmonary Medicine Routine Consulting Provider: [facility] Reason for Consult: acute respiratory failure, pulmonary hypertension EMERGENT Consult: No MD Notified: Yes Date Notified: 04/18/22 Time Notified: 13:00 Method of Notification: Text Reason For Visit: HYPOXIA, BL PNA, POSSIBLE TACO Diagnosis Discharge Diagnosis (1) Bilateral interstitial pneumonia: Status: Acute Code(s): J84.9 - Interstitial pulmonary disease, unspecified (2) Acute and chronic respiratory failure with hypoxia: Status: Chronic Code(s): J96.21 - Acute and chronic respiratory failure with hypoxia Medications at Discharge Home Medications blood sugar diagnostic #50 ea 03/10/22 blood-glucose meter #1 ea 03/10/22 lancets 28 gauge #50 ea 03/10/22 allopurinol 100 mg PO DAILY 04/17/22 furosemide 40 mg PO BID 04/17/22 glipizide 2.5 mg PO BID 04/17/22 lansoprazole 30 mg PO DAILY PRN 04/17/22 metformin 1,000 mg PO BID 04/17/22 potassium chloride 20 meq PO BID 04/17/22 simvastatin 10 mg PO QHS 04/17/22 wheelchair #1 ea 04/17/22 Hospital Course Operations None Procedures None Summary of Care Provided Minutes Spent on Discharge: 32 Hospital Course: 1. Acute on chronic hypoxic respiratory failure * 2/2 CHF complicated by TACO, doubt TRALI, doubt pneumonia. Given the pleural effusions, I doubt the transfusion is solely responsible, but vaishnavi tipped the patient over the edge in pt with HFpEF and PH. * CXR showed findings consistent with infection vs pulmonary edema * improving. * on iV lasix 40mg bid; shortness of breath improved after lasix was startted. * pulmonology on board * DC abx * sputum cultures pending * CTA chest showed no evidence of PE, and showed bilateral groundglass opacities. Bilateral pleural effusions * now back on his baseline oxygen 2. Splenic lymphoma * oncology on board * was recently admitted at [facility] * follow up with oncology on outpatient basis 3. Acute on CHronic HFpEF * EF from 2D echo in February 2022 was 57%, with grade 1 left ventricular diastolic dysfunction and dilated RV, with moderate aortic stenosis * 2D echo during this admission showed EF of 50%, wtith hypokinetic apex, mild aortic stenosis and pulmonary artery systolic pressure of 54mmHg * on IV lasix 40mg bid due to Transfusion related circulatory overload * monitor intake and output * fluid restriction to 1500cc daily 4. Type 2 diabetes mellitus: Oral meds on hold. Insulin sliding scale. Accu- Cheks ACH S. 5. GERD with history of gastric ulcer: On PPI 6. Thrombocytopenia * Platelets are 100 * This likely related to lymphoma. * Currently on Lovenox. * Will monitor platelets and if it drops some more, will DC Lovenox. Medical Records Data Medical Nutrition Assessment Dietitian: Malnutrition Criteria Met Start: 04/18/22 11:41 Freq: Status: Active Protocol: Document 04/18/22 11:42 [facility] (Rec: 04/18/22 11:43 [facility] [id number]) Nutrition Malnutrition Evidence of Malnutrition Exists Yes Malnutrition (severe): Acute Illness/Injury Evidenced By Suboptimal Energy Intake ( Severe),Weight Loss (Severe) Clinical Problem Acute Disease or Injury Related Malnutrition Etiology related to recent chemo tx and pt with poor po intake making it difficult to consume adequate nutrition to meet est nutritional needs Signs/Symptoms as evidenced by <50% po intake and 3.2% wt loss x past 2 wks when pt had chemo tx. Status Active Problem Recommendation Dietitian Recommendations/Changes Will liberalize diet to Consistent CHO d/t signs and symptoms of malnutrition Will order 120 ml glucerna shake 4x/day w/ medpass for increased nutrition if consumed. Weight / BMI Weight Weight: 103.5 kg Body Mass Index (BMI) 35.0 ABG / Lab / Microbiology Data Result Diagrams: 04/21/22 05:50 04/21/22 05:50 Laboratory: Laboratory Results - last 24 hr 04/17/22 19:50: Diff Path Review Reviewed 04/18/22 06:33: Diff Path Review Reviewed 04/19/22 06:00: Diff Path Review Reviewed 04/20/22 11:29: POC Glucose 344 H 04/20/22 16:34: POC Glucose 286 H 04/20/22 21:39: POC Glucose 313 H 04/21/22 05:50: WBC Cancelled, Corrected WBC Cancelled, RBC Cancelled, Hgb Cancelled, Hct Cancelled, MCV Cancelled, MCH Cancelled, MCHC Cancelled, RDW Std Deviation Cancelled, RDW Coeff of Liliana Cancelled, Plt Count Cancelled, MPV Cancelled, Immature Gran % (Auto) Cancelled, Neut % (Auto) Cancelled, Lymph % (Auto) Cancelled, [place] % (Auto) Cancelled, Eos % (Auto) Cancelled, Baso % (Auto) Cancelled, Absolute Neuts (auto) Cancelled, Absolute Lymphs (auto) Cancelled, Total Counted Cancelled, Neutrophils % (Manual) Cancelled, Band Neutrophils % Cancelled, Lymphocytes % (Manual) Cancelled, Monocytes % (Manual) Cancelled, Eosinophils % (Manual) Cancelled, Basophils % (Manual) Cancelled, Metamyelocytes % Cancelled, Myelocytes % Cancelled, Promyelocytes % Cancelled, Blast Cells % Cancelled, Plasma Cell % (Manual) Cancelled, Other Cells % Cancelled, Nucleated RBC % Cancelled, Nucleated RBCs/100 WBC Cancelled, Differential Comment Cancelled, Diff Path Review Cancelled, Hypersegmented Neuts Cancelled, Atypical Lymphocytes Cancelled, Reactive Lymphocytes Cancelled, Smudge Cells Cancelled, Toxic Granulation Cancelled, Toxic Vacuolation Cancelled, Dohle Bodies Cancelled, Joe Rods Cancelled, Platelet Estimate Cancelled, Plt Morphology Comment Cancelled, RBC Morphology Cancelled, Polychromasia Cancelled, Hypochromasia Cancelled, Poikilocytosis Cancelled, Basophilic Stippling Can celled, Anisocytosis Cancelled, Microcytosis Cancelled, Macrocytosis Cancelled, Spherocytes Cancelled, Sickle Cells Cancelled, Target Cells Cancelled, Tear Drop Cells Cancelled, Ovalocytes Cancelled, Stomatocytes Cancelled, [place] Bodies Cancelled, [place] Cells Cancelled, Bite Cells Cancelled, Crenated Cell Cancelled, Acanthocytes (Spur) Cancelled, Rouleaux Cancelled, Schistocytes Cancelled 04/21/22 05:50: Sodium 137, Potassium 3.3 L, Chloride 101, Carbon Dioxide 30.0, Anion Gap 6, BUN 21 H, Creatinine 1.23, Estim Creat Clear Calc 50.75, Est GFR (MDRD) Af Amer 74, Est GFR (MDRD) Non-Af 61, BUN/Creatinine Ratio 17.1, Glucose 180 H, Calcium 8.1 L 04/21/22 05:50: WBC 23.3 H, RBC 2.61 L, Hgb 8.0 L, Hct 25.9 L, MCV 99.2 H, MCH 30.7, MCHC 30.9 L, RDW Std Deviation 64.1 H, RDW Coeff of Liliana 17.7 H, Plt Count 101 L, MPV 9.7, Neut % (Auto) Not Reportable, Absolute Neuts (auto) 4.2, Absolute Lymphs (auto) 5.59 H, Total Counted 100, Neutrophils % (Manual) 18 L, Lymphocytes % (Manual) 24, Monocytes % (Manual) 26 H, Metamyelocytes % 4 H, Myelocytes % 9 H, Other Cells % 19, Diff Path Review May foll, Platelet Estimate SLT DEC, Anisocytosis 1+, Ovalocytes 1+ 04/21/22 06:10: POC Glucose 162 H Microbiology: Microbiology 04/17/22 19:55 Blood Culture (Wb) - Anticubital Left Blood Culture - Preliminary No growth in 48 hours. 04/17/22 19:50 Blood Culture (Wb) - Anticubital Right Blood Culture - Preliminary No growth in 48 hours. 04/18/22 02:00 Urine, Clean Catch Urine Culture - Final Mixed Gram Positive Organisms 04/18/22 00:12 Mucosa - Nose Respiratory Panel (PCR) - Final 04/17/22 02:00 Urine, Clean Catch Legionella Antigen - Final 04/17/22 02:00 Urine, Clean Catch Streptococcus pneumoniae Antigen (M - Final 04/17/22 20:30 Nasal Secretion SARS-CoV-2 & FLU Antigen (Rapid) - Final D/C Instructions Discharge Diet: 6 Cup Fluid Restriction Call your doctor if you observe: Shortness of breath and Swelling in the ankles Meaningful Use Info Meaningful Use Diagnoses (Choose all that apply): CHF CHF BABAR/ARB ordered at discharge?: No Reason BABAR/ARB not ordered?: Not indicated Documented LVEF (%): 50 Discharge Plan Admission Admit Date/Time: 04/17/22 22:43 Primary Reason for Your Visit: CHF Attending Provider: Kenton Sommers Primary Care Provider: Roe Causey Consulting Providers: Khadra Daley ; Prasad Valencia ; Rosa Leonardo ; Ricardo Rizvi ; Arsen Shea ; Manny Alvarado ; Dorian Colon ; Jose Lee ; Stefania Flores MANGLE FEEDER ; Kennedi Mccloud Discharge Orders/Prescriptions Prescriptions: Continued (DME) lancets [FreeStyle Lancets] 28 gauge misc See Rx Instructions .ROUTE .MEDSUPPLY Qty: 50 RF: 11 (DME) blood-glucose meter [FreeStyle System Kit] Kit See Rx Instructions .ROUTE .MEDSUPPLY Qty: 1 RF: 0 (DME) FreeStyle Test Strip See Rx Instructions .ROUTE .MEDSUPPLY Qty: 50 RF: 11 allopurinol 100 mg Tablet 100 mg PO DAILY RF: 0 lansoprazole 30 mg Capsule,Delayed Release(Dr/Ec) 30 mg PO DAILY PRN (Reason: gerd) RF: 0 glipizide 5 mg tablet 2.5 mg PO BID RF: 0 furosemide 40 mg Tablet 40 mg PO BID RF: 0 potassium chloride 20 mEq tablet,ER particles/crystals 20 meq PO BID RF: 0 simvastatin 10 mg tablet 10 mg PO QHS RF: 0 metformin 1,000 mg tablet 1,000 mg PO BID RF: 0 (DME) wheelchair See Rx Instructions .Route .MEDSUPPLY Qty: 1 RF: 0 Discontinued turmeric root extract 500 mg capsule 500 mg PO BID RF: 0 colby (Zingiber officinalis) 550 mg capsule 550 mg PO BID RF: 0 cinnamon bark 500 mg capsule 500 mg PO BID RF: 0 curaliam PO BID RF: 0 Referrals / Follow Up: Roe Causey MD [Primary Care Provider] - Within 2 Weeks Manny Alvarado DO [STAFF PHYSICIAN] - Within 1 Month Disposition Disposition (needs filled in before D/C Order can be placed): Home, Self Care Charges/Coding Visit Charges Inpatient E&M: 91433 Disch Hosp
--- NOTE | 2022-04-21 11:43 | PHA.DC.MR ---
Pharmacy Service has performed discharge medication reconciliation for this patient. The patient's discharge medication list was reviewed for discrepancies and discrepancies were resolved. Home Medications blood sugar diagnostic #50 ea 03/10/22 blood-glucose meter #1 ea 03/10/22 lancets 28 gauge #50 ea 03/10/22 allopurinol 100 mg PO DAILY 04/17/22 furosemide 40 mg PO BID 04/17/22 glipizide 2.5 mg PO BID 04/17/22 lansoprazole 30 mg PO DAILY PRN 04/17/22 metformin 1,000 mg PO BID 04/17/22 potassium chloride 20 meq PO BID 04/17/22 simvastatin 10 mg PO QHS 04/17/22 wheelchair #1 ea 04/17/22
[2022-04-21 12:21] LABS: Bedside Glucose 305 mg/dL (74-106)
[2022-04-21 12:56] LABS: Pathologist Review Reviewed
[2022-04-21 12:57] LABS: Pathologist Review Reviewed
== END 2022-04-21 13:36 | disposition home health service (06) | DRG 640 ==
LOC: ED 22:51 → PCU 23:01
PROVIDERS: Student in an Organized Health Care Education/Training Program; Admitting Provider Family Medicine; Emergency Provider Emergency Medicine; PCP Internal Medicine
DX: E87.71 Transfusion associated circulatory overload (principal); J96.21 Acute and chronic respiratory failure with hypoxia; I50.33 Acute on chronic diastolic (congestive) heart failure; E43 Unspecified severe protein-calorie malnutrition; C83.07 Small cell B-cell lymphoma, spleen; I13.0 Hypertensive heart and chronic kidney disease with heart failure and stage 1 through stage 4 chronic kidney disease, or unspecified chronic kidney disease; J84.9 Interstitial pulmonary disease, unspecified; I27.20 Pulmonary hypertension, unspecified; E11.22 Type 2 diabetes mellitus with diabetic chronic kidney disease; D64.9 Anemia, unspecified; I95.9 Hypotension, unspecified; D69.59 Other secondary thrombocytopenia; I45.10 Unspecified right bundle-branch block; K21.9 Gastro-esophageal reflux disease without esophagitis; M19.90 Unspecified osteoarthritis, unspecified site; N18.2 Chronic kidney disease, stage 2 (mild); F17.220 Nicotine dependence, chewing tobacco, uncomplicated; E87.6 Hypokalemia; I35.0 Nonrheumatic aortic (valve) stenosis; E66.9 Obesity, unspecified; Z87.19 Personal history of other diseases of the digestive system; R00.0 Tachycardia, unspecified; Z79.84 Long term (current) use of oral hypoglycemic drugs; Z79.899 Other long term (current) drug therapy; Z87.891 Personal history of nicotine dependence; Z66 Do not resuscitate; Z68.35 Body mass index [BMI] 35.0-35.9, adult; T45.1X5A Adverse effect of antineoplastic and immunosuppressive drugs, initial encounter
CPT/HCPCS: 36415; 36430; 71045; 71275; 80048; 80053; 81001; 82962; 83605; 83735; 83880; 84145; 85025; 85610; 85730; 86850; 86900; 86901; 86920; 86922; 87040; 87086; 87088; 87428; 87449; 87633; 87641; 93005; 93306; 94002; 94003; 94640; 97110; 97162; 97166; 97530; 97535; 97802; 99251; 99285; 99406; J7030; J7040; P9016; Q9957; Q9967; A4216; C8929; G0463; J0696; J1940

== ENCOUNTER 2022-04-26 15:40 | Inpatient (IN) | payer MEDICARE, SELFPAY ==
[2022-04-26 15:54] VITALS: BP 138/70; PULSE 103; RESP 18; TEMP 36.6; O2SAT 95; BMI 34.4
[2022-04-26 16:45] LABS: Bedside Glucose 140 mg/dL (74-106)
[2022-04-26] MEDS: Zinc Oxide 30gm Tube 1 APPLIC TOPICAL (17:50)
[2022-04-26] MEDS: glipiZIDE 5 MG Tablet PO (17:50)
[2022-04-26] MEDS: metFORMIN HCl 1,000 MG Tablet 1000 MG PO (17:50)
--- NOTE | 2022-04-26 19:18 | NURSING ---
code status verified with patients daughterTabatha--SUHAS
--- NOTE | 2022-04-26 19:39 | HP.PCM_ITS ---
HPI - General General Date of Admission: 04/26/22 HPI Narrative 04/17/2022 NINFA ORONA, is a 71 Male who presents to [facility] Emergency Department with shortness of breath. 04/17/2022 EKG unusual p axis, possible ectopic atrial tachycardia with premature atrial contractions, left axis deviation, right bundle branch block. Shortness of breath, tachycardia, fever. Recent discharge from [facility] on oxygen. Normal saline 1 liter IV, Rocephin, Zithromax given for sepsis, respiratory infection. 04/17/2022 Admit to hospital. Zosyn, Vancomycin for pneumonia. Blood transfusion on day of admission. Lymphoma was in remission. 04/18/2022 BiPAP for acute respiratory failure with hypoxia. 04/18/2022 Echo Normal LV size. EF 50%. Hypokinetic. PASP 54mm HG. 04/18/2022 Breathing improved little bit. Lasix 40mg iv bid for acute on chronic diastolic congestive heart failure. 04/19/2022 Oxygen 4 liters per nasal cannula. CTA chest negative for pulmonary embolism, showed bilateral ground glass opacities. Zosyn IV for pneumonia. 04/20/2022 Shortness of breath, hypoxic with exertion. Continue Zosyn iv, Lasix 40mg iv bid. 04/21/2022 Breathing better. Acute on chronic diastolic congestive heart failure secondary to transfusion associated circulatory overload. Heart failure, not pneumonia, stop Zosyn. 04/21/2022 Patient discharged to home alone. Patient failed discharge home alone, unable to care for self. [facility] Medical History Arthritis Cough Diabetes GERD (gastroesophageal reflux disease) Hearing loss Hypertension Lymphoma, marginal zone, spleen Stomach ulcer Type 2 diabetes mellitus Home Medications allopurinol 300 mg PO DAILY 04/17/22 [History Last Taken 04/17/22] glipizide 2.5 mg PO BREAKFAST 04/17/22 [History Last Taken 04/17/22] lansoprazole 30 mg PO DAILY PRN 04/17/22 [History Last Taken 04/17/22] metformin 1,000 mg PO BID 04/17/22 [History Last Taken 04/17/22] potassium chloride 20 meq PO BID 04/17/22 [History Last Taken 04/17/22] simvastatin 10 mg PO QHS 04/17/22 [History Last Taken 04/16/22] furosemide 40 mg tablet 40 mg PO BID #14 tab 04/22/22 [Rx Last Taken Unknown] FreeStyle Test 04/26/22 [History Last Taken Unknown] blood-glucose meter [FreeStyle System Kit] 04/26/22 [History Last Taken Unknown] glipizide 5 mg PO DINNER 04/26/22 [History Last Taken Unknown] lancets [FreeStyle Lancets] 04/26/22 [History Last Taken Unknown] lorazepam 0.5 mg PO DAILY PRN 04/26/22 [History Last Taken Unknown] wheelchair 04/26/22 [History Last Taken Unknown] zinc oxide 1 applic TOPICAL BID 04/26/22 [History Last Taken Unknown] Allergy/AdvReac Type Severity Reaction Status Date / Time No Known Allergies Allergy Unverified 03/10/22 14:32 Family History Father Arthritis Myocardial infarction, Onset Age: 72 Heart disease Hypertension CVA (cerebral vascular accident) Mother Arthritis Diabetes Hypertension Heart disease Surgical History History of orthopedic surgery Hx of cataract extraction Social History household members: none Smoking Status: Former smoker Tobacco: How many years used: 20 Smokeless tobacco user: chewing tobacco how long ago did patient quit smoking: Quit cigarette tobacco 1981, still using chew tobacco. alcohol intake: never substance use type: does not use what type of physical activity do you participate in: none ROS Constitutional Constitutional: Denies chills, fever(s) or weight gain ENT HEENT: Denies headache(s), nasal congestion or nasal discharge Cardiovascular Cardiovascular: Denies chest pain or palpitations Respiratory/Chest Respiratory/Chest: Denies cough, excessive phlegm production or shortness of breath with exertion Gastrointestinal Gastrointestinal: Denies abdominal pain, nausea or vomiting Genitourinary Genitourinary: Denies dysuria Musculoskeletal Musculoskeletal: Denies joint pain or joint swelling Integumentary Integumentary: Denies rash or wounds Neurologic Neurologic: Denies focal weakness, numbness or tingling Psychiatric Psychiatric: Denies anxiety, auditory hallucinations, depression, homicidal ideation or suicidal ideation Vital Signs Vital Signs Vital Signs: 04/26/22 15:54 04/26/22 16:45 Temperature 97.9 F Temperature Source Temporal Pulse Rate 103 H Pulse Rhythm Regular Pulse Strength Normal (2+) Respiratory Rate 18 Respiratory Effort Normal Non-Labored Respiratory Depth Normal Respiratory Pattern Normal Blood Pressure 138/70 H Blood Pressure Mean 92 Blood Pressure Source Monitor Blood Pressure Position Sitting Blood Pressure Location Right Arm Pulse Ox 95 Oxygen Delivery Method Nasal Cannula Nasal Cannula Oxygen Flow Rate (L/min) 2.5 2.5 Weight Weight: 99.79 kg Body Mass Index (BMI) 34.4 Physical Exam Const alert General Appearance: cooperative HEENT normocephalic Eyes PERRL and EOMs intact bilaterally Neck supple, no JVD and no carotid bruits Resp normal respiratory effort, normal air movement and clear to auscultation bilaterally Cardio regular rate and regular rhythm GI normal to inspection, nondistended, normoactive bowel sounds, non-tender and non-distended Extremity normal capillary refill General Extremity: Negative for edema Skin no rashes or lesions noted General Skin Exam: no breakdown Psych affect normal Appearance: appropriate Results Lab / Micro Data Result Diagrams: 04/27/22 05:24 04/27/22 05:24 Labs: Laboratory Results - last 24 hr 04/26/22 16:37: POC Glucose 140 H Micro: Microbiology 04/26/22 15:55 Nasal Secretion SARS-CoV-2 Antigen (Rapid) - Final Assessment & Plan Assessment/Plan (1) Debility: (2) Acute respiratory failure with hypoxia: (3) Acute on chronic diastolic congestive heart failure: (4) Transfusion associated circulatory overload: (5) Pneumonia: (6) Acute encephalopathy: (7) Lymphoma: (8) Diabetes mellitus: (9) Hyperlipidemia: (10) Gout: (11) Gastroesophageal reflux disease: (12) Hypokalemia: PLAN: 71 year old male with below past medical history hospitalized for acute respiratory failure with hypoxia secondary to acute on chronic diastolic congestive failure from transfusion associated circulatory overload, pneumonia ruled out, complicated by encephalopathy, admitted to TCU with debility, here for rehabilitation, strengthening, prior to discharge home alone. * Debility - PT/OT. * Pain - Tylenol 1000mg q6h prn elizabeth (1-10). * Bowel - Senna/colace 1 tablet bid prn, Dulcolax 10mg daily prn. * Adult immunization - Administer pneumonia vaccine, covid19 vaccine, flu vaccine as appropriate. * DVT prophylaxis - HAS-BLED score 1 intermediate risk of bleeding, Calvin score 6 high risk blood clot, overall risk intermediate, Hold due to anemia. * Gout - Allopurinol 300mg daily. * Hyperlipidemia - Atorvastatin 5mg qhs. * Acute on chronic diastolic congestive heart failure - Furosemide 40mg bid. * Diabetes Mellitus II - Metformin 1000mg bidcm, Glipizide 2.5mg breakfast, 5mg dinner. * Anxiety - Ativan 0.5mg daily prn, stable chronic terminal operations supervisor use, GDR not recommended. * GERD - Pantoprazole 40mg daily prn. * Hypokalemia - K 3.1, KCL 40meq po x 1 dose, increase KCL 20meq tidcm, monitor BMP. * Skin irritation - Zinc oxide topical bid. * Splenic lymphoma - elevated WBC, monitor.
[2022-04-26] MEDS: Atorvastatin Calcium 10 MG Tablet 5 MG PO (20:13)
--- NOTE | 2022-04-26 21:05 | NURSING ---
Paged Dr. West w/ almost immediate return call. Informed pt takes scheduled Tylenol 1000 mg po daily at home per daughter, Tabatha. New order received for Tylenol as stated above.
[2022-04-26] MEDS: Acetaminophen 500 MG Tablet 1000 MG PO (21:46)
[2022-04-26 22:00] LABS: Bedside Glucose 93 mg/dL (74-106)
--- NOTE | 2022-04-27 04:20 | NURSING ---
Addendum entered by Rick Grigsby 04/27/22 04:28: continued: per dtr. elevated temp often occurs in the afternoon Original Note: Per dtr, patient has history of frequent elevated temperatures related to lymphoma dx, rtn Tylenol in place per home routine r/t hx elevated temps
[2022-04-27 05:37] LABS: Basophil# 0.07 X10^3/uL; Eosinophil# 0.33 X10^3/uL; Hematocrit 25.9 % (40-54); Mean Corp Hgb Conc 30.9 g/dL (32-36); Mean Platelet Vol. 9.1 fl (6.2-12.0); Monocyte# 11.45 X10^3/uL; NRBC Flagged by Analyzer 0 % (0-5); POSITIVE DIFFERENTIAL YES; POSITIVE MORPHOLOGY YES; Platelet Count 113 K/mm3 (150-450); RBC Distribution Width CV 17.2 % (11.6-14.6); RBC Distribution Width SD 61.6 fl (35.1-43.9); Red Blood Count 2.67 M/mm3 (4.6-6.2); White Blood Count 28.7 K/mm3 (4.4-11.0)
[2022-04-27 05:48] LABS: Differential Indicated SCAN CRITERIA MET
[2022-04-27] MEDS: Furosemide 40 MG Tablet PO ×2 (05:49→12:47)
[2022-04-27] MEDS: Acetaminophen 500 MG Tablet 1000 MG PO ×3 (05:49→21:29)
[2022-04-27] MEDS: Zinc Oxide 30gm Tube 1 APPLIC TOPICAL ×2 (05:55→17:55)
[2022-04-27 05:58] LABS: Anion Gap 5 (5-15); BUN 19 mg/dL (7-18); BUN/Creat Ratio 19.1 RATIO (10-20); Calcium,Total 8.3 mg/dL (8.5-10.1); Chloride 101 mmol/L (98-107); EST Glomerular Filtration Rate 78 mL/min (>60); Est Glom Filt Rate - Afr Amer 95 mL/min (>60); Estimated Creatinine Clearance 62.43 ml/min; Glucose 83 mg/dL (74-106); Potassium 3.1 mmol/L (3.5-5.1); Sodium Level 138 mmol/L (136-145)
[2022-04-27 06:30] LABS: Bedside Glucose 90 mg/dL (74-106)
[2022-04-27 06:31] LABS: Scan Smear per Review Criteria MANUAL DIFF
[2022-04-27 06:34] LABS: Eosinophil 2 % (0-5); Lymphocyte 80 % (19-41); Monocyte 1 % (0-10); Neutrophil-Segmented 3 % (47-70); Other WBC Type 14 %; Total Cells Counted 100 (MANUAL DIFF)
[2022-04-27 06:35] LABS: Lymphocyte # 22.93 X10^3/ul (0.83-4.51)
[2022-04-27 06:36] LABS: Absolute Lymphocyte Count 22.93 X10^3/uL (0.83-4.51)
[2022-04-27 06:39] LABS: Absolute Neutrophil Count 1.1 X10^3/uL (2.0-7.7); Neutrophil # 1.15 X10^3/uL (2.7-7.7)
[2022-04-27 06:40] LABS: Atypical Lymphocyte 2+ %
[2022-04-27 06:42] LABS: Polychromasia 1+
[2022-04-27 06:43] LABS: Platelet Estimate SLT DEC (ADEQ)
[2022-04-27] MEDS: Potassium Chloride Oral Tablet 20 MEQ PO ×3 (08:46→17:55)
[2022-04-27] MEDS: Potassium Chloride Oral Tablet 20 MEQ 40 MEQ PO (08:46)
[2022-04-27] MEDS: metFORMIN HCl 1,000 MG Tablet 1000 MG PO ×2 (08:46→17:55)
[2022-04-27] MEDS: glipiZIDE 5 MG Tablet 2.5 MG PO (08:47)
[2022-04-27] MEDS: Allopurinol 300 MG Tablet PO (08:47)
[2022-04-27 10:00] VITALS: PULSE 107; RESP 18; O2SAT 96
[2022-04-27] MEDS: Tuberculin,Purif.prot.deriv. 50 TU/ML Vial 0.1 ML ID (12:48)
[2022-04-27 12:55] LABS: Bedside Glucose 151 mg/dL (74-106)
[2022-04-27 13:02] LABS: Pathologist Review Reviewed
--- NOTE | 2022-04-27 14:07 | NURSING ---
Spoke with Dr. Hussein's office, per nurse Olivia pt does not need metformin held after having IV contrast from the Echo bubble study.
--- NOTE | 2022-04-27 15:04 | PCM.PN.DRR ---
TCU RX Drug Regimen Review Subjective: Objective: Allergies No Known Allergies Allergy (Unverified 03/10/22 14:32) Current Medications Generic Name Dose Route Start Last Admin Trade Name Mercedes PRN Reason Stop Dose Admin Acetaminophen 1,000 mg 04/26/22 20:08 Acetaminophen 500 Mg Tablet PO Q6H PRN PRN Pain Score 1-10 Acetaminophen 1,000 mg 04/26/22 22:00 04/27/22 12:47 Acetaminophen 500 Mg Tablet PO 1,000 mg Q8 JENNIFER Administration Allopurinol 300 mg 04/27/22 08:00 04/27/22 08:47 Allopurinol 300 Mg Tablet PO 300 mg DAILYCM JENNIFER Administration Atorvastatin Calcium 5 mg 04/26/22 22:00 04/26/22 20:13 Atorvastatin Calcium 10 Mg Tablet PO 5 mg QHS JENNIFER Administration Bisacodyl 10 mg 04/26/22 20:08 Bisacodyl 5 Mg Tablet PO DAILY PRN Constipation Furosemide 40 mg 04/27/22 06:00 04/27/22 12:47 Furosemide 40 Mg Tablet PO 40 mg 0600,1200 JENNIFER Administration Glipizide 5 mg 04/26/22 17:00 04/26/22 17:50 Glipizide 5 Mg Tablet PO 5 mg DINNER JENNIFER Administration Glipizide 2.5 mg 04/27/22 08:00 04/27/22 08:47 Glipizide 5 Mg Tablet PO 2.5 mg BREAKFAST JENNIFER Administration Lorazepam 0.5 mg 04/27/22 07:49 Lorazepam 0.5 Mg Tablet PO TID PRN ANXIETY/RESTLESSNESS/SLEEP Metformin HCl 1,000 mg 04/26/22 17:00 04/27/22 08:46 Metformin Hcl 1,000 Mg Tablet PO 1,000 mg BIDCM [facility] Administration Multi-Ingredient Ointment 1 applic 04/26/22 18:00 04/27/22 05:55 Zinc Oxide 30gm Tube TOPICAL 1 applic BID [facility] Administration Pantoprazole Sodium 40 mg 04/26/22 17:04 Pantoprazole Sodium 40 Mg Tablet PO DAILY PRN PRN REFLUX/GERD/HEARTBURN Potassium Chloride 20 meq 04/27/22 07:45 04/27/22 12:48 Potassium Chloride Oral Tablet 20 Meq PO 20 meq TIDCM JENNIFER Administration Senna/Docusate Sodium 1 tablet 04/26/22 20:08 Senna/Docusate Sodium 1 Tablet PO BID PRN PRN Constipation Tuberculin PPD 0.1 ml 05/04/22 10:00 Tuberculin,Purif.Prot.Deriv. 50 Tu/Ml Vial ID 05/04/22 10:01 X1 ONE Problem List (Last Reviewed 04/26/22 @ 19:[address] Diogenes West MD) Hypokalemia (Acute) Gastroesophageal reflux disease (Acute) Gout (Acute) Hyperlipidemia (Acute) Diabetes mellitus (Acute) Lymphoma (Acute) Acute encephalopathy (Acute) Pneumonia (Acute) Transfusion associated circulatory overload (Acute) Acute on chronic diastolic congestive heart failure (Chronic) Acute respiratory failure with hypoxia (Acute) Debility (Acute) Vital Signs Temp Pulse Resp BP Pulse Ox 97.9 F 107 H 18 138/70 H 96 04/26/22 15:54 04/27/22 10:00 04/27/22 10:00 04/26/22 15:54 04/27/22 10:00 Oxygen Flow Rate (L/min) 2 Oxygen Delivery Method Room Air Weight: 99.79 kg Body Mass Index (BMI) 34.4 Sodium 138 mmol/L (136-145) 04/27/22 05:24 Potassium 3.1 mmol/L (3.5-5.1) L 04/27/22 05:24 Chloride 101 mmol/L (98-107) 04/27/22 05:24 Carbon Dioxide 32.0 mmol/L (21.0-32.0) 04/27/22 05:24 Anion Gap 5 (5-15) 04/27/22 05:24 BUN 19 mg/dL (7-18) H 04/27/22 05:24 Creatinine 1.00 mg/dL (0.70-1.30) 04/27/22 05:24 Est GFR (MDRD) Af Amer 95 mL/min (>60) 04/27/22 05:24 Est GFR (MDRD) Non-Af 78 mL/min (>60) 04/27/22 05:24 BUN/Creatinine Ratio 19.1 RATIO (10-20) 04/27/22 05:24 Glucose 83 mg/dL (74-106) 04/27/22 05:24
--- NOTE | 2022-04-27 15:41 | CASEMGMT ---
Social Work See attached assessment for complete details. Patient plans to discharge to home with daughter, Anabell. Patient completed MOLST form and wishes to be a DNRCC. Medical team updated. Halley WERNER, MELISSA
--- NOTE | 2022-04-27 15:55 | CASEMGMT ---
Social Work Telephone call from Olivia Muhammad. Patient is active with PT/OT. Olivia request to be updated when patient discharges to resume services. . . Halley WERNER, MELISSA
[2022-04-27 16:00] VITALS: BP 103/55; PULSE 95; RESP 16; TEMP 36.7; O2SAT 98
[2022-04-27 16:45] LABS: Bedside Glucose 151 mg/dL (74-106)
[2022-04-27 17:54] VITALS: O2SAT 98
[2022-04-27] MEDS: glipiZIDE 5 MG Tablet PO (17:55)
[2022-04-27] MEDS: Atorvastatin Calcium 10 MG Tablet 5 MG PO (21:28)
[2022-04-27] MEDS: LORazepam 0.5 MG Tablet PO (21:49)
[2022-04-27 22:01] LABS: Bedside Glucose 163 mg/dL (74-106)
[2022-04-28 05:38] LABS: Absolute Lymphocyte Count 13.45 X10^3/uL (0.83-4.51); Absolute Neutrophil Count 2.5 X10^3/uL (2.0-7.7); Basophil# 0.08 X10^3/uL; Basophil% 0.3 % (0-1); Eosinophil# 0.37 X10^3/uL; Eosinophils% 1.2 % (0-5); Hematocrit 27.1 % (40-54); Hemoglobin 8.3 g/dL (13.0-16.5); Lymphocyte # 13.45 X10^3/ul (0.83-4.51); Lymphocyte % 43.7 % (19-41); Mean Corp Hgb Conc 30.6 g/dL (32-36); Mean Corpuscular Hgb 29.7 pg (27.0-32.0); Mean Corpuscular Volume 97.1 fL (80-94); Mean Platelet Vol. 8.8 fl (6.2-12.0); Monocyte# 14.23 X10^3/uL; Monocyte% 46.2 % (0-10); NRBC Flagged by Analyzer 0 % (0-5); Neutrophil # 2.53 X10^3/uL (2.7-7.7); Neutrophil % 8.1 % (47-70); POSITIVE COUNT YES; POSITIVE DIFFERENTIAL YES; POSITIVE MORPHOLOGY YES; Platelet Count 114 K/mm3 (150-450); RBC Distribution Width CV 17.2 % (11.6-14.6); RBC Distribution Width SD 60.1 fl (35.1-43.9); Red Blood Count 2.79 M/mm3 (4.6-6.2); White Blood Count 30.8 K/mm3 (4.4-11.0)
[2022-04-28 05:49] LABS: Differential Indicated SCAN CRITERIA MET
[2022-04-28 06:07] LABS: ALB/GLOB Ratio 0.7 RATIO (0.9-2.4); AST(SGOT) 80 U/L (15-37); Alanine Aminotransfer ALT/SGPT 60 U/L (16-61); Albumin, Serum 2.3 g/dL (3.2-5.0); Alkaline Phosphatase 224 U/L (45-117); Anion Gap 7 (5-15); BUN 18 mg/dL (7-18); BUN/Creat Ratio 16.8 RATIO (10-20); Calcium,Total 8.6 mg/dL (8.5-10.1); Chloride 101 mmol/L (98-107); Creatinine, Serum 1.07 mg/dL (0.70-1.30); EST Glomerular Filtration Rate 72 mL/min (>60); Est Glom Filt Rate - Afr Amer 87 mL/min (>60); Estimated Creatinine Clearance 58.34 ml/min; Globulin 3.3 g/dL (2.2-4.2); Glucose 82 mg/dL (74-106); LDH 447 U/L (87-241); Potassium 3.5 mmol/L (3.5-5.1); Protein, Total 5.6 g/dL (6.4-8.2); Sodium Level 139 mmol/L (136-145); Uric Acid 5.9 mg/dL (3.5-7.2)
[2022-04-28 06:14] LABS: Atypical Lymphocyte 1+ %
[2022-04-28 06:15] LABS: Differential Comment SCANNED; Platelet Estimate SLT DEC (ADEQ)
[2022-04-28] MEDS: Furosemide 40 MG Tablet PO ×2 (06:27→12:52)
[2022-04-28] MEDS: Zinc Oxide 30gm Tube 1 APPLIC TOPICAL ×2 (06:27→21:36)
[2022-04-28] MEDS: Acetaminophen 500 MG Tablet 1000 MG PO ×3 (06:27→21:33)
[2022-04-28 06:46] LABS: Bedside Glucose 118 mg/dL (74-106)
--- NOTE | 2022-04-28 06:56 | NURSING ---
Lab results faxed to Dr. Alvarado at this time.
[2022-04-28] MEDS: metFORMIN HCl 1,000 MG Tablet 1000 MG PO ×2 (08:32→18:12)
[2022-04-28] MEDS: Potassium Chloride Oral Tablet 20 MEQ PO ×3 (08:32→18:12)
[2022-04-28] MEDS: Allopurinol 300 MG Tablet PO (08:32)
[2022-04-28] MEDS: glipiZIDE 5 MG Tablet 2.5 MG PO (08:32)
[2022-04-28 09:53] VITALS: O2SAT 97
[2022-04-28 10:41] VITALS: O2SAT 95
[2022-04-28 11:16] LABS: Bedside Glucose 162 mg/dL (74-106)
[2022-04-28 12:58] VITALS: BP 106/56; RESP 96
[2022-04-28 13:12] LABS: Pathologist Review Reviewed
[2022-04-28 13:25] VITALS: O2SAT 95
[2022-04-28 14:00] VITALS: PULSE 96; RESP 17; TEMP 36.3; O2SAT 98
[2022-04-28 17:11] LABS: Bedside Glucose 131 mg/dL (74-106)
[2022-04-28] MEDS: glipiZIDE 5 MG Tablet PO (18:12)
--- NOTE | 2022-04-28 21:13 | PCM.PN.DRR ---
TCU RX Drug Regimen Review Subjective: [71yom admitted to TCU for debility, need for conditioning. Recently admitted to [facility] for acute respiratory failure 2/2 acute exacerbation of diastolic heart failure.] Objective: Allergies No Known Allergies Allergy (Unverified 03/10/22 14:32) Current Medications Generic Name Dose Route Start Last Admin Trade Name Freq PRN Reason Stop Dose Admin Acetaminophen 1,000 mg 04/26/22 20:08 Acetaminophen 500 Mg Tablet PO Q6H PRN PRN Pain Score 1-10 Acetaminophen 1,000 mg 04/26/22 22:00 04/28/22 12:57 Acetaminophen 500 Mg Tablet PO 1,000 mg Q8 JENNIFER Administration Allopurinol 300 mg 04/27/22 08:00 04/28/22 08:32 Allopurinol 300 Mg Tablet PO 300 mg DAILYCM JENNIFER Administration Atorvastatin Calcium 5 mg 04/26/22 22:00 04/27/22 21:28 Atorvastatin Calcium 10 Mg Tablet PO 5 mg QHS JENNIFER Administration Bisacodyl 10 mg 04/26/22 20:08 Bisacodyl 5 Mg Tablet PO DAILY PRN Constipation Furosemide 40 mg 04/27/22 06:00 04/28/22 12:52 Furosemide 40 Mg Tablet PO 40 mg 0600,1200 JENNIFER Administration Glipizide 5 mg 04/26/22 17:00 04/28/22 18:12 Glipizide 5 Mg Tablet PO 5 mg DINNER JENNIFER Administration Glipizide 2.5 mg 04/27/22 08:00 04/28/22 08:32 Glipizide 5 Mg Tablet PO 2.5 mg BREAKFAST JENNIFER Administration Lorazepam 0.5 mg 04/27/22 07:49 04/27/22 21:49 Lorazepam 0.5 Mg Tablet PO 0.5 mg TID PRN Administration ANXIETY/RESTLESSNESS/SLEEP Metformin HCl 1,000 mg 04/26/22 17:00 04/28/22 18:12 Metformin Hcl 1,000 Mg Tablet PO 1,000 mg BIDCM JENNIFER Administration Multi-Ingredient Ointment 1 applic 04/26/22 18:00 04/28/22 06:27 Zinc Oxide 30gm Tube TOPICAL 1 applic BID JENNIFER Administration Pantoprazole Sodium 40 mg 04/26/22 17:04 Pantoprazole Sodium 40 Mg Tablet PO DAILY PRN PRN REFLUX/GERD/HEARTBURN Potassium Chloride 20 meq 04/27/22 07:45 04/28/22 18:12 Potassium Chloride Oral Tablet 20 Meq PO 20 meq TIDCM JENNIFER Administration Senna/Docusate Sodium 1 tablet 04/26/22 20:08 Senna/Docusate Sodium 1 Tablet PO BID PRN PRN Constipation Tuberculin PPD 0.1 ml 05/04/22 10:00 Tuberculin,Purif.Prot.Deriv. 50 Tu/Ml Vial ID 05/04/22 10:01 X1 ONE Problem List (Last Reviewed 04/26/22 @ 19:[address] Diogenes West MD) Hypokalemia (Acute) Gastroesophageal reflux disease (Acute) Gout (Acute) Hyperlipidemia (Acute) Diabetes mellitus (Acute) Lymphoma (Acute) Acute encephalopathy (Acute) Pneumonia (Acute) Transfusion associated circulatory overload (Acute) Acute on chronic diastolic congestive heart failure (Chronic) Acute respiratory failure with hypoxia (Acute) Debility (Acute) Vital Signs Temp Pulse Resp BP Pulse Ox 97.3 F L 96 17 106/56 L 98 04/28/22 14:00 04/28/22 14:00 04/28/22 14:00 04/28/22 12:58 04/28/22 14:00 Oxygen Flow Rate (L/min) 3 Oxygen Delivery Method Nasal Cannula Weight: 99.79 kg Body Mass Index (BMI) 34.4 Sodium 139 mmol/L (136-145) 04/28/22 05:31 Potassium 3.5 mmol/L (3.5-5.1) 04/28/22 05:31 Chloride 101 mmol/L (98-107) 04/28/22 05:31 Carbon Dioxide 31.0 mmol/L (21.0-32.0) 04/28/22 05:31 Anion Gap 7 (5-15) 04/28/22 05:31 BUN 18 mg/dL (7-18) 04/28/22 05:31 Creatinine 1.07 mg/dL (0.70-1.30) 04/28/22 05:31 Est GFR (MDRD) Af Amer 87 mL/min (>60) 04/28/22 05:31 Est GFR (MDRD) Non-Af 72 mL/min (>60) 04/28/22 05:31 BUN/Creatinine Ratio 16.8 RATIO (10-20) 04/28/22 05:31 Glucose 82 mg/dL (74-106) 04/28/22 05:31 Assessment/Plan: 1. CHF, diastolic: Currently on furosemide 40mg po bid. Pt was previously on enalapril bid, however, per patient's daughter, was discontinued a few months ago due to hypotension. Also not on beta-maryse, however, blood pressures are marginal and recent history of hypotension. K=3.5 on 04/28, Scr = 1.07 on 04/28. Continue to monitor renal function and electrolytes, monitor for SOB, lower extremity edema, blood pressure. 2. Lymphoma with recent history of tumor lysis - no current treatment for lymphoma but is on allopurinol 300mg daily. Note that discharge med list stated dose of 100mg daily. Spoke with pt's daughter (who manages his meds), states dose was increased from 100mg daily to 300mg daily in last couple of weeks. K=3.5 on 04/28, Scr = 1.07 on 04/28, AST/ALT = 80/60 on 04/28, uric acid 5.9 on 04/28. Continue to monitor electrolytes, renal function, uric acid as needed, AST/ALT, sx of rash, CBC. 3. DM2 - currently on glipizide 2.5mg in AM, 5mg in PM and metformin 1000mg po bid. Blood glucose since admit have ranged from 90-162. Note that glipizide was stopped at end of February by PCP. Per michelleter, glipizide was restarted last month when blood sugars were again elevated after chemo. A1c in February was 4.1%. eGFR currently ~70. Monitor blood sugars closely given this history, monitor for symptoms of hypoglycemia, po intake, renal function (for metformin). 4. Hyperlipidemia - currently on atorvastatin 5mg po daily, pt takes simvastatin 10mg po daily at home. Last lipid profile done in 02/2022 - LDL 120, HDL 24. AST/ALT = 80/60 on 04/28. Continue to monitor ALT/AST as AST mildly elevated (but less than 3x ULN). If becomes elevated (>3-5 times ULN) without alternative explanation, may need to consider stopping statin. Monitor for muscle pain. 5. GERD with history of gastric ulcer - currently on pantoprazole 40mg po daily prn reflux symptoms. Pt has not used any doses since admission to TCU. Continue to monitor for prn use, symptoms of reflux. 6. Hypokalemia - currently on KCL 20 mEq po TID. K was 3.1 on 04/27 but improved to 3.5 on 04/28. Will likely need continued replacement due to furosemide therapy. Continue to monitor serum potassium, renal function and symptoms of GI upset. 7. Constipation - currently on senna-S 1 tab po bid prn and bisacodyl 10mg po daily prn - pt has not used any doses of either med since admission to TCU. Monitor bowel movement and prn medication use. 8. Skin integrity - currently on zinc oxide topically bid. Monitor for skin breakdown, s/sx of infection. 9. Pain, history of osteoarthritis. Currently on acetaminophen 1gm po TID and 1gm po q6h prn pain score 1-10. Note that pt takes programmed acetaminophen for elevated temperatures secondary to lymphoma diagnosis. Pt has not used any doses of prn since admission to TCU, no c/o of pain noted in chart. Since pt will be receiving 3gm/day of acetaminophen from programmed order, consider stopping prn order to avoid potential to exceed max dose of 4gm/day. Assessment/Plan for indications treated with psychotropic medications: 10. Anxiety - currently on lorazepam 0.5mg po tid prn, has taken one dose since admission to TCU. Did review PDMP and confirmed that pt has this dose filled 04/22/21. Per attending physician note, GDR is not recommended at this time. Note that pt does have recent cancer diagnosis. Current prn order does not have stop date, prn psychotropics (non-antipsychotics) can be extended beyond 14 days for a defined duration if rationale documented. Medical chart and medication regimen reviewed. The following medication irregularities or issues were identified: * Currently on acetaminophen 1gm po TID and 1gm po q6h prn pain score 1-10. Since pt will be receiving 3gm/day of acetaminophen from programmed order, consider stopping prn order to avoid potential to exceed max dose of 4gm/day. * Current prn order for lorazepam does not have stop date, prn psychotropics (non-antipsychotics) can be extended beyond 14 days for a defined duration if rationale documented. Date of Note:: 04/28/22
[2022-04-28] MEDS: Atorvastatin Calcium 10 MG Tablet 5 MG PO (21:33)
[2022-04-28] MEDS: LORazepam 0.5 MG Tablet PO (21:34)
[2022-04-28 21:45] LABS: Bedside Glucose 198 mg/dL (74-106)
[2022-04-29] MEDS: Furosemide 40 MG Tablet PO ×2 (06:19→11:06)
[2022-04-29] MEDS: Acetaminophen 500 MG Tablet 1000 MG PO ×3 (06:19→20:01)
[2022-04-29] MEDS: Zinc Oxide 30gm Tube 1 APPLIC TOPICAL (06:20)
--- NOTE | 2022-04-29 06:24 | NURSING ---
Patient assisted to restroom. Wash basin with soap and water given. Patient washing himself up.
[2022-04-29 06:26] LABS: Anion Gap 5 (5-15); BUN 19 mg/dL (7-18); BUN/Creat Ratio 17.4 RATIO (10-20); Calcium,Total 8.8 mg/dL (8.5-10.1); Chloride 101 mmol/L (98-107); Creatinine, Serum 1.09 mg/dL (0.70-1.30); EST Glomerular Filtration Rate 71 mL/min (>60); Est Glom Filt Rate - Afr Amer 85 mL/min (>60); Estimated Creatinine Clearance 57.27 ml/min; Glucose 95 mg/dL (74-106); Potassium 3.6 mmol/L (3.5-5.1); Sodium Level 139 mmol/L (136-145)
[2022-04-29 06:31] LABS: Bedside Glucose 81 mg/dL (74-106)
[2022-04-29] MEDS: metFORMIN HCl 1,000 MG Tablet 1000 MG PO ×2 (08:07→17:10)
[2022-04-29] MEDS: Allopurinol 300 MG Tablet PO (08:07)
[2022-04-29] MEDS: glipiZIDE 5 MG Tablet 2.5 MG PO (08:07)
[2022-04-29] MEDS: Potassium Chloride Oral Tablet 20 MEQ PO ×3 (08:07→17:10)
[2022-04-29 08:44] VITALS: O2SAT 96
[2022-04-29 10:00] VITALS: O2SAT 94
[2022-04-29 10:51] LABS: Bedside Glucose 231 mg/dL (74-106)
--- NOTE | 2022-04-29 11:08 | NURSING ---
Clarified Code status with patient and wants to DNRCC-A No intubation DNR signed and placed in chart.
--- NOTE | 2022-04-29 13:06 | CASEMGMT ---
Social Work IDT met with patient and 4 daughters for care plan meeting. Discussed patient's progress in PT/OT/SN. Explained Medicare benefit. Pt does not have a secondary insurance. The copay days start on day 21 which is 05/16. The goal is to DC by that date. Pt will return home living with dtr, Anabell, with 4 steps to enter. Pt has O2 at home. Offered to set DC date, [facility] vs OP therapy. Pt requesting DC 05/02 with [facility], whom he used prior. Dtr to transport. IDT agreeable. Referral made to [facility] PT/OT/SN. No DME. Plan: DC home with dtr 05/02, [facility] PT/OT/SN ALPHONSO Vo
[2022-04-29 15:29] VITALS: BP 110/59; PULSE 107; RESP 16; TEMP 37.2; O2SAT 98
[2022-04-29 16:11] LABS: Bedside Glucose 131 mg/dL (74-106)
--- NOTE | 2022-04-29 16:39 | CASEMGMT ---
Social Work Completed living will and HCPOA with pt. Pt named Tabatha blandon, as primary. Original and copy provided to pt. Copies placed on chart. Marta Cutler, WELDING MACHINE SETTER BODY CARE MANAGER
[2022-04-29] MEDS: glipiZIDE 5 MG Tablet PO (17:10)
[2022-04-29] MEDS: Atorvastatin Calcium 10 MG Tablet 5 MG PO (20:01)
[2022-04-29 21:31] LABS: Bedside Glucose 105 mg/dL (74-106)
--- NOTE | 2022-04-29 21:55 | PCM.DC.SUM ---
Providers Date of Admission: 04/26/22 Primary Care Physician: Dr. Roe Causey MD Consultations 04/27/22 07:50 Consult: Oncology/Hematology Routine Consulting Provider: Manny Alvarado Reason for Consult: Splenic lymphoma. EMERGENT Consult: No MD Notified: Yes Date Notified: 04/27/22 Time Notified: 10:23 Method of Notification: Verbal Reason For Visit: PNEUMONIA, HYPOXIA Diagnosis Discharge Diagnosis (1) Debility: Status: Acute Code(s): R53.81 - Other malaise (2) Acute respiratory failure with hypoxia: Status: Acute Code(s): J96.01 - Acute respiratory failure with hypoxia (3) Acute on chronic diastolic congestive heart failure: Status: Chronic Code(s): I50.33 - Acute on chronic diastolic (congestive) heart failure (4) Transfusion associated circulatory overload: Status: Acute Code(s): E87.71 - Transfusion associated circulatory overload (5) Pneumonia: Status: Acute Code(s): J18.9 - Pneumonia, unspecified organism (6) Acute encephalopathy: Status: Acute Code(s): G93.40 - Encephalopathy, unspecified (7) Lymphoma: Status: Acute Code(s): C85.90 - Non-Hodgkin lymphoma, unspecified, unspecified site (8) Diabetes mellitus: Status: Acute Code(s): E11.9 - Type 2 diabetes mellitus without complications (9) Hyperlipidemia: Status: Acute Code(s): E78.5 - Hyperlipidemia, unspecified (10) Gout: Status: Acute Code(s): M10.9 - Gout, unspecified (11) Gastroesophageal reflux disease: Status: Acute Code(s): K21.9 - Gastro-esophageal reflux disease without esophagitis (12) Hypokalemia: Status: Acute Code(s): E87.6 - Hypokalemia Medications at Discharge Home Medications allopurinol 100 mg tablet 300 mg PO DAILY GOUT 04/17/22 glipizide 5 mg tablet 2.5 mg PO BREAKFAST diabetes 04/17/22 lansoprazole 30 mg capsule,delayed release 30 mg PO DAILY PRN gerd 04/17/22 metformin 1,000 mg tablet 1,000 mg PO BID diabetes 04/17/22 simvastatin 10 mg tablet 10 mg PO QHS cholesterol 04/17/22 furosemide 40 mg tablet 40 mg PO BID water pill #14 tabs 04/22/22 blood sugar diagnostic (FreeStyle Test) 04/26/22 blood-glucose meter (FreeStyle System Kit) 04/26/22 glipizide 5 mg tablet 5 mg PO DINNER DM 04/26/22 lancets 28 gauge (FreeStyle Lancets) 04/26/22 wheelchair 04/26/22 zinc oxide 1 applic topical BID skin protection 04/26/22 acetaminophen 500 mg tablet 1,000 mg PO Q8 #0 tabs 04/29/22 lorazepam 0.5 mg tablet 0.5 mg PO DAILY PRN Anxiety 30 days #30 tabs 04/29/22 potassium chloride 20 mEq tablet,extended release(part/cryst) (Klor-Con M) 20 meq PO TIDCM 30 days #90 tabs 04/29/22 Hospital Course Operations None Procedures None Summary of Care Provided Minutes Spent on Discharge: 35 Hospital Course: 71 year old male with below past medical history hospitalized for acute respiratory failure with hypoxia secondary to acute on chronic diastolic congestive failure from transfusion associated circulatory overload, pneumonia ruled out, complicated by encephalopathy, admitted to TCU with debility, here for rehabilitation, strengthening, prior to discharge home alone. Discharge home with daughter 05/02/2022, [facility] Care PT/OT/SN. Physical Exam Const alert General Appearance: cooperative HEENT normocephalic Eyes PERRL and EOMs intact bilaterally Neck supple, no JVD and no carotid bruits Resp normal respiratory effort, normal air movement and clear to auscultation bilaterally Cardio regular rate and regular rhythm GI normal to inspection, nondistended, normoactive bowel sounds, non-tender and non-distended Extremity normal capillary refill General Extremity: Negative for edema Skin no rashes or lesions noted General Skin Exam: no breakdown Psych affect normal Appearance: appropriate Weight / BMI Weight Weight: 98.089 kg Body Mass Index (BMI) 34.4 ABG / Lab / Microbiology Data Result Diagrams: 04/28/22 05:31 04/29/22 05:20 Laboratory: Laboratory Results - last 24 hr 04/29/22 05:20: Sodium 139, Potassium 3.6, Chloride 101, Carbon Dioxide 33.0 H, Anion Gap 5, BUN 19 H, Creatinine 1.09, Estim Creat Clear Calc 57.27, Est GFR (MDRD) Af Amer 85, Est GFR (MDRD) Non-Af 71, BUN/Creatinine Ratio 17.4, Glucose 95, Calcium 8.8 04/29/22 06:18: POC Glucose 81 04/29/22 10:42: POC Glucose 231 H 04/29/22 16:00: POC Glucose 131 H 04/29/22 21:28: POC Glucose 105 Microbiology: Microbiology 04/27/22 14:50 Nasal Secretion SARS-CoV-2 Antigen (Rapid) - Final 04/26/22 15:55 Nasal Secretion SARS-CoV-2 Antigen (Rapid) - Final D/C Instructions Discharge Diet: No restrictions Discharge Activity: Return to Normal Activity Weight Bearing Status: Weight bearing as tolerated Call your doctor if you observe: Fever of 101 or Higher, Inability to urinate, Inability to have a bowel movement, Shortness of breath, Dizziness, Fainting spells, Swelling in the ankles, Chest pain and Uncontrolled pain Additional Instructions: Discharge home with daughter 05/02/2022, [facility] Care PT/OT/SN. Meaningful Use Info Meaningful Use Diagnoses (Choose all that apply): None applicable Discharge Plan Admission Admit Date/Time: 04/26/22 15:40 Primary Reason for Your Visit: Debility. Attending Provider: Diogenes West Chi Primary Care Provider: Roe Causey Consulting Providers: Manny Alvarado Instructions Additional Instructions / Restrictions: Discharge home with daughter 05/02/2022, [facility] Care PT/OT/SN. Discharge Orders/Prescriptions Prescriptions: New acetaminophen 500 mg Tablet 1,000 mg PO Q8 Qty: 0 0RF potassium chloride [Klor-Con M20] 20 mEq Tablet,Er Particles/Crystals 20 meq PO TIDCM 30 Days Qty: 90 0RF Continued allopurinol 100 mg Tablet 300 mg PO DAILY lansoprazole 30 mg Capsule,Delayed Release(Dr/Ec) 30 mg PO DAILY PRN (Reason: gerd) glipizide 5 mg tablet 2.5 mg PO BREAKFAST Label Comments: TAKE 1/2 (ONE-HALF) TABLET BY MOUTH ONCE DAILY IN THE MORNING AND 1 ONCE DAILY IN THE EVENING simvastatin 10 mg tablet 10 mg PO QHS metformin 1,000 mg tablet 1,000 mg PO BID zinc oxide Cream 1 applic TOPICAL BID glipizide 5 mg Tablet 5 mg PO DINNER lorazepam 0.5 mg Tablet 0.5 mg PO DAILY PRN (Reason: Anxiety) 30 Days Qty: 30 0RF furosemide 40 mg tablet 40 mg PO BID Qty: 14 0RF Rx Instructions: takes in AM and at 1200 Discontinued potassium chloride 20 mEq tablet,ER particles/crystals 20 meq PO BID Label Comments: TAKE 1 TABLET BY MOUTH TWICE DAILY FOR 7 DAYS Rx Instructions: rx for 7 days, complete 04/17 No Action (DME) FreeStyle Test Strip See Rx Instructions .ROUTE .MEDSUPPLY Rx Instructions: check blood glucose daily (DME) blood-glucose meter [FreeStyle System Kit] Kit See Rx Instructions .ROUTE .MEDSUPPLY Rx Instructions: check blood glucose daily for type 2 DM (DME) lancets [FreeStyle Lancets] 28 gauge misc See Rx Instructions .ROUTE .MEDSUPPLY Rx Instructions: Check blood glucose daily for type 2 DM (DME) wheelchair See Rx Instructions Rx Instructions: As directed Referrals / Follow Up: Roe Causey MD [Primary Care Provider] - Disposition Disposition (needs filled in before D/C Order can be placed): Home Health Service
[2022-04-30] MEDS: Acetaminophen 500 MG Tablet 1000 MG PO ×3 (05:28→21:10)
[2022-04-30] MEDS: Furosemide 40 MG Tablet PO ×2 (05:28→12:06)
[2022-04-30] MEDS: Zinc Oxide 30gm Tube 1 APPLIC TOPICAL (05:30)
[2022-04-30 05:32] VITALS: BP 114/66
[2022-04-30 06:20] LABS: Bedside Glucose 82 mg/dL (74-106)
[2022-04-30] MEDS: Allopurinol 300 MG Tablet PO (08:15)
[2022-04-30] MEDS: Potassium Chloride Oral Tablet 20 MEQ PO ×3 (08:15→17:48)
[2022-04-30] MEDS: glipiZIDE 5 MG Tablet 2.5 MG PO (08:16)
[2022-04-30] MEDS: metFORMIN HCl 1,000 MG Tablet 1000 MG PO ×2 (08:16→17:48)
[2022-04-30 10:00] VITALS: PULSE 105; RESP 18; O2SAT 97
[2022-04-30 10:56] LABS: Bedside Glucose 188 mg/dL (74-106)
[2022-04-30 14:43] VITALS: BP 116/61; PULSE 105; RESP 16; TEMP 36.8; O2SAT 98
--- NOTE | 2022-04-30 15:26 | NURSING ---
Family notified of covid positive employee.
[2022-04-30 16:41] LABS: Bedside Glucose 191 mg/dL (74-106)
[2022-04-30] MEDS: glipiZIDE 5 MG Tablet PO (17:48)
[2022-04-30] MEDS: Atorvastatin Calcium 10 MG Tablet 5 MG PO (21:10)
[2022-04-30 21:16] LABS: Bedside Glucose 150 mg/dL (74-106)
[2022-05-01] MEDS: Acetaminophen 500 MG Tablet 1000 MG PO ×3 (06:08→21:00)
[2022-05-01] MEDS: Zinc Oxide 30gm Tube 1 APPLIC TOPICAL ×2 (06:08→17:17)
[2022-05-01] MEDS: Furosemide 40 MG Tablet PO ×2 (06:08→11:59)
--- NOTE | 2022-05-01 06:12 | NURSING ---
Patient reports penis bleeding earlier but I was too embarrassed to say anything, penis assessed with patient consent, small amount red drainage observed to glans, redness observed, encouraged to request assist as needed with ADLs, verbalized understanding, expresses thanks. Written communication left for Dr. West requesting cream, patient notified that expected to arrive to unit this AM, and nurse will assist with any ordered creams. Juice and crackers accepted for blood glucose 66
[2022-05-01 06:16] LABS: Bedside Glucose 66 mg/dL (74-106)
[2022-05-01 06:55] LABS: Bedside Glucose 122 mg/dL (74-106)
[2022-05-01] MEDS: Potassium Chloride Oral Tablet 20 MEQ PO ×3 (08:36→17:15)
[2022-05-01] MEDS: glipiZIDE 5 MG Tablet 2.5 MG PO (08:36)
[2022-05-01] MEDS: Allopurinol 300 MG Tablet PO (08:36)
[2022-05-01] MEDS: Nystatin/Triamcin Cream Tube 1 APPLIC TOPICAL ×2 (08:36→17:16)
[2022-05-01] MEDS: metFORMIN HCl 1,000 MG Tablet 1000 MG PO ×2 (08:36→17:16)
[2022-05-01 10:55] LABS: Bedside Glucose 210 mg/dL (74-106)
--- NOTE | 2022-05-01 13:10 | CASEMGMT ---
Social Work BIMS and PHQ-9 completed for MDS assessment Marta Cutler, FOOD PREPARATION WORKER [employer]
[2022-05-01 13:45] VITALS: BP 111/56; PULSE 106; RESP 18; TEMP 36.2; O2SAT 99
--- NOTE | 2022-05-01 15:00 | MDS.RN ---
Pain interview for SADIE 05/02/22 completed.
[2022-05-01 16:05] LABS: Bedside Glucose 151 mg/dL (74-106)
[2022-05-01] MEDS: glipiZIDE 5 MG Tablet PO (17:16)
[2022-05-01 21:00] VITALS: PULSE 102; RESP 18; O2SAT 97
[2022-05-01] MEDS: Atorvastatin Calcium 10 MG Tablet 5 MG PO (21:00)
[2022-05-01 21:35] LABS: Bedside Glucose 102 mg/dL (74-106)
[2022-05-02] MEDS: Furosemide 40 MG Tablet PO (06:06)
[2022-05-02] MEDS: Acetaminophen 500 MG Tablet 1000 MG PO (06:06)
[2022-05-02] MEDS: Nystatin/Triamcin Cream Tube 1 APPLIC TOPICAL (06:08)
[2022-05-02 06:30] LABS: Bedside Glucose 82 mg/dL (74-106)
[2022-05-02] MEDS: Potassium Chloride Oral Tablet 20 MEQ PO (08:28)
[2022-05-02] MEDS: Zinc Oxide 30gm Tube 1 APPLIC TOPICAL (08:29)
[2022-05-02] MEDS: Allopurinol 300 MG Tablet PO (08:29)
[2022-05-02] MEDS: glipiZIDE 5 MG Tablet 2.5 MG PO (08:29)
[2022-05-02] MEDS: metFORMIN HCl 1,000 MG Tablet 1000 MG PO (08:29)
[2022-05-02 09:57] VITALS: BP 112/62; PULSE 102; RESP 18; TEMP 36.2; O2SAT 96
--- NOTE | 2022-05-07 12:34 | MDS.RN ---
Information for the mds was obtained from review of the clinical record, interview of resident, staff, and direct observation of resident's care.
== END 2022-05-02 10:25 | disposition home health service (06) | DRG 292 ==
PROVIDERS: Internal Medicine Hematology & Oncology; Admitting Provider Family Medicine Geriatric Medicine; PCP Internal Medicine; Visit Provider Family Medicine Geriatric Medicine
DX: I11.0 Hypertensive heart disease with heart failure (principal); C83.07 Small cell B-cell lymphoma, spleen; I45.2 Bifascicular block; E11.9 Type 2 diabetes mellitus without complications; I50.32 Chronic diastolic (congestive) heart failure; K21.9 Gastro-esophageal reflux disease without esophagitis; E78.5 Hyperlipidemia, unspecified; M10.9 Gout, unspecified; E87.6 Hypokalemia; F41.9 Anxiety disorder, unspecified; M19.90 Unspecified osteoarthritis, unspecified site; K59.00 Constipation, unspecified; Z79.84 Long term (current) use of oral hypoglycemic drugs; Z87.891 Personal history of nicotine dependence; Z79.899 Other long term (current) drug therapy; Z23 Encounter for immunization
CPT/HCPCS: 36415; 80048; 80053; 82962; 83615; 84550; 85025; 87426; 97110; 97116; 97162; 97166; 97530; 97535; 97802

== ENCOUNTER → 2022-05-04 | Outpatient (CLI) | payer MEDICARE, SELFPAY ==
[2022-05-04 14:01] LABS: ALB/GLOB Ratio 0.8 RATIO (0.9-2.4); AST(SGOT) 55 U/L (15-37); Alanine Aminotransfer ALT/SGPT 38 U/L (16-61); Albumin, Serum 2.9 g/dL (3.2-5.0); Alkaline Phosphatase 175 U/L (45-117); Anion Gap 8 (5-15); BUN 24 mg/dL (7-18); BUN/Creat Ratio 21.4 RATIO (10-20); Calcium,Total 9.9 mg/dL (8.5-10.1); Chloride 100 mmol/L (98-107); Creatinine, Serum 1.12 mg/dL (0.70-1.30); EST Glomerular Filtration Rate 68 mL/min (>60); Est Glom Filt Rate - Afr Amer 83 mL/min (>60); Globulin 3.6 g/dL (2.2-4.2); Glucose 175 mg/dL (74-106); LDH 541 U/L (87-241); Potassium 4.2 mmol/L (3.5-5.1); Protein, Total 6.5 g/dL (6.4-8.2); Sodium Level 138 mmol/L (136-145)
== END | disposition home or self-care (01) ==
LOC: LABSPEC 11:22
PROVIDERS: PCP Internal Medicine; Referring Provider Internal Medicine Hematology & Oncology; Visit Provider Internal Medicine Hematology & Oncology
DX: C83.07 Small cell B-cell lymphoma, spleen (principal)
CPT/HCPCS: 80053; 83615

== ENCOUNTER → 2022-08-19 | Outpatient (CLI) | payer MEDICARE, SELFPAY ==
--- NOTE | 2022-08-20 08:08 | EKG12_ITS ---
Test Reason : PALPITATIONS Blood Pressure : / mmHG Vent. Rate : 104 BPM Atrial Rate : 104 BPM P-R Int : 200 ms QRS Dur : 144 ms QT Int : 388 ms P-R-T Axes : 076 258 032 degrees QTc Int : 510 ms Sinus tachycardia Right bundle branch block Abnormal ECG Confirmed by SOCORRO SAUL, TE ([id number]), fan mail editor MELINDA COREAS ([id number]) on 08/20/2022 8:09:26 AM Referred By: Junior Dominguez Confirmed By:TE QUINTANILLA MD
== END | disposition home or self-care (01) ==
LOC: PSN 08:18
PROVIDERS: PCP Internal Medicine; Referring Provider Nurse Practitioner Family; Visit Provider Nurse Practitioner Family
DX: R00.2 Palpitations (principal)
CPT/HCPCS: 93005

== ENCOUNTER → 2022-11-17 | Outpatient (CLI) | payer MEDICARE, SELFPAY ==
[2022-11-17 16:31] LABS: Hematocrit 36.2 % (40-54); Hemoglobin 12.3 g/dL (13.0-16.5); Mean Corpuscular Hgb 31.4 pg (27.0-32.0); Mean Corpuscular Volume 92.3 fL (80-94); Mean Platelet Vol. 9.1 fl (6.2-12.0); POSITIVE COUNT YES; POSITIVE MORPHOLOGY YES; Platelet Count 326 K/mm3 (150-450); RBC Distribution Width CV 14.6 % (11.6-14.6); RBC Distribution Width SD 48.9 fl (35.1-43.9); Red Blood Count 3.92 M/mm3 (4.6-6.2); White Blood Count 6.4 K/mm3 (4.4-11.0)
[2022-11-17 16:58] LABS: Anion Gap 9 (5-15); BUN 22 mg/dL (7-18); BUN/Creat Ratio 17.5 RATIO (10-20); Calcium,Total 9.6 mg/dL (8.5-10.1); Chloride 104 mmol/L (98-107); Creatinine, Serum 1.26 mg/dL (0.70-1.30); EST Glomerular Filtration Rate 60 mL/min (>60); Est Glom Filt Rate - Afr Amer 72 mL/min (>60); Glucose 85 mg/dL (74-106); Potassium 4.1 mmol/L (3.5-5.1); Sodium Level 141 mmol/L (136-145)
[2022-11-17 17:07] LABS: Eosinophil 3 % (0-5); Lymphocyte 17 % (19-41); Monocyte 11 % (0-10); Neutrophil-Band 3 % (0-5); Neutrophil-Segmented 66 % (47-70); Total Cells Counted 100 (MANUAL DIFF)
[2022-11-17 17:08] LABS: Differential Indicated MANUAL DIFF; Platelet Estimate ADEQUATE (ADEQ); Red Cell Morphology NORM C+C NORMAL (NORM C&C)
[2022-11-17 17:09] LABS: Absolute Lymphocyte Count 1.09 X10^3/uL (0.83-4.51); Absolute Neutrophil Count 4.4 X10^3/uL (2.0-7.7)
[2022-11-18 13:28] LABS: Pathologist Review Reviewed
== END | disposition home or self-care (01) ==
LOC: BIMLAB 15:04
PROVIDERS: PCP Internal Medicine; Visit Provider Nurse Practitioner Family
DX: R53.81 Other malaise (principal); I10 Essential (primary) hypertension
CPT/HCPCS: 36415; 80048; 85025

== ENCOUNTER → 2022-12-30 | Outpatient (CLI) | payer MEDICARE, SELFPAY ==
--- NOTE | 2022-12-30 16:36 | RAD_ITS ---
EXAM: XR CHEST, 2 VIEWS CLINICAL INDICATION: dyspnea TECHNIQUE: Frontal and lateral views of the chest. This report was created using [employer] report generation technology. COMPARISON: XR Chest dated 04/17/2022 FINDINGS: LUNGS AND PLEURAL SPACES: Normal. No consolidation or edema. No pneumothorax. No effusion. HEART: Normal heart size. MEDIASTINUM: No mediastinal or hilar mass. BONES/JOINTS: Prominent osteophytosis noted within the cervical spine. Densely ossified right coracoclavicular ligament. SOFT TISSUES: Normal. RAD/Chest PA and Lateral IMPRESSION: No acute cardiopulmonary abnormality. Osseous changes suggestive of hyperostosis. Electronically Signed: Yury Alfred MD at 13:52 EST ,
[2022-12-30 16:49] LABS: Basophil# 0.02 X10^3/uL; Eosinophil# 0.23 X10^3/uL; Hematocrit 31.5 % (40-54); Hemoglobin 10.6 g/dL (13.0-16.5); Lymphocyte # 0.94 X10^3/ul (0.83-4.51); Mean Corp Hgb Conc 33.7 g/dL (32-36); Mean Corpuscular Hgb 32.1 pg (27.0-32.0); Mean Corpuscular Volume 95.5 fL (80-94); Mean Platelet Vol. 8.9 fl (6.2-12.0); Monocyte# 0.51 X10^3/uL; NRBC Flagged by Analyzer 0 % (0-5); POSITIVE COUNT YES; POSITIVE MORPHOLOGY YES; Platelet Count 163 K/mm3 (150-450); RBC Distribution Width CV 15.5 % (11.6-14.6); RBC Distribution Width SD 54.1 fl (35.1-43.9)
[2022-12-30 16:56] LABS: Differential Indicated SCAN CRITERIA MET
[2022-12-30 17:06] LABS: Scan Smear per Review Criteria MANUAL DIFF
[2022-12-30 17:32] LABS: Eosinophil 4 % (0-5); Lymphocyte 29 % (19-41); Monocyte 11 % (0-10); Neutrophil-Band 8 % (0-5); Neutrophil-Segmented 48 % (47-70); Total Cells Counted 100 (MANUAL DIFF)
[2022-12-30 17:35] LABS: Absolute Lymphocyte Count 1.16 X10^3/uL (0.83-4.51); Absolute Neutrophil Count 2.2 X10^3/uL (2.0-7.7)
[2022-12-30 17:50] LABS: BNP,B-Type NATRIURETIC PEPTIDE 155.6 pg/mL (0-100)
[2022-12-30 18:25] LABS: ALB/GLOB Ratio 0.8 RATIO (0.9-2.4); AST(SGOT) 32 U/L (15-37); Alanine Aminotransfer ALT/SGPT 30 U/L (16-61); Alkaline Phosphatase 163 U/L (45-117); Anion Gap 10 (5-15); BUN 19 mg/dL (7-18); BUN/Creat Ratio 17.3 RATIO (10-20); Calcium,Total 9.1 mg/dL (8.5-10.1); Chloride 105 mmol/L (98-107); EST Glomerular Filtration Rate 70 mL/min (>60); Est Glom Filt Rate - Afr Amer 84 mL/min (>60); Glucose 225 mg/dL (74-106); Potassium 3.7 mmol/L (3.5-5.1); Sodium Level 139 mmol/L (136-145)
[2023-01-01 09:40] LABS: Pathologist Review Reviewed
== END | disposition home or self-care (01) ==
PROVIDERS: PCP Internal Medicine; Referring Provider Nurse Practitioner Family; Visit Provider Nurse Practitioner Family
DX: R53.81 Other malaise (principal); R06.01 Orthopnea
CPT/HCPCS: 36415; 71046; 80053; 83880; 84443; 85025

== ENCOUNTER → 2023-02-02 | Outpatient (CLI) | payer MEDICARE, SELFPAY ==
[2023-02-02 12:57] LABS: Anion Gap 8 (5-15); BUN 23 mg/dL (7-18); BUN/Creat Ratio 16.7 RATIO (10-20); Calcium,Total 9.2 mg/dL (8.5-10.1); Chloride 105 mmol/L (98-107); Creatinine, Serum 1.38 mg/dL (0.70-1.30); EST Glomerular Filtration Rate 54 mL/min (>60); Est Glom Filt Rate - Afr Amer 65 mL/min (>60); Glucose 162 mg/dL (74-106); Potassium 3.8 mmol/L (3.5-5.1); Sodium Level 142 mmol/L (136-145); Thyroid Stim Hormone (TSH) 9.04 uIU/mL (0.358-3.74)
== END | disposition home or self-care (01) ==
LOC: BIMLAB 08:49
PROVIDERS: PCP Internal Medicine; Referring Provider Nurse Practitioner Family; Visit Provider Nurse Practitioner Family
DX: I35.0 Nonrheumatic aortic (valve) stenosis (principal); I10 Essential (primary) hypertension; R53.81 Other malaise
CPT/HCPCS: 36415; 80048; 84443

== ENCOUNTER → 2023-05-04 | Outpatient (CLI) | payer MEDICARE, SELFPAY ==
[2023-05-04 13:38] LABS: Absolute Lymphocyte Count 5.71 X10^3/uL (0.83-4.51); Absolute Neutrophil Count 6.3 X10^3/uL (2.0-7.7); Basophil# 0.09 X10^3/uL; Basophil% 0.3 % (0-1); Eosinophils% 0.3 % (0-5); Hemoglobin 9.3 g/dL (13.0-16.5); Lymphocyte # 5.71 X10^3/ul (0.83-4.51); Lymphocyte % 18.3 % (19-41); Mean Corp Hgb Conc 32.1 g/dL (32-36); Mean Corpuscular Volume 96.7 fL (80-94); Mean Platelet Vol. 9.6 fl (6.2-12.0); Monocyte# 17.64 X10^3/uL; Monocyte% 56.6 % (0-10); NRBC Flagged by Analyzer 0.1 % (0-5); Neutrophil # 6.31 X10^3/uL (2.7-7.7); Neutrophil % 20.3 % (47-70); POSITIVE COUNT YES; POSITIVE DIFFERENTIAL YES; POSITIVE MORPHOLOGY YES; Platelet Count 75 K/mm3 (150-450); RBC Distribution Width CV 14.6 % (11.6-14.6); RBC Distribution Width SD 50.2 fl (35.1-43.9); White Blood Count 31.2 K/mm3 (4.4-11.0)
[2023-05-04 13:48] LABS: Differential Indicated SCAN CRITERIA MET
[2023-05-04 14:17] LABS: ALB/GLOB Ratio 0.8 RATIO (0.9-2.4); AST(SGOT) 40 U/L (15-37); Alanine Aminotransfer ALT/SGPT 29 U/L (16-61); Alkaline Phosphatase 203 U/L (45-117); Anion Gap 9 (5-15); BUN 19 mg/dL (7-18); Calcium,Total 9.2 mg/dL (8.5-10.1); Chloride 104 mmol/L (98-107); Creatinine, Serum 1.19 mg/dL (0.70-1.30); EST Glomerular Filtration Rate 64 mL/min (>60); Est Glom Filt Rate - Afr Amer 77 mL/min (>60); Globulin 3.8 g/dL (2.2-4.2); Glucose 179 mg/dL (74-106); Protein, Total 6.8 g/dL (6.4-8.2); Sodium Level 138 mmol/L (136-145); Thyroid Stim Hormone (TSH) 3.47 uIU/mL (0.358-3.74)
[2023-05-04 14:23] LABS: Other WBC Type 31.2 %
[2023-05-06 13:30] LABS: Pathologist Review Reviewed
== END | disposition home or self-care (01) ==
LOC: BIMLAB 09:45
PROVIDERS: PCP Internal Medicine; Referring Provider Nurse Practitioner Family; Visit Provider Nurse Practitioner Family
DX: R53.81 Other malaise (principal); E11.9 Type 2 diabetes mellitus without complications; E03.9 Hypothyroidism, unspecified
CPT/HCPCS: 36415; 80053; 84443; 85025

== ENCOUNTER 2023-05-14 10:55 | Outpatient (CLI) | payer MEDICARE, SELFPAY ==
[2023-05-14 11:24] VITALS: BP 110/57; PULSE 92; RESP 16; TEMP 36.2; O2SAT 95; BMI 31.8
[2023-05-14] MEDS: 0.9% NaCl Peripheral Flush Adult/Peds IV (11:45)
[2023-05-14 12:09] VITALS: BP 106/50; PULSE 88; RESP 16; TEMP 36.6
[2023-05-14 13:09] VITALS: BP 110/56; PULSE 78; RESP 16; TEMP 36.6; O2SAT 96
[2023-05-14] MEDS: Furosemide 20 MG/2 ML VIAL 10 MG IV (14:06)
[2023-05-14 14:07] VITALS: BP 105/48; PULSE 90; RESP 16; TEMP 36.6; O2SAT 99
== END 2023-05-14 10:56 | disposition home or self-care (01) ==
LOC: MEDOUTP 10:56
PROVIDERS: PCP Internal Medicine; Referring Provider Internal Medicine Hematology & Oncology; Visit Provider Internal Medicine Hematology & Oncology
DX: C83.01 Small cell B-cell lymphoma, lymph nodes of head, face, and neck (principal)
CPT/HCPCS: 36430; 86850; 86900; 86901; 86920; 86922; J7040; P9016; A4216; J1940

== ENCOUNTER 2023-06-08 08:30 | Outpatient (CLI) | payer MEDICARE, SELFPAY ==
[2023-06-08 08:35] VITALS: BP 138/62; PULSE 108; RESP 16; TEMP 36.1; O2SAT 97
[2023-06-08 09:21] VITALS: BP 99/49; PULSE 90; RESP 16; TEMP 36.7
[2023-06-08] MEDS: 0.9% NaCl VAD Flush IV (09:27)
[2023-06-08 10:21] VITALS: BP 125/60; PULSE 91; RESP 16; TEMP 36.3; O2SAT 96
[2023-06-08] MEDS: Furosemide 20 MG/2 ML VIAL IV (10:50)
[2023-06-08 11:13] VITALS: BP 111/59; PULSE 83; RESP 16; TEMP 36.1; O2SAT 93
[2023-06-08 12:13] VITALS: BP 111/66; PULSE 85; RESP 16; TEMP 36.7
== END 2023-06-08 08:31 | disposition home or self-care (01) ==
LOC: MEDOUTP 09:38
PROVIDERS: PCP Internal Medicine; Visit Provider Internal Medicine Hematology & Oncology
DX: Z51.89 Encounter for other specified aftercare (principal); C83.07 Small cell B-cell lymphoma, spleen
CPT/HCPCS: 36430; 86850; 86900; 86901; 86920; 86922; J7040; P9016; A4216; J1940